=== PATIENT | female | born 1960 | race Caucasian/White ===

== ENCOUNTER 2021-02-05 09:46 | Observation (INO) | payer SELFPAY ==
[2021-02-05] VITALS (12 sets, daily range): BP systolic 91–114; BP diastolic 50–73; PULSE 74–110; RESP 16–20; TEMP 36.2–36.9; O2SAT 95–99; BMI 29.7
--- NOTE | ~2021-02-05 | CT_ITS ---
EXAMINATION: CT abdomen pelvis w con EXAM DATE: 02/05/2021 10:51 INDICATION: Lower abdominal pain, bloody stools. TECHNIQUE: Spiral CT of the abdomen and pelvis was performed following intravenous injection of 100 m L Omnipaque 350. Axial, coronal and sagittal images of the abdomen and pelvis were reviewed. The do se-length product (DLP) for this examination was 510.29 mGy-cm. The exposure was tailored according to patient size (auto mA exposure control), and iterative reconstruction (ASIR) was used as additiona l dose reduction technique. Comparison is made to prior examination from 10/25/2018. FINDINGS: The liver, spleen, adrenal glands and pancreas are unremarkable. Gallbladder is unremark able. No biliary obstruction. There is no nephrolithiasis or hydronephrosis. The uterus is not id entified and has likely been surgically resected. The bladder is unremarkable. There is no retroper itoneal or pelvic lymphadenopathy. Moderate aortoiliac arterial sclerosis. There is severe transverse and descending colonic wall edema with some surrounding fat stranding, les s edema in the sigmoid colon. There are scattered colonic diverticula, however these findings likely are colitis rather than diverticulitis. There is no pneumatosis, and superior mesenteric vasculature enhances as expected. Most likely infectious etiology. The appendix is normal. The stomach and small bowel are unremarkable. No free intraperitoneal gas. The heart is normal in size. There are no pericardial or pleural effusions. The lung bases are unremarkable. There are no osteoblastic or ost eolytic lesions identified. Moderate to severe disc disease L4-5 and L5-S1. IMPRESSION: 1. Transverse and descending colonic colitis, probably infectious etiology but check lactate. 2. Resolution of previously seen pancreatic tail low density region. 3. Colonic diverticulosis. Reviewed, dictated and finalized at location A.
--- NOTE | ~2021-02-05 | XR_ITS ---
EXAMINATION: XR chest 2V DATE: 02/06/2021 15:54 INDICATION: Shortness of breath. Coarse breath sounds. TECHNIQUE: PA and lateral views of the chest were obtained. COMPARISON: Chest radiograph dated 10/25/2018 FINDINGS: The lungs remain clear with no focal airspace opacities, pulmonary edema, pleural effusion or pneumot horax. The cardiomediastinal silhouette is normal. Right breast implant. A few tiny surgical clips pr ojecting over the left infraclavicular region. Osteopenia with chronic lower thoracic compression fra cture, likely T9. IMPRESSION: 1. No acute cardiopulmonary disease. Reviewed, dictated and finalized at location A.
--- NOTE | 2021-02-05 10:12 | PC.NURSE ---
Ambulatory steady gait to room, x1.5 days N/V/D, bilat lower abd cramping pains like labor , denies dysuria and states after I urinate it relieves the pain . +daily cigarette smoker 1 PPD, states I quit alcohol two days ago , denies hx withdrawal seizures
--- NOTE | 2021-02-05 10:16 | ED.ABDPAIN ---
HPI - Abdominal Pain General Chief Complaint: Abdominal Pain Stated Complaint: abd pain Time Seen by Provider: 02/05/21 10:01 Source: patient Mode of arrival: ambulatory Limitations: no limitations History of Present Illness HPI narrative: This is a 60 year old female who presents for evaluation of left lower abdominal pain. She states this pain has been present for 2 days. It is constant and nonradiating. She developed nausea, vomiting and diarrhea yesterday. She also reports she passed significant amount of blood in her stool yesterday. She denies diarrhea or bloody stools today. She has not taken anything for pain. She denies history of diverticulitis or diverticulosis. She has never had a colonoscopy due to lack of insurance. She does not taken anticoagulation. Onset (ago): day(s) (2) Pain Consistency: constant Location: LLQ Exacerbating factors: movement Associated symptoms: nausea, vomiting, diarrhea and hematochezia Related Data Home Medications Medication Instructions Recorded Confirmed aspirin [Adult Low Dose Aspirin] 81 mg PO HS 02/05/21 02/05/21 metoprolol succinate 25 mg PO HS 02/05/21 02/05/21 multivit with min-folic acid 1 tablet PO HS 02/05/21 02/05/21 [Adult One Daily Multivitamin] omega-3 fatty acids [Fish Oil] 1,000 mg PO HS 02/05/21 02/05/21 quetiapine 300 mg PO HS 02/05/21 02/05/21 simvastatin 20 mg PO HS 02/05/21 02/05/21 Allergies Allergy/AdvReac Type Severity Reaction Status Date / Time Sulfa (Sulfonamide Allergy Unknown Difficulty Verified 02/05/21 15:12 Antibiotics) Breathing Review of Systems Review of Systems: All systems reviewed & are unremarkable except as noted in HPI and below PMFSH Past Medical History Medical History (Updated 02/05/21 @ 15:46 by Maame Tyler PA-C) Anxiety Cancer of left breast Status post bilateral mastectomy and chemoradiation. Depression Dyslipidemia Hypertension Tobacco abuse Surgical History Surgical History (Updated 02/05/21 @ 15:42 by Maame Tyler PA-C) History of bilateral mastectomy History of hysterectomy History of tonsillectomy Family History Family History Mother Diabetes mellitus Grandparent Diabetes mellitus Social History Social History (Updated 02/05/21 @ 15:42 by Maame Tyler PA-C) Social History: Surrogate decision maker: Cyndee Cobos, daughter. Code status: Full code. Smoking packs per day: 1 Smoking cigarettes per day: 20.0 Years smoked: 40 Smoking pack-years: 40.00 Smoking status: Current every day smoker Tobacco type: cigarettes Second hand tobacco smoke exposure: Yes Alcohol intake: former Drinks per week: 15 Substance use: never Additional living arrangements comments: The patient lives in [place]. Gender identity (if verbalized by the patient): Female Sexual Orientation (if Verbalized by the Patient): Straight or Heterosexual Spiritual care concerns: No Exam Const: General: no acute distress and alert Orientation/consciousness: patient oriented x3 Chest: Chest palpation & inspection: normal inspection of the chest Resp: Effort & Inspection: normal respiratory effort and no retractions Auscultation: clear to auscultation bilaterally Cardio: Rate: regular rate Rhythm: regular rhythm Heart sounds: no murmurs GI: GI Palp: Yes Soft to palpation, Yes Tenderness to palpation present (GI) and Yes Guarding due to palpation present (GI) Auscultation: Hypoactive bowel sounds present Skin: General skin exam: normal color Neuro: General: patient oriented x3, moves all extremities and CN's II-XI intact bilaterally Course Reevaluation(s) Date: 02/05/21 Time: 11:40 Consultations Consultation #1: I discussed case with Dr. Epps CT and labs. He accepts patient to hospitalist service for colitis. IT is likely infectious so they will assess to see if she needs GI consult. Date: 02/05/21
[2021-02-05 10:19] LABS: Basophils Percent Auto 0.3 % (0.2-1.2); Eosinophils Absolute Auto 0.2 K/mm3 (0-0.3); Eosinophils Percent Auto 1.2 % (0-4.4); Hematocrit 39.4 % (37.0-47.0); Hemoglobin 13.5 g/dL (12.0-15.0); Immature Granulocyte Absolute 0.06 K/mm3 (0.00-0.031); Immature Granulocyte Percent A 0.4 % (0-0.5); Immature Platelet Fraction Pct 4.3 % (0.9-11.2); Lymphocytes Absolute Auto 3.05 K/mm3 (0.9-3.2); Lymphocytes Percent Auto 20.7 % (18.3-44.2); Mean Corpuscular HGB Conc 34.3 g/dl (32-36); Mean Corpuscular Volume 99.2 fl (80-100); Mean Platelet Volume 10.8 fl (7.4-10.4); Monocytes Absolute Auto 0.7 K/mm3 (0.1-0.6); Monocytes Percent Auto 4.6 % (2.6-8.5); Neutrophils Absolute Auto 10.7 K/mm3 (1.3-6.7); Neutrophils Percent Auto 72.8 % (45.5-73.1); Platelet Count Result 283 k/mm3 (150-375); Red Blood Count 3.97 M/mm3 (4.2-5.4); Red Cell Distribution Width 12.8 % (11.5-14.5); White Blood Count 14.7 K/mm3 (4.5-10.0)
[2021-02-05 10:22] LABS: Add Urine Microscopic? YES; Appearance Urine Cloudy (Clear); Bacteria Urine 2+ /hpf; Bilirubin Urine Negative (Negative); Blood Urine Negative (Negative); Color Urine Yellow (Yellow); Glucose Urine UA Negative (Negative); Ketones Urine Negative (Negative); Leukocyte Esterase Ur Negative LEU/UL (Negative); Mucus Urine Rare /lpf; Nitrate Urine Negative (Negative); Protein Urine Negative (Negative); RBC Urine 0-2 /hpf (0-2); Specific Grav Ur 1.006 (1.001-1.035); Squamous Epithelial Cell Urine Occasional /hpf (Few); Urobilinogen Urine Negative mg/dL (<2.0); WBC Urine 0-3 /hpf
[2021-02-05] MEDS: ONDANSETRON INJ 4 MG/2 ML VIAL IV PUSH (10:40)
[2021-02-05] MEDS: LACTATED RINGERS 1,000 ML 999 ML IV CONT (10:40)
[2021-02-05] MEDS: MORPHINE SULFATE (*CRX) 4 MG/ML INJ IV PUSH (10:40)
[2021-02-05 10:44] LABS: INR 0.9
[2021-02-05 10:48] LABS: Lactic Acid Reflex 1.1 mmol/L (0.7-2.1); Partial Thromboplastin Time 26.4 SECONDS (22.3-36.8)
[2021-02-05 10:48] LABS: Estimated CRCL calculation 92 ml/min; Estimated Glomerular Filt Rate > 60
[2021-02-05 11:05] LABS: Alanine Aminotransferase 25 U/L (4-35); Albumin Level 4.2 g/dL (3.5-5.1); Alkaline Phosphatase 81 U/L (38-126); Anion Gap 5 mmol/L (8-16); Aspartate Amino Transferase 25 U/L (14-36); Bilirubin,Total 0.3 mg/dL (0.2-1.3); Blood Urea Nitrogen 13 mg/dL (7-17); Calcium 8.9 mg/dL (8.4-10.2); Carbon Dioxide 29 mmol/L (22-30); Chloride 100 mmol/L (98-107); Estimated CRCL calculation 92 ml/min; Estimated Glomerular Filt Rate > 60; Glucose 130 mg/dL (65-105); Lipase 46 U/L (23-300); Potassium 3.8 mmol/L (3.4-5.0); Sodium 134 mmol/L (137-145)
--- NOTE | 2021-02-05 14:22 | PC.NURSE ---
This patient, Shelby Mera, was admitted to [facility] Surg Room 313-01. Patient/family oriented to hospital policies and general routines including ID bracelet, bed and alarms, visiting hours, pain management, procedures, bathroom and other care routines, personal items, smoking policy, room service/diet, and visiting hours.Report received from Tiffanie AMADOR Information on how to activate the Rapid Response Team has been discussed. Patient/Family are encouraged to report perceived risks to care and to ask questions if they do not understand what they are told or what they should do.
--- NOTE | 2021-02-05 14:30 | PM.IMHP ---
H&P: HPI History of Present Illness Date/Time: 02/05/21 14:30 Chief Complaint: Abdominal pain. Narrative: This is a 60-year-old female smoker with hypertension, dyslipidemia, and depression who presented to the emergency department earlier today for evaluation of abdominal pain for the last 2 days. She reports a gradual onset of diffuse lower abdominal cramping discomfort since Tuesday. It seems to come and go in waves of intensity ?just like labor pains? and she gives no aggravating or alleviating factors. The discomfort does not radiate but seems to have centered more so in the left abdomen over the last day or so. She had multiple episodes of diarrhea on Tuesday, at 1 point in time she passed what she thought was a pretty large amount of bright red blood per rectum. Since that time she has continued to have abdominal discomfort and has passed a lot of flatus. She has not eaten much over the last 2 days and her diarrhea has tapered off, in fact she has not had a bowel movement since sometime yesterday. Imaging today showed findings of colitis and she reports having 3 similar episodes over the last couple of months although this is the 1st time that she has been evaluated for it. She has never had a colonoscopy and has no known history of inflammatory bowel disease. She has not had any change in weight and denies recent travel, recent antibiotic use, and sick contacts. No fever, chills, or sweats. She denies vomiting. Review of Systems Review of Systems: Narrative: Twelve systems were reviewed with pertinent positives and negatives as per HPI. She denies cold and flu symptoms. No chest pain or shortness of breath. Weight has remained stable. No dysuria. Fully vaccinated against COVID-19. Drinks 2 to 3 glasses of wine a night. She has never had signs or symptoms of alcohol withdrawal. Except as documented, all other systems were reviewed and are negative. [facility] Past Medical History Medical History Anxiety Cancer of left breast Status post bilateral mastectomy and chemoradiation. Depression Dyslipidemia Hypertension Tobacco abuse Surgical History Surgical History History of bilateral mastectomy History of hysterectomy History of tonsillectomy Family History Family History Mother Diabetes mellitus Grandparent Diabetes mellitus Social History Social History (Updated 02/06/21 @ 00:27 by Maame Tyler PA-C) Social History: Surrogate decision maker: Cyndee Cobos, daughter. Code status: Full code. Smoking packs per day: 1 Smoking cigarettes per day: 20.0 Years smoked: 40 Smoking pack-years: 40.00 Smoking status: Current every day smoker Tobacco type: cigarettes Second hand tobacco smoke exposure: Yes Alcohol intake: former Drinks per week: 15 Substance use: never Additional living arrangements comments: The patient lives in [place]. 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 Gender identity (if verbalized by the patient): Female Sexual Orientation (if Verbalized by the Patient): Straight or Heterosexual Spiritual care concerns: No Meds Home Medications and Allergies Home Medications Medication Instructions Recorded Confirmed Type aspirin [Adult Low Dose Aspirin] 81 mg PO HS 02/05/21 02/05/21 History metoprolol succinate 25 mg PO HS 02/05/21 02/05/21 History multivit with min-folic acid 1 tablet PO HS 02/05/21 02/05/21 History [Adult One Daily Multivitamin] omega-3 fatty acids [Fish Oil] 1,000 mg PO HS 02/05/21 02/05/21 History quetiapine 300 mg PO HS 02/05/21 02/05/21 History simvastatin 20 mg PO HS 02/05/21 02/05/21 History Allergies Allergy/AdvReac Type Severity Reaction Status Date / Time Sulfa (Sulfonamide Allergy Unknown Difficult
[2021-02-05] MEDS: LACTATED RINGERS 1,000 ML 125 ML IV CONT ×2 (14:41→23:22)
[2021-02-05] MEDS: THERAPEUTIC MULTIVITAMINS/MINERALS TAB (*BKC) 1 TABLET PO (20:37)
[2021-02-05] MEDS: QUEtiapine FUMARATE 100 MG TABLET 300 MG PO (20:37)
[2021-02-05] MEDS: SIMVASTATIN 20 MG TABLET PO (20:37)
[2021-02-05] MEDS: OMEGA 3 POLYUNSAT FATTY ACIDS 1 GM CAP PO (20:37)
[2021-02-06] VITALS (9 sets, daily range): BP systolic 92–151; BP diastolic 53–104; PULSE 92–108; RESP 16–20; TEMP 36.1–37; O2SAT 95–99
[2021-02-06 06:20] LABS: Basophils Percent Auto 0.3 % (0.2-1.2); Eosinophils Absolute Auto 0.3 K/mm3 (0-0.3); Eosinophils Percent Auto 3.4 % (0-4.4); Hematocrit 32.6 % (37.0-47.0); Hemoglobin 10.8 g/dL (12.0-15.0); Immature Granulocyte Absolute 0.03 K/mm3 (0.00-0.031); Immature Granulocyte Percent A 0.3 % (0-0.5); Lymphocytes Absolute Auto 3.41 K/mm3 (0.9-3.2); Lymphocytes Percent Auto 39.7 % (18.3-44.2); Mean Corpuscular HGB Conc 33.1 g/dl (32-36); Mean Corpuscular Hemoglobin 34.1 pg (26-34); Mean Corpuscular Volume 102.8 fl (80-100); Mean Platelet Volume 10.1 fl (7.4-10.4); Monocytes Absolute Auto 0.5 K/mm3 (0.1-0.6); Monocytes Percent Auto 5.5 % (2.6-8.5); Neutrophils Absolute Auto 4.4 K/mm3 (1.3-6.7); Neutrophils Percent Auto 50.8 % (45.5-73.1); Platelet Count Result 220 k/mm3 (150-375); Red Blood Count 3.17 M/mm3 (4.2-5.4); White Blood Count 8.6 K/mm3 (4.5-10.0)
[2021-02-06 06:30] LABS: Alanine Aminotransferase 19 U/L (4-35); Albumin Level 3.5 g/dL (3.5-5.1); Alkaline Phosphatase 57 U/L (38-126); Anion Gap 5 mmol/L (8-16); Aspartate Amino Transferase 21 U/L (14-36); Bilirubin,Total < 0.1 mg/dL (0.2-1.3); Blood Urea Nitrogen 10 mg/dL (7-17); Calcium 8.6 mg/dL (8.4-10.2); Carbon Dioxide 28 mmol/L (22-30); Chloride 105 mmol/L (98-107); Estimated CRCL calculation 93 ml/min; Estimated Glomerular Filt Rate > 60; Glucose 138 mg/dL (65-105); Magnesium 1.6 mg/dL (1.6-2.3); Potassium 3.6 mmol/L (3.4-5.0); Sodium 138 mmol/L (137-145)
[2021-02-06] MEDS: PANTOPRAZOLE SODIUM IV 40 MG VIAL IV PUSH (08:31)
[2021-02-06] MEDS: LACTATED RINGERS 1,000 ML 80 ML IV CONT (11:47)
--- NOTE | 2021-02-06 13:19 | PM.IMPN ---
Progress Note: A&P Assessment and Plan (1) Acute colitis: Code(s): K52.9 - Noninfective gastroenteritis and colitis, unspecified Status: Acute Assessment and Plan: Presumed infectious colitis -She has been started on Zosyn per antibiotic stewardship recommendations -Stool cultures ordered although she has not been able to produce a bowel movement -she has had multiple episodes like this in the past -GI has been consulted -she may have issues obtaining a colonoscopy outpatient as she has no insurance. I have asked her to discuss her concerns with the GI doctor (2) Hypertension: Code(s): I10 - Essential (primary) hypertension Status: Chronic Assessment and Plan: Last blood pressure 118/77 -will hold metoprolol due to some hypotension but it appears she is improving so consider restarting with tomorrows home medications if she continues to have normal bps. (3) Dyslipidemia: Code(s): E78.5 - Hyperlipidemia, unspecified Status: Acute Assessment and Plan: Continue statin. LFTs within normal limits. (4) Depression with anxiety: Code(s): F41.8 - Other specified anxiety disorders Status: Acute Assessment and Plan: Continue quetiapine. (5) Tobacco abuse: Code(s): Z72.0 - Tobacco use Status: Acute Assessment and Plan: Smoking cessation is encouraged. She declines the need for nicotine patch. (6) Hyperglycemia: Code(s): R73.9 - Hyperglycemia, unspecified Status: Acute Assessment and Plan: Fasting glucose 138 -pt reports she checks her glucose randomly at home and is usually elevated and she would not be surprised if she had diabetes -a1c in the AM Time Spent With Patient Time with patient: 25 - 35 minutes Subjective Date/time seen: 02/06/21 13:19 Interval history: Pt is a 60 year old female here for colitis. Patient was seen today and states her pain had been pretty well controlled but in the last hour so she has been having more abdominal pain. She rates this as a sharp for added 10 pain in her lower abdomen. She has not had any bowel movements since admission. She is passing gas. Although she is not diabetic, she says she has a glucometer and takes her blood glucose occasionally and is pretty sure she has diabetes. She does not have insurance and is worried about obtaining a colonoscopy outpatient as she does not think she will be able to do so. She states that she has not really eaten solid food since Tuesday and feels little better compared to prior to admission but still does not feel at baseline. Of note, she had coarse breath sounds and she states that she smokes and occasionally gets short of breath when bring in the groceries and wheezes. She has no chest pain with this. Review of Systems Review of Systems: All systems reviewed & are unremarkable except as noted in HPI and below Exam Narrative: Exam Narrative: General: Well developed well nourished patient in NAD HEENT: normocephalic Neck: supple Neuro: Alert and oriented x 4 CV:RRR Resp: Coarse breath sounds throughout, no wheezing Abd: Soft, nondistended. Exquisite pain in the left upper quadrant and lower quadrants. Positive bowel sounds Extremities: No swelling, erythema, or pain to palpation to the lower extremity. Objective Data Vital Signs Vital Signs: Vital Signs - 24 hr 02/05/21 13:35 02/05/21 14:00 02/05/21 15:50 Temperature 98.4 F Pulse Rate 96 88 74 Respiratory Rate 20 16 Blood Pressure 93/50 L 92/58 L Pulse Oximetry 98 97 98 02/05/21 18:17 02/05/21 18:18 02/05/21 20:00 Temperature Pulse Rate 96 100 85 Respiratory Rate 16 16 Blood Pressure 105/67 101/67 104/67 Pulse Oximetry 98 98 02/05/21 20:05 02/05/21 20:10 02/05/21 20:15 Temperature Pulse Rate 97 100 Respiratory Rate Blood Pressure 114/65 113/67 Pulse Oximetry 96 02/05/21 21:44 02/06/21 06:00
--- NOTE | 2021-02-06 13:34 | WPDGICN ---
Assessment and Plan Assessment and plan (1) Acute colitis: Code(s): K52.9 - Noninfective gastroenteritis and colitis, unspecified Status: Acute Assessment and Plan: started on iv antibiotics and feeling better, could be ischemic, infectious, ibd, etc no more diarrhea and pain has improved she is asking to go home, probably complete 5 days of oral antibiotics with only soft diet as tolerated will need to have a colonoscopy 4-5 weeks since never had one but she says that will be impossible because lack of insurance. I encourage her to seek for financial help and call our office, hopefully we could do her colonoscopy as recommended (2) Lower abdominal pain: Code(s): R10.30 - Lower abdominal pain, unspecified Status: Acute Assessment and Plan: signifincantly improved no fever and normal wbc today (3) Bloody diarrhea: Code(s): R19.7 - Diarrhea, unspecified Status: Acute Assessment and Plan: denies any more (4) Tobacco abuse: Code(s): Z72.0 - Tobacco use Status: Acute Assessment and Plan: needs to quit smoking (5) Depression with anxiety: Code(s): F41.8 - Other specified anxiety disorders Status: Acute (6) Hypertension: Code(s): I10 - Essential (primary) hypertension Status: Chronic (7) Alcohol use: Code(s): Z72.89 - Other problems related to lifestyle Status: Acute Assessment and Plan: she drinks 3 glasses of wine daily, she is willing to quit GI Consult Note Consult date/time: 02/06/21 13:34 Reason for consult: colitis HPI: Shelby Mera is a 60 year old female with history of HTN, smoker, depression who came here with new onset of severe pain in lower abdomen last Tuesday, cramping but also describes as labor pains, next day followed by bloody diarrhea so finally she came to the hospital. CT scan a/p reviewed, showed transverse and descending colonic colitis, probably infectious etiology, resolution of previously seen pancreatic tail low density region, colonic diverticulosis. No nausea or fever. WBC 14k but today normal, also normal liver enzymes and renal function. No more diarrhea. She is feeling much better today and would like to go home, tolerated liquid diet. She says that about 1-2 months ago had similar episode but very mild. She never had a colonoscopy. Review of Systems Eyes: Eyes: Reports no additional eye complaints ENT: Reports Normal hearing present Cardiovascular: Cardiovascular: Denies chest pain Respiratory: Respiratory: Denies dyspnea Gastrointestinal: Gastrointestinal: Reports abdominal pain Genitourinary: Genitourinary: Denies hematuria Musculoskeletal: Musculoskeletal: Denies neck pain Integumentary/Breasts: Skin/Breast: Reports system reviewed and no additional complaints, except as docu Neurologic: Reports system reviewed and no additional complaints, except as documented Psychiatric: Psychiatric: Reports no additional psychiatric complaints [facility] Past Medical History Medical History (Updated 02/06/21 @ 13:39 by Chai Barreto MD) Alcohol use Anxiety Bloody diarrhea Cancer of left breast Status post bilateral mastectomy and chemoradiation. Depression Dyslipidemia Hypertension Lower abdominal pain Tobacco abuse Surgical History Surgical History History of bilateral mastectomy History of hysterectomy History of tonsillectomy Family History Family History Mother Diabetes mellitus Grandparent Diabetes mellitus Social History Social History (Updated 02/06/21 @ 00:27 by Maame Tyler PA-C) Social History: Surrogate decision maker: Cyndee Cobos, daughter. Code status: Full code. Smoking packs per day: 1 Smoking cigarettes per day: 20.0 Years smoked: 40 Smoking pack-years: 40.00 Smoking status: Current ev
[2021-02-06] MEDS: HYDROcodone/acetaminophen (*CRX) 5-325 MG TABLET 1 TAB PO (17:49)
[2021-02-06] MEDS: QUEtiapine FUMARATE 100 MG TABLET 300 MG PO (20:30)
[2021-02-06] MEDS: OMEGA 3 POLYUNSAT FATTY ACIDS 1 GM CAP PO (20:30)
[2021-02-06] MEDS: THERAPEUTIC MULTIVITAMINS/MINERALS TAB (*BKC) 1 TABLET PO (20:30)
[2021-02-06] MEDS: SIMVASTATIN 20 MG TABLET PO (20:30)
[2021-02-07 05:11] VITALS: BP 127/83; PULSE 97; RESP 20; TEMP 36.1; O2SAT 100
[2021-02-07 06:21] LABS: Basophils Percent Auto 0.5 % (0.2-1.2); Eosinophils Absolute Auto 0.3 K/mm3 (0-0.3); Eosinophils Percent Auto 3.5 % (0-4.4); Hematocrit 32.1 % (37.0-47.0); Hemoglobin 10.7 g/dL (12.0-15.0); Immature Granulocyte Absolute 0.02 K/mm3 (0.00-0.031); Immature Granulocyte Percent A 0.2 % (0-0.5); Lymphocytes Absolute Auto 3.55 K/mm3 (0.9-3.2); Lymphocytes Percent Auto 42.8 % (18.3-44.2); Mean Corpuscular HGB Conc 33.3 g/dl (32-36); Mean Corpuscular Hemoglobin 33.3 pg (26-34); Mean Platelet Volume 10.4 fl (7.4-10.4); Monocytes Absolute Auto 0.5 K/mm3 (0.1-0.6); Monocytes Percent Auto 6.4 % (2.6-8.5); Neutrophils Absolute Auto 3.9 K/mm3 (1.3-6.7); Neutrophils Percent Auto 46.6 % (45.5-73.1); Platelet Count Result 240 k/mm3 (150-375); Red Blood Count 3.21 M/mm3 (4.2-5.4); Red Cell Distribution Width 12.6 % (11.5-14.5); White Blood Count 8.3 K/mm3 (4.5-10.0)
[2021-02-07 06:34] LABS: Anion Gap 4 mmol/L (8-16); Blood Urea Nitrogen 12 mg/dL (7-17); CRP 1.3 mg/dL (<1.0); Calcium 9.1 mg/dL (8.4-10.2); Carbon Dioxide 29 mmol/L (22-30); Chloride 106 mmol/L (98-107); Estimated CRCL calculation 108 ml/min; Estimated Glomerular Filt Rate > 60; Glucose 114 mg/dL (65-105); Hemoglobin A1C 5.2 % (<5.7); Potassium 3.7 mmol/L (3.4-5.0); Sodium 139 mmol/L (137-145)
[2021-02-07] MEDS: HYDROcodone/acetaminophen (*CRX) 5-325 MG TABLET 1 TAB PO (07:30)
[2021-02-07 07:42] LABS: Folic Acid > 20.0 ng/mL (2.76->20)
[2021-02-07] MEDS: PANTOPRAZOLE SODIUM IV 40 MG VIAL IV PUSH (08:19)
--- NOTE | 2021-02-07 10:26 | PM.DS ---
DS: Admitting Diagnosis Admitting Diagnosis Admitting Diagnosis: colitis DS: Discharge Diagnosis Discharge Diagnosis (1) Acute colitis: Code(s): K52.9 - Noninfective gastroenteritis and colitis, unspecified Status: Acute Assessment and Plan: Presumed infectious colitis -patient was given Zosyn during hospitalization and discharged on Augmentin and Flagyl -Stool cultures were ordered although she was not able to produce a bowel movement so they were canceled -she has had multiple episodes like this in the past -GI has been consulted and recommended colonoscopy in 6 weeks (2) Hypertension: Code(s): I10 - Essential (primary) hypertension Status: Chronic Assessment and Plan: Last blood pressure 127/83 -continue home metoprolol (3) Dyslipidemia: Code(s): E78.5 - Hyperlipidemia, unspecified Status: Acute Assessment and Plan: Continue statin. LFTs within normal limits. (4) Depression with anxiety: Code(s): F41.8 - Other specified anxiety disorders Status: Acute Assessment and Plan: Continue quetiapine. (5) Tobacco abuse: Code(s): Z72.0 - Tobacco use Status: Acute Assessment and Plan: Smoking cessation is encouraged. She declines the need for nicotine patch. (6) Hyperglycemia: Code(s): R73.9 - Hyperglycemia, unspecified Status: Acute Assessment and Plan: A1c 5.2, No signs of diabetes DS: Summary Hospital Course Hospital Course: Patient is a 60-year-old female who presented emergency room for abdominal pain and bloody diarrhea. Vitals in the ER were temperature 97.1?, pulse 110, respiratory rate 18, blood pressure 106/73, pulse ox 98 on room air. Initial white blood cell count 14.7, hemoglobin and hematocrit normal, platelets 283. Lactic acid 1.1, BMP within normal limits. Hepatic panel normal. Abdominal CT showed transverse and descending colonic colitis which is classified as severe which likely infectious etiology with colonic diverticulosis. Patient was admitted to the hospitalist service and started on Zosyn. Her pain and diarrhea resolved with this treatment. She saw GI who recommended a colonoscopy outpatient 6 weeks. The patient does not have insurance and we discussed different ways of obtaining assistance as a colonoscopy is very important. We also talked about [employer] insurance and stopping smoking which was save her money as well. Overall, the patient improved throughout her stay. She had no diarrhea while hospitalized so a stool culture was not able to be obtained. She was discharged on Augmentin and Flagyl. She was educated about the worrisome signs and symptoms to come back to emergency room for and was discharged in stable condition. She was found to have osteopenia on chest x-ray. I discussed this with the patient and she is going to start supplementations of vitamin-D and calcium. Status at Discharge Functional status at discharge: independent ambulation Overall status at discharge: patient is progressing back to baseline Time Spent with Patient Time attestation: Total time spent providing and/or coordinating discharge services:35 min Time spent: Greater than 30 minutes Exam Narrative: Exam Narrative: General: Well developed well nourished patient in NAD HEENT: normocephalic Neck: supple Neuro: Alert and oriented x 4 CV:RRR Resp: Coarse breath sounds throughout, no wheezing Abd: Soft, nondistended. Exquisite pain in the left upper quadrant and lower quadrants. Positive bowel sounds Extremities: No swelling, erythema, or pain to palpation to the lower extremity. DS: Data Data Completed and Pending Labs on day of discharge: Labs from last 24 hours 02/07/21 02/07/21 02/07/21 05:40 05:40 05:40 WBC 8.3 RBC 3.21 L Hgb 10.7 L Hct 32.1 L MCV 100.0 MCH 33.3 MCHC 33.3 RDW 12.6 Plt Count 240 MPV 10.
== END 2021-02-07 10:50 | disposition home or self-care (01) ==
LOC: ANHED 11:42 → ANH3MEDSUR 13:15
PROVIDERS: Physician Assistant; Admitting Provider Family Medicine; Emergency Provider General Practice; Visit Provider Internal Medicine
DX: K52.9 Noninfective gastroenteritis and colitis, unspecified (principal); I10 Essential (primary) hypertension; E78.5 Hyperlipidemia, unspecified; F41.8 Other specified anxiety disorders; R10.30 Lower abdominal pain, unspecified; R73.9 Hyperglycemia, unspecified; F17.210 Nicotine dependence, cigarettes, uncomplicated
CPT/HCPCS: 36415; 71046; 74177; 80048; 80053; 81001; 82607; 82746; 83036; 83605; 83690; 83735; 85025; 85055; 85610; 85730; 86140; 86850; 86900; 86901; 96361; 96365; 96366; 96375; 99285; A9270; C9113; G0378; G0379; J0131; J2270; J2405; J2543; J7120; Q9967

== ENCOUNTER 2022-11-02 14:02 | Emergency (ER) | payer BC, SELFPAY ==
--- NOTE | ~2022-11-02 | XR_ITS ---
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 RESULT: Lines, tubes, and devices: Left axillary surgical clips. Soft tissue surgical clips along the right lateral chest/breast. Lungs and pleura: Small focus of left peripheral scar/fibrosis. Diffuse reticular nodular opacities with cuffing. Cardiomediastinal silhouette: Normal heart size. Calcified right hilar node. 2.5 cm ovoid left hilar masslike opacity. Other: No acute osseous or upper abdominal finding. Stable moderate compression deformity at T9. IMPRESSION: 1. Diffuse pulmonary opacities may represent bronchiolitis, as can be seen with atypical infection, a sthma, aspiration, and small airways disease. 2. Left hilar masslike opacity may represent a pulmonary vessel viewed en face, hilar lymph node, or hilar mass. Recommend timely outpatient CT of the chest with contrast for further evaluation. Reviewed, dictated and finalized at location K. O OFFICER IMPRESSION: 1. Diffuse pulmonary opacities may represent bronchiolitis, as can be seen with atypical infection, asthma, aspiration, and small airways disease. 2. Left hilar masslike opacity may represent a pulmonary vessel viewed en face, hilar lymph node, or hilar mass. Recommend timely outpatient CT of the chest w ith contrast for further evaluation.
[2022-11-02 14:20] VITALS: BP 123/83; PULSE 108; RESP 24; TEMP 36.6; O2SAT 90
--- NOTE | 2022-11-02 14:21 | ED.GENADULT ---
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 Patient states that she has a long history of tobacco use and states her anticipated quite date is November 10. States that she has tried everything to quit, patches, gum Chantix and nothing has worked. Patient reports that she has smoked since she was 16 years old.Patient reports that she has noted increased dyspnea since the middle of September with exertion. Patient reports that she has a lot of coughing at times and she will throw up.Patient reports that she bought a pulse oximeter and checked her sat yesterday and she did ave a reading once at 84%, has been using her albuterol inhaler. Patient does have some mild tachypnea with SAO2 90% at triage. MD complaint: shortness of breath Onset (ago): month(s) (2) Treatments prior to arrival: other (albuterol) Related Data Home Medications Medication Instructions Recorded Confirmed metoprolol succinate 25 mg 25 mg PO HS 02/05/21 11/02/22 tablet,extended release 24 hr quetiapine 300 mg tablet 300 mg PO HS 02/05/21 11/02/22 simvastatin 20 mg tablet 20 mg PO HS 02/05/21 11/02/22 Allergies Allergy/AdvReac Type Severity Reaction Status Date / Time Sulfa (Sulfonamide Allergy Unknown Difficulty Verified 11/02/22 14:52 Antibiotics) Breathing Review of Systems Review of Systems: CONSTITUTIONAL: Denies fever, chills, or sweats. EYES: Denies visual changes, redness, or discharge. ENT: Denies rhinorrhea, congestion, sore throat, or otalgia. CARDIOVASCULAR: Denies chest pain, palpitations, or edema. RESPIRATORY: reports cough and dyspnea mainly exertional GASTROINTESTINAL: Denies abdominal pain, nausea, vomiting, or diarrhea. GENITOURINARY: Denies dysuria or hematuria. SKIN: Denies rash or itching. MUSCULOSKELETAL: Denies back pain, joint pain, or myalgia. NEUROLOGIC: Denies headache, numbness, or weakness. PSYCHIATRIC: Reports history of anxiety or depression. All systems reviewed & are unremarkable except as noted in HPI and below PMFSH Past Medical History Medical History Alcohol use Anxiety Bloody diarrhea Cancer of left breast Status post bilateral mastectomy and chemoradiation. 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 The patient has 4 children. The patient smokes at least a pack a cigarettes a day. Surrogate decision maker: Cyndee Cobos, daughter. Code status: Full code. Smoking packs per day: 1 Smoking cigarettes per day: 20.0 Years smoked: 45 Smoking pack-years: 45.00 Smoking status: Current every day smoker Tobacco type: cigarettes Second hand tobacco smoke exposure: No Alcohol intake: current Drinks per week: 10 Substance use: never Substance use type: does not use Lack of Transportation: No Lack of Food: Sometimes True Current Housing: I Have Housing Concerned About Future Housing: No Difficulty Paying Gas/Electric Bills: No Difficulty Paying for Meds: No Currently Unemployed: No Education: Tr
--- NOTE | 2022-11-02 14:31 | ECG_ITS ---
Measurements Intervals [place] Rate: 100 P: 51 NM: 176 QRS: 48 QRSD: 80 T: 52 QT: 328 QTc: 424 Interpretive Statements SINUS TACHYCARDIA POSSIBLE LEFT ATRIAL ENLARGEMENT RSR' IN V1 OR V2, PROBABLY NORMAL VARIANT BORDERLINE ECG NO PREVIOUS ECG AVAILABLE FOR COMPARISON Electronically Signed On 11-02-2022 14:38:05 ELECTRICAL CALIBRATOR by Brandyn Moore D.O.
== END 2022-11-02 15:40 | disposition short-term general hospital (02) ==
PROVIDERS: Emergency Provider Registered Nurse
DX: R06.00 Dyspnea, unspecified (principal); R91.8 Other nonspecific abnormal finding of lung field; E78.5 Hyperlipidemia, unspecified; I10 Essential (primary) hypertension; Z85.3 Personal history of malignant neoplasm of breast; Z90.13 Acquired absence of bilateral breasts and nipples; F17.210 Nicotine dependence, cigarettes, uncomplicated; F32.A Depression, unspecified
CPT/HCPCS: 71046; 93005; 99213; G0463

== ENCOUNTER 2022-11-02 16:39 | Observation (INO) | payer BC, MEDICAID, SELFPAY ==
[2022-11-02] VITALS (17 sets, daily range): BP systolic 140–163; BP diastolic 83–90; PULSE 103–119; RESP 14–23; TEMP 36.7–36.8; O2SAT 89–94
--- NOTE | ~2022-11-02 | CT_ITS ---
EXAMINATION: CTA chest PE protocol DATE: 11/02/2022 17:30 INDICATION: tachycardia, SOB, syncope TECHNIQUE: Computed tomography angiography (CTA) of the chest was performed with 100 mL Omnipaque-350 intravenous contrast timed to evaluate the pulmonary arteries. Coronal maximum intensity projection 3D-reconstructions were created by the technologist. The dose-length product (DLP) was 280.24 mGy-cm. Automated exposure control and iterative reconstruction technique were employed. COMPARISON: X-ray chest, same date and 11/02/2022. CT abdomen and pelvis 02/05/2021. FINDINGS: Lung parenchyma and airways: Paraseptal emphysematous changes. Larger bullae in the left peripheral u pper lobe with nodular, irregular surrounding opacities, which may represent nodular scarring, satell ite/thickness tumor, or less likely a primary tumor. Mild diffuse reticular and reticulonodular opaci ties. Pleura: Unremarkable. Thoracic inlet, axillae and chest wall: Unremarkable. Thoracic aorta: Mild ectasia and arch calcification. Mediastinum: Infiltrative, conglomerate soft tissue or nir mass involving the left hilum, prevascul ar space, AP window, left paratracheal space, and subcarinal space. Significant narrowing of the pritesh ersing pulmonary arteries and bronchi. Mild central pulmonary artery dilation. Heart and pericardium: Normal. Coronary artery calcifications: Mild. Upper abdomen: No significant finding. Bones: Sclerosis with superior endplate deformity at T3. Stable moderate compression deformity at T9. Pulmonary arteries: Study quality: Adequate. No pulmonary emboli detected. IMPRESSION: 1. No CT evidence of acute pulmonary embolus. 2. Large left hilar lung/nir mass with extensive involvement of mediastinal nir spaces, and narro wing of the traversing bronchi and pulmonary arteries, concerning for malignancy. Nodular scarring in the left upper lobe versus satellite or synchronous tumor. Possible osseous metastatic lesion at T3. 3. Emphysematous change and mild respiratory bronchiolitis Reviewed, dictated and finalized at location K. RED BUCKLE ASSEMBLER IMPRESSION: 1. No CT evidence of acute pulmonary embolus. 2. Large left hilar lung/nir mass with extensive involvement of mediastinal n odal spaces, and narrowing of the traversing bronchi and pulmonary arteries, co ncerning for malignancy. Nodular scarring in the left upper lobe versus satelli te or synchronous tumor. Possible osseous metastatic lesion at T3. 3. Emphysematous change and mild respiratory bronchiolitis
--- NOTE | 2022-11-02 16:44 | ECG_ITS ---
Measurements Intervals [place] Rate: 106 P: NE: 0 QRS: 57 QRSD: 75 T: 68 QT: 309 QTc: 412 Interpretive Statements SINUS TACHYCARDIA INCOMPLETE RIGHT BUNDLE BRANCH BLOCK LOW QRS VOLTAGE IN PRECORDIAL LEADS BASELINE ARTIFACT- I, III, AVL, AVF ABNORMAL ECG COMPARED TO ECG 11/02/2022 14:29:07 NO SIGNIFICANT CHANGES Electronically Signed On 11-02-2022 16:53:14 WELDING MACHINE FEEDER by Brandyn Moore D.O.
[2022-11-02 17:02] LABS: Basophils Percent Auto 0.4 % (0.2-1.2); Eosinophils Absolute Auto 0.2 K/mm3 (0-0.3); Eosinophils Percent Auto 1.7 % (0-4.4); Hematocrit 39.1 % (37.0-47.0); Hemoglobin 13.1 g/dL (12.0-15.0); Immature Granulocyte Absolute 0.01 K/mm3 (0.00-0.031); Immature Granulocyte Percent A 0.1 % (0-0.5); Lymphocytes Absolute Auto 3.38 K/mm3 (0.9-3.2); Lymphocytes Percent Auto 37.8 % (18.3-44.2); Mean Corpuscular HGB Conc 33.5 g/dl (32-36); Mean Corpuscular Hemoglobin 33.6 pg (26-34); Mean Corpuscular Volume 100.3 fl (80-100); Mean Platelet Volume 9.4 fl (7.4-10.4); Monocytes Absolute Auto 0.6 K/mm3 (0.1-0.6); Monocytes Percent Auto 6.8 % (2.6-8.5); Neutrophils Absolute Auto 4.7 K/mm3 (1.3-6.7); Neutrophils Percent Auto 53.2 % (45.5-73.1); Platelet Count Result 279 k/mm3 (150-375); Red Cell Distribution Width 13.6 % (11.5-14.5); White Blood Count 8.9 K/mm3 (4.5-10.0)
[2022-11-02 17:09] LABS: Alanine Aminotransferase 27 U/L (6-35); Albumin Level 4.8 g/dL (3.5-5.1); Alkaline Phosphatase 94 U/L (38-126); Anion Gap 7 mmol/L (8-16); Aspartate Amino Transferase 29 U/L (14-36); Bilirubin,Total 0.5 mg/dL (0.2-1.3); Blood Urea Nitrogen 16 mg/dL (7-17); Calcium 9.6 mg/dL (8.4-10.2); Carbon Dioxide 29 mmol/L (22-30); Chloride 99 mmol/L (98-107); Estimated CRCL calculation 92 ml/min; Estimated Glomerular Filt Rate > 60; Glucose 102 mg/dL (65-110); Potassium 3.6 mmol/L (3.4-5.0); Sodium 135 mmol/L (137-145)
--- NOTE | 2022-11-02 17:13 | ED.SOB ---
HPI - SOB/Dyspnea General Chief Complaint: Shortness of Breath/Dyspnea Stated Complaint: SOB Time Seen by Provider: 11/02/22 16:55 History of Present Illness HPI Narrative: 62-year-old female with history of COPD, [id number] smoking history, hypertension and hyperlipidemia here for evaluation of shortness of breath. 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 States that she felt as though she could not get air in, and did fall to the ground. She did not hit her head or lose consciousness. She currently still feels short of breath, denies any chest pain. Patient was in her usual state of health this morning. She has a chronic nonproductive cough. She has not attempted her albuterol inhalers. She went to an urgent care facility and had an abnormal chest x-ray which prompted ED evaluation. Related Data Home Medications Medication Instructions Recorded Confirmed metoprolol succinate 25 mg 25 mg PO HS 02/05/21 11/02/22 tablet,extended release 24 hr quetiapine 300 mg tablet 300 mg PO HS 02/05/21 11/02/22 simvastatin 20 mg tablet 20 mg PO HS 02/05/21 11/02/22 Allergies Allergy/AdvReac Type Severity Reaction Status Date / Time Sulfa (Sulfonamide Allergy Unknown Difficulty Verified 11/02/22 14:52 Antibiotics) Breathing Review of Systems Review of Systems: Gen: Denies fevers or chills Eyes: Denies eye pain or visual change ENT: Denies congestion Respiratory: Reports shortness of breath CV: Denies chest pain or palpitations GI: Denies abdominal pain nausea, emesis or diarrhea : denies burning, urgency, frequency or hematuria Musculoskeletal: Denies back pain or muscle pain Neuro: Denies numbness, tingling, weakness or focal weakness Skin: Denies rash Except as documented, all other systems reviewed and negative [facility] Past Medical History Medical History Alcohol use Anxiety Bloody diarrhea Cancer of left breast Status post bilateral mastectomy and chemoradiation. Depression Dyslipidemia Hypertension Lower abdominal pain Tobacco abuse Surgical History Surgical History History of bilateral mastectomy History of hysterectomy History of tonsillectomy Family History Family History Mother Diabetes mellitus Grandparent Diabetes mellitus Social History Social History (Updated 02/06/21 @ 00:27 by Maame Tyler PA-C) Social History: Surrogate decision maker: Cyndee Cobos, daughter. Code status: Full code. Smoking packs per day: 1 Smoking cigarettes per day: 20.0 Years smoked: 40 Smoking pack-years: 40.00 Smoking status: Current every day smoker Tobacco type: cigarettes Second hand tobacco smoke exposure: Yes Alcohol intake: former Drinks per week: 15 Substance use: never Additional living arrangements comments: The patient lives in [place]. 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 Gender identity (if verbalized by the patient): Female Sexual Orientation (if Verbalized by the Patient): Straight or Heterosexual Spiritual care concerns: No Exam Narrative: APPEARANCE: Well appearing, no pain in distress, well-nourished. Head: Normocephalic and atraumatic. EYES: PERRLA/EOMI, conjunctivae clear NOSE: No nasal drainage EARS: External ear normal in appearance THROAT: Oropharynx is clear. Mucous membranes are moist. NECK: Supple. No adenopathy, no masses. RESPIRATORY: Airway patent, respirations nonlabored. Clear to auscultation bilaterally, no rales, rhonchi, wheezing. CARDIOVASCULAR: Tachycardic. No murmurs rubs or gallops. ABDOMINAL: Normoactive bowel sounds. Soft, nontender, nondistended. No rebound tenderness or guarding. MUSCULOSKELETAL: Extremities are warm and well-perfused. Moves all
[2022-11-02 17:38] LABS: Prothrombin Time 13.2 Seconds (11.1-14.7)
[2022-11-02 17:39] LABS: Partial Thromboplastin Time 28.1 SECONDS (22.3-36.8)
[2022-11-02 17:42] LABS: NT Pro B Type Natriuretic Pept 87 pg/mL (19.9-100); Troponin I < 0.012 ng/mL (0.000-0.034)
[2022-11-02] MEDS: LORazepam (*CRX) 0.5 MG TABLET 0.25 MG PO ×2 (19:01→20:32)
[2022-11-02] MEDS: ALBUTEROL SULFATE NEB 2.5 MG/3 ML INH 5 MG INHALATION ×2 (19:06→20:14)
[2022-11-02] MEDS: IPRATROPIUM BR 0.02% INH SOLN 0.5 MG/2.5 ML VIAL 1 MG INHALATION (19:07)
[2022-11-02 19:22] LABS: Influenza A QL RT-PCR Negative (Negative); Influenza B QL RT-PCR Negative (Negative); SARS-CoV-2 RNA PCR Negative
[2022-11-02] MEDS: NICOTINE (*PBKC) 14 MG PATCH 1 PATCH TRANSDERM (20:32)
--- NOTE | 2022-11-02 23:36 | PM.IMHP ---
H&P: HPI History of Present Illness Date/Time: 11/02/22 23:36 Chief Complaint: Shortness of breath Narrative: this is a 62-year-old female patient who has a history of COPD and tobacco abuse. 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 The patient stated that she could not get her air and she fell to the ground and was incontinent of urine. The patient stated that she still feels short of breath but denies any chest pain. The patient stated that she felt like her normal self earlier today. She has not attempted her albuterol inhaler. She went to urgent care facility and was sent he to the ER here due to an abnormal chest x-ray. Chest x-ray was read as the following1. Diffuse pulmonary opacities may represent bronchiolitis, as can be seen with atypical infection, asthma, aspiration, and small airways disease. 2. Left hilar masslike opacity may represent a pulmonary vessel viewed en face, hilar lymph node, or hilar mass. Recommend timely outpatient CT of the chest with contrast for further evaluation. CTA was read as the following1. No CT evidence of acute pulmonary embolus. 2. Large left hilar lung/nir mass with extensive involvement of mediastinal nir spaces, and narrowing of the traversing bronchi and pulmonary arteries, concerning for malignancy. Nodular scarring in the left upper lobe versus satellite or synchronous tumor. Possible osseous metastatic lesion at T3. 3. Emphysematous change and mild respiratory bronchiolitis the patient was given nebulizer treatment and Ativan in the emergency room. Oncology and pulmonology have been consulted. She was negative for influenza a and B and COVID as well. The patient is being admitted to observation status on the date of service of 11/02/2022. Review of Systems Review of Systems: See HPI All systems reviewed & are unremarkable except as noted in HPI and below Constitutional: Constitutional: Reports as per HPI and Reports no additional constitutional complaints Eyes: Eyes: Reports as per HPI and Reports no additional eye complaints ENT: Reports system reviewed and no additional complaints, except as documented and Reports Normal hearing present Cardiovascular: Cardiovascular: Reports no additional cardiovascular complaints Respiratory: Respiratory: Reports no additional respiratory complaints and Reports no additional respiratory complaints Gastrointestinal: Gastrointestinal: Reports as per HPI and Reports no additional gastrointestinal complaints Musculoskeletal: Musculoskeletal: Reports no additional musculoskeletal complaints Integumentary/Breasts: Skin/Breast: Reports system reviewed and no additional complaints, except as docu and Reports as per HPI Neurologic: Reports system reviewed and no additional complaints, except as documented, Reports as per HPI and Reports Normal hearing present Psychiatric: Psychiatric: Reports no additional psychiatric complaints and Reports as per HPI Endocrine: Endocrine: Reports no additional endocrine complaints Hematologic/Lymphatic: Hematologic/Lymphatic: Reports no additional hematologic/lymphatic complaints Allergic/Immunologic: Allergic/Immunologic: Reports no additional allergic/immunologic complaints PMFSH Past Medical History Medical History Alcohol use Anxiety Bloody diarrhea Cancer of left breast Status post bilateral mastectomy and chemoradiation. Depression Dyslipidemia Hypertension Lower abdominal pain Tobacco abuse Surgical History Surgical History History of bilateral mastectomy History of hysterectomy History of tonsillectomy Family History Family History Mother Diabetes mellitus Grandparent Diabetes mellitus Social Histor
--- NOTE | 2022-11-02 23:37 | ADMGEN ---
This patient, Shelby Mera, was admitted to [facility] Room 321-01. Patient/family oriented to hospital policies and general routines including ID bracelet, bed and alarms, visiting hours, pain management, procedures, bathroom and other care routines, personal items, smoking policy, room service/diet, and visiting hours. Information on how to activate the Rapid Response Team has been discussed. Patient/Family are encouraged to report perceived risks to care and to ask questions if they do not understand what they are told or what they should do.
[2022-11-03] VITALS (12 sets, daily range): BP systolic 103–126; BP diastolic 55–84; PULSE 98–112; RESP 16–20; TEMP 36.4–36.8; O2SAT 88–95
[2022-11-03] MEDS: METOPROLOL SUCCINATE EXT REL 25 MG TABCR PO (00:10)
[2022-11-03] MEDS: QUEtiapine FUMARATE 100 MG TABLET 300 MG PO (00:10)
[2022-11-03] MEDS: SIMVASTATIN 20 MG TABLET PO (00:11)
[2022-11-03] MEDS: LORazepam INJ (*CRX) 2 MG/ML VIAL 0.5 MG IV PUSH (00:17)
[2022-11-03 06:31] LABS: Basophils Absolute Auto 0.1 K/mm3 (0.0-0.1); Basophils Percent Auto 0.6 % (0.2-1.2); Eosinophils Absolute Auto 0.4 K/mm3 (0-0.3); Eosinophils Percent Auto 5.2 % (0-4.4); Hematocrit 34.2 % (37.0-47.0); Hemoglobin 11.2 g/dL (12.0-15.0); Immature Granulocyte Absolute 0.03 K/mm3 (0.00-0.031); Immature Granulocyte Percent A 0.4 % (0-0.5); Lymphocytes Absolute Auto 2.99 K/mm3 (0.9-3.2); Lymphocytes Percent Auto 35.9 % (18.3-44.2); Mean Corpuscular HGB Conc 32.7 g/dl (32-36); Mean Corpuscular Volume 100.9 fl (80-100); Monocytes Absolute Auto 0.6 K/mm3 (0.1-0.6); Neutrophils Absolute Auto 4.3 K/mm3 (1.3-6.7); Neutrophils Percent Auto 50.9 % (45.5-73.1); Platelet Count Result 248 k/mm3 (150-375); Red Blood Count 3.39 M/mm3 (4.2-5.4); Red Cell Distribution Width 13.7 % (11.5-14.5); White Blood Count 8.3 K/mm3 (4.5-10.0)
[2022-11-03 06:40] LABS: Alanine Aminotransferase 21 U/L (6-35); Alkaline Phosphatase 72 U/L (38-126); Anion Gap 5 mmol/L (8-16); Aspartate Amino Transferase 25 U/L (14-36); Bilirubin,Total 0.4 mg/dL (0.2-1.3); Blood Urea Nitrogen 15 mg/dL (7-17); Calcium 8.8 mg/dL (8.4-10.2); Carbon Dioxide 30 mmol/L (22-30); Chloride 100 mmol/L (98-107); Estimated CRCL calculation 107 ml/min; Estimated Glomerular Filt Rate > 60; Glucose 124 mg/dL (65-110); Magnesium 1.7 mg/dL (1.6-2.3); Potassium 3.4 mmol/L (3.4-5.0); Sodium 135 mmol/L (137-145)
--- NOTE | 2022-11-03 11:17 | PM.CNPUL ---
Assessment and Plan Assessment and plan (1) Lung mass: Code(s): R91.8 - Other nonspecific abnormal finding of lung field Status: Acute Assessment and Plan: this 62-year-old female with a history of smoking for many years, digital clubbing presented with shortness of breath. She was found to have a left lung mass which is highly suspicious for malignancy. Patient also has hypoxemia related to lung mass. Patient cannot be scoped as she has been on aspirin. Plan: I discussed the chest CT findings with the patient and the need for bronchoscopy as the left lung mass looks suspicious for malignancy. Patient can be discharged home today. she will need home oxygen evaluation she needs supplemental oxygen. Told the patient to stop taking aspirin. She will return to [facility] over the next few days to schedule her for outpatient bronchoscopy. Will sign off. Please call with any questions. (2) Alcohol use: Code(s): Z72.89 - Other problems related to lifestyle Status: Acute (3) Tobacco abuse: Code(s): Z72.0 - Tobacco use Status: Acute History of Present Illness History of Present Illness Consult date: 11/03/22 Chief complaint: New hilar mass Narrative: this 62-year-old female presented with shortness of breath. 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 Patient was evaluated in the emergency room was found to have a hypoxemia. Subsequent workup with chest CT showed large left hilar lung/nir mass with extensive involvement of mediastinal nir spaces, and narrowing of the traversing bronchi and pulmonary arteries, concerning for malignancy. Nodular scarring in the left upper lobe versus satellite or synchronous tumor. Possible osseous metastatic lesion at T3. Emphysematous change and mild respiratory bronchiolitis. the patient was admitted to the hospital and has been on just supplemental oxygen. Currently she has no new respiratory symptoms. Upon questioning she admitted having shortness of breath for at least 6 weeks. she has no weight loss chest pain fever chills or hemoptysis. She noticed digital clubbing approximately 2 years ago. patient has been a smoker of 1 pack per day for many years. Review of Systems Review of Systems: All systems reviewed & are unremarkable except as noted in HPI and below ( In HPI and below) [facility] Past Medical History Medical History Alcohol use Anxiety Bloody diarrhea Cancer of left breast Status post bilateral mastectomy and chemoradiation. 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 The patient has 4 children. The patient smokes at least a pack a cigarettes a day. Surrogate decision maker: Cyndee Cobos, daughter. Code status: Full code. Smoking packs per day: 1 Smoking cigarettes per day: 20.0 Years smoked: 45 Smoking pack-years: 45.00 Smoking status: Current every day smoker Tobacco type: cigarettes Second hand tobacco smoke exposure: No Alcohol intake: current Drinks per week: 10 Substance use: never Substance use type: does not use Lack of Transportation: No Lack of Food: Sometimes True Current Housing: I Have Housing Concerned About Future Housing: No Difficulty Paying Gas/Electric Bills: No Difficulty Paying for Meds: No Currently Unemployed: No Education: Trade/Vocational Certificate
--- NOTE | 2022-11-03 12:34 | PDONCCN ---
HPI - Date of Consult Date/Time: 11/03/22 12:34 Requesting Physician: Jr Strong MD Primary Care Provider: PHYSICIAN NOT ON STAFF - Consult Narrative Reason for consult: Likely lung cancer Narrative: Shelby Mera is a 62 year old female with history of smoking 1 pack per day for more toward 45 years along with history of left-sided breast cancer status post bilateral mastectomy done in 2003 then adjuvant radiation therapy and chemotherapy treatment. She came into the hospital status post fall at work when she got hypoxemic. She does have some shortness of breath without any hemoptysis and cough. Denies any weight loss. Patient had chest x-ray done in the ER that showed diffuse pulmonary opacities. CTA chest was performed that showed no evidence of pulmonary embolism but large left hilar mass with extensive involvement of mediastinal lymph nodes concerning for malignancy. There was also of possible metastatic lesion at T3. Patient has a history of fall in 1997 with back injury. She denies any other new complaints. Review of Systems - Review of Systems All systems reviewed & are unremarkable except as noted in HPI and bel - Neurologic Reports system reviewed and no additional complaints, except as documented, Reports hearing normal [facility] Medical History: Medical History (Last Reviewed 11/02/22 @ 23:39 by Haley Lewis NP) Alcohol use Anxiety Bloody diarrhea Cancer of left breast Status post bilateral mastectomy and chemoradiation. Depression Dyslipidemia Hypertension Lower abdominal pain Tobacco abuse Surgical History: Surgical History (Last Reviewed 11/02/22 @ 23:39 by Haley Lewis NP) History of bilateral mastectomy History of hysterectomy History of tonsillectomy Family History: Family History (Last Reviewed 11/02/22 @ 23:39 by Haley Lewis NP) Mother Diabetes mellitus Grandparent Diabetes mellitus - Social History Social History: Social History (Last Updated 11/02/22 @ 23:41 by Haley Lewis NP) Gender Identity: Gender identity (if verbalized by the patient): Female Sexual Orientation: Sexual Orientation (if Verbalized by the Patient): Straight or Heterosexual Alcohol Use: Alcohol intake: current Drinks per week: 10 Substance Use: Substance use: never Substance use type: does not use Others: Spiritual care concerns: No Smoking Status: Smoking status: Current every day smoker Tobacco type: cigarettes Second hand tobacco smoke exposure: No Smoking Pack-years: Smoking packs per day: 1 Smoking cigarettes per day: 20.0 Years smoked: 45 Smoking pack-years: 45.00 Social Determinants of Health: Has the Lack of Transportation Kept You From Medical Appointments or From Getting Medications?: No Within the Past 12 Months, Were You Worried Whether Your Food Would Run Out Before You Got Money to Buy More?: Sometimes True What is Your Housing Situation Today?: I Have Housing Are You Worried That in the Next 2 Months, You May Not Have Your Own Housing to Live In?: No Do You Have Trouble Paying Your Heating Or Electricity Bill?: No Do You Have Trouble Paying For Medicines?: No Are You Currently Unemployed and Looking for Work?: No Highest Level of Education Completed: Trade/Vocational Certific Do You Have Trouble With Childcare or the Care of a Family Member?: No Exam - Vital Signs Vital Signs - 24 hr 11/02/22 16:40 11/02/22 17:05 11/02/22 16:54 Temperature 36.8 C Pulse Rate 119 H 118 H Respiratory Rate 18 19 Blood Pressure 159/90 H Pulse Oximetry 92 93 92 Oxygen Delivery Room Air Room Air Oxygen Flow Rate Fraction of Inspired Oxygen 11/02/22 17:00 11/02/22 17:15 11/02/22 17:32 Temperature Pulse Rate 115 H 108 H 110 H Respiratory Rate 14 15 18 Blood Pressure Pulse Oximetry 94 92 90 Oxygen Delivery Oxygen Booker
--- NOTE | 2022-11-03 13:49 | PCRCNOTE ---
HOME O2 EVAL COMPLETE. PATIENT DOES NOT QUALIFY FOR HOME O2. RN NOTIFIED.
--- NOTE | 2022-11-03 14:04 | PM.DS ---
DS: Admitting Diagnosis Discharge Date 11/03/2022 1405 Admitting Diagnosis Left hilar lung mass Shortness of breath Chronic tobacco abuse Chronic hypertension DS: Discharge Diagnosis Discharge Diagnosis (1) Lung mass: Code(s): R91.8 - Other nonspecific abnormal finding of lung field Status: Acute Assessment and Plan: CTA chest showed no acute pulmonary embolism, however did show left large hilar lung mass with extensive involvement of mediastinal lymph nodes and narrowing of the transfers bronchi and pulmonary arteries concerning for malignancy. Nodular scarring in the left upper lobe versus satellite or synchronous tumor and possible osseous metastatic lesion at T3 also noted. Emphysematous change and mild respiratory bronchiolitis. Pulmonology and oncology consulted. Bronchoscopy deferred as patient has been taking baby aspirin with last dose on 11/01/22 primary prevention. Bronchoscopy to be scheduled outpatient. Patient to follow-up with oncology outpatient in 1-2 days to schedule PET scan. Continue albuterol HFA rescue inhaler as previously prescribed. (2) Tobacco abuse: Code(s): Z72.0 - Tobacco use Status: Chronic Assessment and Plan: Chronic, patient smokes approximately 1 pack per day with a 45 pack-year smoking history. She is currently planning to quit with scheduled quit date on November 10. She plans to use nicotine patches. She has previously tried Chantix and had severe dream disturbances. She also tried Wellbutrin in the past more than 20 years ago and had tachycardia. Patient was counseled to quit smoking we discussed pharmacological and nonpharmacological methods for quitting. (3) Depression with anxiety: Code(s): F41.8 - Other specified anxiety disorders Status: Chronic Assessment and Plan: Chronic, stable (4) Hypertension: Qualifiers: Hypertension type: primary hypertension Qualified Code(s): I10 - Essential (primary) hypertension Code(s): I10 - Essential (primary) hypertension Status: Chronic Assessment and Plan: Chronic, stable. continue metoprolol at home dose. (5) Dyslipidemia: Code(s): E78.5 - Hyperlipidemia, unspecified Status: Chronic Assessment and Plan: Chronic. Continue simvastatin. DS: Summary Hospital Course Reason for hospitalization: Shortness of breath Hospital Course: Shelby Mera is a 62 yo female with medical history significant for tobacco abuse, hypertension, breast cancer, depression and hyperlipidemia. She presented to the emergency department for evaluation of acute worsening of shortness of breath. Patient reports she has been progressively short of breath with exertion over the last several months. 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 She states she has been progressively becoming more short of breath with minimal activity. Initially it was caring multiple bags of groceries from her car into the house until this past week when she had difficulty even ambulating up stairs. She denied fever, chills, diaphoresis, sputum, chest pain, palpitations, abdominal pain, nausea, vomiting or hemoptysis. She has a chronic cough that is unchanged. In the emergency department she was noted to be hypoxic with SpO2 88-89% on room air that improved to 95% on 2 L nasal cannula. All other vitals were stable. CTA chest was obtained her concerns for PE given acute shortness of breath, tachycardia, and hypoxia. No PE was noted however large left hilar lung mass with mediastinal lymph node involvement was noted, as described above. Patient had unremarkable CBC and CMP. EKG showed sinus tach with incomplete right bundle-branch block that is unchanged from previous. Patient was admitted to the medical floor for further evaluation of hypoxia and lung mass. Pulmonology and Oncology were cons
== END 2022-11-03 15:00 | disposition home or self-care (01) ==
LOC: ANHED 19:55 → ANH3MEDSUR 22:08
PROVIDERS: Nurse Practitioner; Physician Assistant; Admitting Provider Internal Medicine; Emergency Provider Emergency Medicine; Visit Provider Student in an Organized Health Care Education/Training Program
DX: R91.8 Other nonspecific abnormal finding of lung field (principal); F17.210 Nicotine dependence, cigarettes, uncomplicated; I10 Essential (primary) hypertension; E78.5 Hyperlipidemia, unspecified; J44.9 Chronic obstructive pulmonary disease, unspecified; R00.0 Tachycardia, unspecified; R09.02 Hypoxemia; W19.XXXA Unspecified fall, initial encounter; Z20.822 Contact with and (suspected) exposure to COVID-19; I45.10 Unspecified right bundle-branch block; R94.31 Abnormal electrocardiogram [ECG] [EKG]; F41.9 Anxiety disorder, unspecified; F32.A Depression, unspecified; Z85.3 Personal history of malignant neoplasm of breast; Z98.890 Other specified postprocedural states; Z90.710 Acquired absence of both cervix and uterus; Z90.13 Acquired absence of bilateral breasts and nipples; Z79.51 Long term (current) use of inhaled steroids; Z79.899 Other long term (current) drug therapy
CPT/HCPCS: 36415; 71275; 80053; 83735; 83880; 84443; 84484; 85025; 85610; 85730; 87636; 93005; 94618; 94640; 96374; 99285; A9270; G0378; J2060; Q9967

== ENCOUNTER 2022-11-10 12:07 | Outpatient (CLI) | payer BC, SELFPAY ==
[2022-11-10 13:27] LABS: Prothrombin Time 12.6 Seconds (11.1-14.7)
== END 2022-11-10 12:08 | disposition home or self-care (01) ==
LOC: ANHLAB 12:09
PROVIDERS: PCP Physician Assistant; Visit Provider Internal Medicine Pulmonary Disease
DX: R91.8 Other nonspecific abnormal finding of lung field (principal)
CPT/HCPCS: 36415; 85610

== ENCOUNTER 2022-11-11 15:17 | Emergency (ER) | payer BC, MEDICAID, SELFPAY ==
[2022-11-11] VITALS (13 sets, daily range): BP systolic 119–157; BP diastolic 75–107; PULSE 110–126; RESP 17–31; TEMP 37.4; O2SAT 92–100
--- NOTE | ~2022-11-11 | XR_ITS ---
EXAMINATION: XR chest 1V portable DATE: 11/11/2022 15:50 INDICATION: Shortness of breath. Breast cancer. TECHNIQUE: frontal view of the chest was obtained. COMPARISON: Chest CT and radiograph dated 11/02/2022 FINDINGS: Unchanged mild elevation of left hemidiaphragm. Subtle asymmetric increased opacity right lower lung zone likely artifact of overlying breast implant. Persistent small region of reticulonodular opacitie s at the lateral left midlung zone concerning for pneumonia. Pulmonary vascular congestion and subtle increased interstitial pattern in the bilateral lower lung zones which could be seen with mild pulmo nary edema. No new airspace opacities, pleural effusion or pneumothorax. Left hilar enlargement whic h on prior CT appears to represent a confluent nir mass suspicious for metastatic disease. Heart si ze is normal. Visualized bones and soft tissues are unremarkable. IMPRESSION: 1. Pulmonary vascular congestion and mild increased interstitial pattern in the bilateral lower lung zones suspicious for mild pulmonary edema. 2. Persistent small region of reticulonodular opacities at the lateral left midlung zone suspicious f or pneumonia. 3. Left hilar lymphadenopathy suspicious for metastatic disease. Reviewed, dictated and finalized at location A. SPRING MAKER IMPRESSION: 1. Pulmonary vascular congestion and mild increased interstitial pattern in the bilateral lower lung zones suspicious for mild pulmonary edema. 2. Persistent small region of reticulonodular opacities at the lateral left mid lung zone suspicious for pneumonia. 3. Left hilar lymphadenopathy suspicious for metastatic disease.
--- NOTE | ~2022-11-11 | CT_ITS ---
EXAMINATION: CTA chest PE protocol DATE: 11/11/2022 17:34 INDICATION: Shortness of breath and cough. TECHNIQUE: Computed tomography angiography (CTA) of the chest was performed with 100 mL Omnipaque-350 intravenous contrast timed to evaluate the pulmonary arteries. Coronal maximum intensity projection 3D-reconstructions were created by the technologist. Automated exposure control and iterative reconst ruction technique were employed. The dose-length product was 252.99 mGy-cm. COMPARISON: Chest CT 11/02/2022 FINDINGS: There is mild emphysema. There is mild radiation fibrosis in anterolateral left upper lobe. There is mild atelectasis bilaterally. There are a few nodules in left upper lobe and superior segme nt left lower lobe measuring up to 11 mm. Calcified left lung nodules and calcified left hilar lymph nodes are consistent with old granulomatous disease. No pleural effusion. Left thyroid lobe is small . There is left hilar and mediastinal lymphadenopathy, much of which is confluent. There is mass effe ct on the left pulmonary arteries. There is no pulmonary embolus. There is a right breast implant. Th e heart size is normal. There are coronary artery calcifications. No pericardial effusion. Calcificat ions in the spleen are consistent with old granulomatous disease. There is moderate thoracic spondylo sis. There is chronic height loss of T3, T6, T9, and T11 vertebral bodies. IMPRESSION: 1. No pulmonary embolus. 2. Left lung nodules and extensive hilar and mediastinal lymphadenopathy, consistent with metastatic disease. Bronchoscopy is recommended. 3. Mild emphysema. Reviewed, dictated and finalized at location A. O COUNTER MOLDER IMPRESSION: 1. No pulmonary embolus. 2. Left lung nodules and extensive hilar and mediastinal lymphadenopathy, consi stent with metastatic disease. Bronchoscopy is recommended. 3. Mild emphysema.
--- NOTE | 2022-11-11 15:33 | ECG_ITS ---
Measurements Intervals Rudolph Rate: 125 P: 57 NJ: 160 QRS: 52 QRSD: 86 T: 51 QT: 308 QTc: 445 Interpretive Statements SINUS TACHYCARDIA POSSIBLE RIGHT VENTRICULAR CONDUCTION DELAY [RSR (QR) IN V1/V2] ABNORMAL RHYTHM ECG COMPARED TO ECG 11/02/2022 16:48:51 HEART RATE IS ACCELERATED Electronically Signed On 11-12-2022 14:34:00 [employer]ACLE APPLICATION CONSULTANT by Nav Arias M.D.
[2022-11-11 15:44] LABS: Basophils Absolute Auto 0.1 K/mm3 (0.0-0.1); Basophils Percent Auto 0.6 % (0.2-1.2); Eosinophils Absolute Auto 0.2 K/mm3 (0-0.3); Eosinophils Percent Auto 2.3 % (0-4.4); Hematocrit 43.2 % (37.0-47.0); Hemoglobin 14.3 g/dL (12.0-15.0); Immature Granulocyte Absolute 0.01 K/mm3 (0.00-0.031); Immature Granulocyte Percent A 0.1 % (0-0.5); Lymphocytes Absolute Auto 3.04 K/mm3 (0.9-3.2); Lymphocytes Percent Auto 36.1 % (18.3-44.2); Mean Corpuscular HGB Conc 33.1 g/dl (32-36); Mean Corpuscular Hemoglobin 33.1 pg (26-34); Mean Platelet Volume 9.9 fl (7.4-10.4); Monocytes Absolute Auto 0.5 K/mm3 (0.1-0.6); Monocytes Percent Auto 6.4 % (2.6-8.5); Neutrophils Absolute Auto 4.6 K/mm3 (1.3-6.7); Neutrophils Percent Auto 54.5 % (45.5-73.1); Platelet Count Result 348 k/mm3 (150-375); Red Blood Count 4.32 M/mm3 (4.2-5.4); Red Cell Distribution Width 13.2 % (11.5-14.5); White Blood Count 8.4 K/mm3 (4.5-10.0)
[2022-11-11 15:54] LABS: Partial Thromboplastin Time 27.5 SECONDS (22.3-36.8); Prothrombin Time 12.6 Seconds (11.1-14.7)
[2022-11-11 15:59] LABS: Alanine Aminotransferase 27 U/L (6-35); Albumin Level 4.9 g/dL (3.5-5.1); Alkaline Phosphatase 106 U/L (38-126); Anion Gap 10 mmol/L (8-16); Aspartate Amino Transferase 30 U/L (14-36); Bilirubin,Total 0.7 mg/dL (0.2-1.3); Blood Urea Nitrogen 11 mg/dL (7-17); Calcium 9.8 mg/dL (8.4-10.2); Carbon Dioxide 26 mmol/L (22-30); Chloride 98 mmol/L (98-107); Estimated CRCL calculation 100 ml/min; Estimated Glomerular Filt Rate > 60; Glucose 107 mg/dL (65-110); Potassium 3.5 mmol/L (3.4-5.0); Sodium 134 mmol/L (137-145)
[2022-11-11 16:10] LABS: Troponin I < 0.012 ng/mL (0.000-0.034)
[2022-11-11] MEDS: IPRATROPIUM BR 0.02% INH SOLN 0.5 MG/2.5 ML VIAL 1.5 MG INHALATION (16:18)
[2022-11-11 16:27] LABS: Alveolar/Arterial O2 Gradient 57.2 mmHg; Base Excess ABG 3.9 mEq/l (+/-2.0); Carboxyhemoglobin 3.8 % THb (0-2.0); Fractional Inspired Oxygen 21 %; HCO3 ABG 26.2 mEq/l (22.0-26.0); Methemoglobin ABG 0.2 %THb (0-1.5); Oxygen Content ABG 18.1 %vol (16.0-22.0); Oxygen Saturation ABG 91.2 % (95.0-100.0); PCO2 ABG 32.7 mmHg (35.0-45.0); PO2 ABG 53.4 mmHg (80.0-100.0); PO2 FiO2 Ratio Arterial Blood 2.54 %; Reduced Hemoglobin 9.3 %THb (0-5.0); Total Hemoglobin 14.9 g/dL (12.0-18.0)
[2022-11-11 16:28] LABS: pH ABG 7.522 (7.350-7.450)
[2022-11-11 16:29] LABS: Modified Allen's Test Pass; Oxyhemoglobin 86.7 % THb (90.0-100.0); Site Drawn LEFT RADIAL
[2022-11-11] MEDS: LORazepam INJ (*CRX) 2 MG/ML VIAL 0.5 MG IV PUSH (16:50)
[2022-11-11] MEDS: SODIUM CHLORIDE 0.9% IV 1,000 ML 999 ML IV CONT (18:03)
--- NOTE | 2022-11-11 18:04 | ED.SOB ---
HPI - SOB/Dyspnea General Chief Complaint: Shortness of Breath/Dyspnea Stated Complaint: diff breathing Time Seen by Provider: 11/11/22 15:21 History of Present Illness HPI Narrative: Patient is a 62-year-old female who presents ER with shortness of breath. Progressively worsening throughout the day. Has known lung mass that is being worked up by pulmonology. History of smoking. No fevers chills or sweats. Has occasional cough that is nonproductive. Has tried her inhaler at home without improvement. No lower extremity swelling or cramping. No history of PE. She is not anticoagulated. She has recently stopped taking aspirin so she can have a biopsy. Related Data Home Medications Medication Instructions Recorded Confirmed metoprolol succinate 25 mg 25 mg PO HS 02/05/21 11/11/22 tablet,extended release 24 hr quetiapine 300 mg tablet 300 mg PO HS 02/05/21 11/11/22 simvastatin 20 mg tablet 20 mg PO HS 02/05/21 11/11/22 Allergies Allergy/AdvReac Type Severity Reaction Status Date / Time Sulfa (Sulfonamide Allergy Severe Difficulty Verified 11/11/22 15:22 Antibiotics) Breathing Review of Systems Review of Systems: All systems reviewed & are unremarkable except as noted in HPI and below Constitutional: Constitutional: Denies chills, Denies fatigue and Denies fever(s) ENT: Denies nasal congestion and Denies sore throat Cardiovascular: Cardiovascular: Denies chest pain, Reports rapid heart rate (Chronically elevated) and Denies radiating jaw, neck or arm pain Respiratory: Respiratory: Reports cough, Reports dyspnea and Reports wheezing Gastrointestinal: Gastrointestinal: Denies abdominal pain, Denies nausea and Denies vomiting Psychiatric: Psychiatric: Reports anxiety PMFSH Past Medical History Medical History Alcohol use Anxiety Bloody diarrhea Cancer of left breast Status post bilateral mastectomy and chemoradiation. 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 The patient has 4 children. The patient smokes at least a pack a cigarettes a day. Surrogate decision maker: Cyndee Cobos, daughter. Code status: Full code. Smoking packs per day: 1 Smoking cigarettes per day: 20.0 Years smoked: 45 Smoking pack-years: 45.00 Smoking status: Current every day smoker Tobacco type: cigarettes Second hand tobacco smoke exposure: No Additional smoking assessment comments: WEARING PATCH TRYING TO QUIT Alcohol intake: current Drinks per week: 14 Alcohol use details: GLASSES WINE Substance use: never Substance use type: does not use Lack of Transportation: No Lack of Food: Sometimes True Current Housing: I Have Housing Concerned About Future Housing: No Difficulty Paying Gas/Electric Bills: No Difficulty Paying for Meds: No Currently Unemployed: No Education: Trade/Vocational Certificate Difficulty w/ Childcare or Family Care: No Living arrangements: with family Additional living arrangements comments: The patient lives in [place]. 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 Gender identity (if verbalized by the patient): Female Sexual Orientation (if Verbalized by the Patient): Straight or Heterosexual Spiritual care concerns: No Exam Narrative: GENERAL: Anxious-appearing, well-nourished, and in no acute distress. HEAD: Normocephalic, atraumat
== END 2022-11-11 18:58 | disposition home or self-care (01) ==
PROVIDERS: Emergency Provider Emergency Medicine; PCP Physician Assistant
DX: F41.9 Anxiety disorder, unspecified (principal); J40 Bronchitis, not specified as acute or chronic; R91.8 Other nonspecific abnormal finding of lung field; E78.5 Hyperlipidemia, unspecified; I10 Essential (primary) hypertension; F32.A Depression, unspecified; F17.210 Nicotine dependence, cigarettes, uncomplicated; Z90.13 Acquired absence of bilateral breasts and nipples; Z90.710 Acquired absence of both cervix and uterus; Z85.3 Personal history of malignant neoplasm of breast; Z92.3 Personal history of irradiation; Z92.21 Personal history of antineoplastic chemotherapy; J43.9 Emphysema, unspecified; R00.0 Tachycardia, unspecified; R94.31 Abnormal electrocardiogram [ECG] [EKG]; R09.89 Other specified symptoms and signs involving the circulatory and respiratory systems
CPT/HCPCS: 36415; 36600; 71045; 71275; 80053; 82375; 82805; 83050; 84484; 85025; 85610; 85730; 93005; 94640; 96361; 96374; 99284; J2060; J7030; Q9967

== ENCOUNTER 2022-11-18 02:12 | Day surgery (SDC) | payer BC, MEDICAID, SELFPAY ==
[2022-11-11 09:25] VITALS: BMI 26.7
[2022-11-18] VITALS (7 sets, daily range): BP systolic 121–139; BP diastolic 78–97; PULSE 107–114; RESP 20–24; TEMP 36.3–36.4; O2SAT 93–95
--- NOTE | ~2022-11-18 | XR_ITS ---
EXAMINATION: XR chest 2V DATE: 11/18/2022 11:32 INDICATION: Lung mass TECHNIQUE: Frontal and lateral views of the chest are obtained COMPARISON: 11/11/2022 FINDINGS: There are minimal airspace opacities of the left lung base. No pleural effusion or pneumoth orax. The heart size is normal. There is fullness of the left hilum, consistent with known hilar lymp hadenopathy. The heart size is normal. There is moderate thoracic spondylosis. Chronic height loss is noted in multiple thoracic vertebral bodies. IMPRESSION: 1. Minimal left basilar airspace opacity, consistent with atelectasis. 2. Fullness of the left hilum, consistent with known hilar lymphadenopathy. Reviewed, dictated and finalized at location L. ATORY GAME HUNTER
--- NOTE | ~2022-11-18 | XR_ITS ---
EXAMINATION: XR chest 1V portable DATE: 11/18/2022 15:13 INDICATION: Post bronchoscopy TECHNIQUE: frontal view of the chest was obtained. COMPARISON: Chest radiograph dated 11/18/2022 at 11:28 AM FINDINGS: Increasing elevation of the left hemidiaphragm with corresponding increasing streaky atelectasis in t he left lower lung zone. Unchanged region of reticulonodular opacity lateral left midlung zone concer gia for pneumonia or malignancy. No pleural effusion or pneumothorax. Heart size is normal. Left hil ar enlargement suspicious for metastatic disease. Left breast implant and surgical clips consistent w ith bilateral axillary lymph node dissections. IMPRESSION: 1. Increasing streaky opacity left lung base with increasing elevation of the left hemidiaphragm whic h favors atelectasis over pneumonia. No pneumothorax. 2. Unchanged small region of reticulonodular opacities in the lateral left midlung zone which could r epresent malignancy or pneumonia. 3. Left hilar enlargement suspicious for metastatic disease. Reviewed, dictated and finalized at location A. OUT WORKER IMPRESSION: 1. Increasing streaky opacity left lung base with increasing elevation of the l eft hemidiaphragm which favors atelectasis over pneumonia. No pneumothorax. 2. Unchanged small region of reticulonodular opacities in the lateral left midl fer zone which could represent malignancy or pneumonia. 3. Left hilar enlargement suspicious for metastatic disease.
[2022-11-18] MEDS: LACTATED RINGERS 1,000 ML 150 ML IV CONT (11:53)
--- NOTE | 2022-11-18 14:01 | WPDANESEPPF ---
Anes - Initial Pre Proc Eval Procedure: Operation Date: 11/18/22 13:00 Proposed Procedures p Flexible Bronchoscopy - William Ott MD Date/Time: 11/18/22 14:01 Surgeon: William Ott MD Pre Op Diagnosis: Left Lung Mass Patient Data Age: 62 Gender: F Height: 1.65 m Weight: 72.8 kg Last Vital Signs Temp 36.3 C L 11/18/22 11:42 Pulse 114 H 11/18/22 11:42 Resp 20 11/18/22 11:42 BP 125/78 11/18/22 11:42 Pulse Ox 94 11/18/22 11:42 O2 Del Method Room Air 11/18/22 11:42 Allergies Allergy/AdvReac Type Severity Reaction Status Date / Time Sulfa (Sulfonamide Allergy Severe Difficulty Verified 11/18/22 11:41 Antibiotics) Breathing Home Medications Medication Instructions Recorded Confirmed Type metoprolol succinate 25 mg 25 mg PO HS 02/05/21 11/11/22 History tablet,extended release 24 hr quetiapine 300 mg tablet 300 mg PO HS 02/05/21 11/11/22 History simvastatin 20 mg tablet 20 mg PO HS 02/05/21 11/11/22 History albuterol sulfate 90 mcg/actuation 2 puff inhalation Q6HRT PRN 02/07/21 11/11/22 Rx aerosol inhaler (Proventil HFA) Shortness Of Breath #1 g albuterol sulfate 90 mcg/actuation 2 puff inhalation QID PRN 11/11/22 Rx aerosol inhaler shortness of breath or wheezing #8 grams lorazepam 0.5 mg tablet (Ativan) 0.5 mg PO TID PRN anxiety #14 tabs 11/11/22 Rx prednisone 20 mg tablet 40 mg PO DAILY 6 days #12 tabs 11/11/22 Rx Patient hx anesthesia problems: none Family hx anesthesia problems: none Results Review: All pre-operative results and documents have been reviewed as part of the pre-operative evaluation. [facility] Past Medical History Medical History Alcohol use Anxiety Bloody diarrhea Cancer of left breast Status post bilateral mastectomy and chemoradiation. 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 The patient has 4 children. The patient smokes at least a pack a cigarettes a day. Surrogate decision maker: Cyndee Cobos, daughter. Code status: Full code. Smoking packs per day: 1 Smoking cigarettes per day: 20.0 Years smoked: 45 Smoking pack-years: 45.00 Smoking status: Current every day smoker Tobacco type: cigarettes Second hand tobacco smoke exposure: No Additional smoking assessment comments: WEARING PATCH TRYING TO QUIT Alcohol intake: current Drinks per week: 14 Alcohol use details: GLASSES WINE Substance use: never Substance use type: does not use Lack of Transportation: No Lack of Food: Sometimes True Current Housing: I Have Housing Concerned About Future Housing: No Difficulty Paying Gas/Electric Bills: No Difficulty Paying for Meds: No Currently Unemployed: No Education: Trade/Vocational Certificate Difficulty w/ Childcare or Family Care: No Living arrangements: with family Additional living arrangements comments: The patient lives in [place]. 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 Gender identity (if verbalized by the patient): Female Sexual Orientation (if Verbalized by the Patient): Straight or Heterosexual Spiritual care concerns: No Anes - Eval Final PreProcedure Day of Procedure 11/18/22 14:01 Patient weight: overweight Heart: regular rate and rhythm Lungs: decreased breath sounds and wheezes Airway: Mallampati scale class II Neurological: alert and
--- NOTE | 2022-11-18 14:02 | WPDHPUPDATE1 ---
History and Physical Update Update Date/Time: 11/18/22 14:02 History and Physical has been reviewed, including an updated exam of the patient. There are NO changes in the patient's condition. Risks, benefits, and alternatives have been discussed and questions answered. Patient agrees to proceed with procedure.
[2022-11-18] MEDS: SODIUM CHLORIDE 0.9% IV 500 ML BAG 30 ML IRRIGATION (14:52)
[2022-11-18] MEDS: LIDOCAINE HCL 2% LOCAL INJ 20 ML VIAL INFILTRATE (14:54)
--- NOTE | 2022-11-18 15:06 | SUR.OPER ---
30cc NS 2cc 2% Lidocaine
== END 2022-11-18 15:55 | disposition home or self-care (01) ==
PROVIDERS: PCP Physician Assistant; Visit Provider Internal Medicine Pulmonary Disease
PROC: 0BJ08ZZ Inspection of Tracheobronchial Tree, Via Natural or Artificial Opening Endoscopic (ICD-10-PCS; CPT 31622; principal; 2022-11-18 13:00)
DX: C34.12 Malignant neoplasm of upper lobe, left bronchus or lung (principal); I10 Essential (primary) hypertension; E78.5 Hyperlipidemia, unspecified; F41.9 Anxiety disorder, unspecified; F32.A Depression, unspecified; Z79.51 Long term (current) use of inhaled steroids; Z85.3 Personal history of malignant neoplasm of breast; Z92.21 Personal history of antineoplastic chemotherapy; Z92.3 Personal history of irradiation; F17.210 Nicotine dependence, cigarettes, uncomplicated
CPT/HCPCS: 31629; 71045; 71046; 87070; 87102; 87205; 87206; 88108; 88160; 88305; 88342; J2250; J2704; J7040; J7120

== ENCOUNTER 2022-12-01 12:47 | Emergency (ER) | payer BC, MEDICAID, SELFPAY ==
[2022-12-01] VITALS (7 sets, daily range): BP systolic 102–111; BP diastolic 62–79; PULSE 111–117; RESP 16–21; TEMP 37–37.1; O2SAT 93–94
--- NOTE | ~2022-12-01 | XR_ITS ---
Clinical Indication: Hypoxia PA and lateral views of the chest: Comparison: 11/18/2022 Findings: Probable mild central pulmonary edema pattern present. No pleural effusion. Cardiomediasti nal silhouette is within normal limits. Bones and soft tissues are unremarkable. Impression: Probable mild pulmonary edema pattern. Reviewed, dictated and finalized at [facility]. NSE CLERK Impression: Probable mild pulmonary edema pattern.
--- NOTE | ~2022-12-01 | CT_ITS ---
EXAMINATION: CTA chest PE protocol DATE: 12/01/2022 17:57 INDICATION: dyspnea, hx of lung cancer TECHNIQUE: Computed tomography angiography (CTA) of the chest was performed with 100 mL Omnipaque-350 intravenous contrast timed to evaluate the pulmonary arteries. Coronal maximum intensity projection 3D-reconstructions were created by the technologist. The dose-length product (DLP) was 274.21 mGy-cm. Automated exposure control and iterative reconstruction technique were employed. COMPARISON: 11/11/2022. FINDINGS: Lung parenchyma and airways: Multiple pulmonary nodules, similar to the prior study. Fibrotic, possib ly postradiation change in the left upper lobe. Postobstructive collapse in the left lower lobe. Emph ysematous change. Pleura: Unremarkable. Thoracic inlet, axillae and chest wall: Right breast implant. Thoracic aorta: Mild arch calcification. Mediastinum: Left hilar mass/confluent lymphadenopathy causing narrowing of the traversing pulmonary arteries and bronchi, similar to the prior study. Mediastinal lymphadenopathy, similar to the prior s tudy. Heart and pericardium: Trace pericardial fluid. Mitral and aortic valve calcification. Coronary artery calcifications: Mild. Upper abdomen: No significant finding. Bones: No acute osseous finding. Pulmonary arteries: Study quality: Adequate. No pulmonary emboli detected. IMPRESSION: No CT evidence of acute pulmonary embolus. Chronic and incidental findings detailed above. Reviewed, dictated and finalized at location K. E PROCESS ADMINISTRATOR IMPRESSION: No CT evidence of acute pulmonary embolus. Chronic and incidental findings deta iled above.
--- NOTE | ~2022-12-01 | CT_ITS ---
EXAMINATION: CT brain wo con DATE: 12/01/2022 17:52 INDICATION: lung cancer, fever . TECHNIQUE: Computed tomography (CT) of the head was performed without intravenous contrast. The mA wa s adjusted according to patient size. Iterative reconstruction technique was employed. The dose-lengt h product was 605.33 mGy-cm. COMPARISON: None. FINDINGS: No acute intracranial hemorrhage or extra-axial fluid collection. No hydrocephalus, mass, or herniation. No acute ischemic infarct. Unremarkable dural venous sinus attenuation. No acute osseous abnormality. The aerated spaces are clear. Mild atrophy and moderate chronic white matter change. Atherosclerotic intracranial calcification. IMPRESSION: No acute intracranial process. Reviewed, dictated and finalized at location K. RT PROGRAMMER
[2022-12-01 14:54] LABS: Basophils Absolute Auto 0.1 K/mm3 (0.0-0.1); Basophils Percent Auto 0.6 % (0.2-1.2); Eosinophils Absolute Auto 0.3 K/mm3 (0-0.3); Eosinophils Percent Auto 3.1 % (0-4.4); Hematocrit 38.4 % (37.0-47.0); Immature Granulocyte Absolute 0.02 K/mm3 (0.00-0.031); Immature Granulocyte Percent A 0.2 % (0-0.5); Lymphocytes Absolute Auto 1.97 K/mm3 (0.9-3.2); Lymphocytes Percent Auto 22.4 % (18.3-44.2); Mean Corpuscular HGB Conc 33.9 g/dl (32-36); Mean Corpuscular Hemoglobin 33.9 pg (26-34); Mean Corpuscular Volume 100.3 fl (80-100); Monocytes Absolute Auto 0.6 K/mm3 (0.1-0.6); Monocytes Percent Auto 6.8 % (2.6-8.5); Neutrophils Absolute Auto 5.9 K/mm3 (1.3-6.7); Neutrophils Percent Auto 66.9 % (45.5-73.1); Platelet Count Result 301 k/mm3 (150-375); Red Blood Count 3.83 M/mm3 (4.2-5.4); Red Cell Distribution Width 13.2 % (11.5-14.5); White Blood Count 8.8 K/mm3 (4.5-10.0)
[2022-12-01 15:06] LABS: Alanine Aminotransferase 25 U/L (6-35); Albumin Level 4.4 g/dL (3.5-5.1); Alkaline Phosphatase 80 U/L (38-126); Anion Gap 5 mmol/L (8-16); Aspartate Amino Transferase 22 U/L (14-36); Bilirubin,Total 0.4 mg/dL (0.2-1.3); Blood Urea Nitrogen 15 mg/dL (7-17); Calcium 9.4 mg/dL (8.4-10.2); Carbon Dioxide 31 mmol/L (22-30); Chloride 94 mmol/L (98-107); Estimated CRCL calculation 65 ml/min; Estimated Glomerular Filt Rate > 60; Glucose 94 mg/dL (65-110); Potassium 4.2 mmol/L (3.4-5.0); Sodium 130 mmol/L (137-145)
--- NOTE | 2022-12-01 15:25 | ED.FEVER ---
HPI - Fever General Chief Complaint: Fever Stated Complaint: FEVER Time Seen by Provider: 12/01/22 15:25 Source: patient Mode of arrival: ambulatory Limitations: no limitations History of Present Illness HPI Narrative: Patient is a 62-year-old female with a history of breast cancer status postmastectomy, hypertension, hyperlipidemia, left lung mass, lung cancer, presenting to the emergency department for evaluation of fever, cough, shortness of breath. Patient reports fever, night sweats of 104 Fahrenheit over the past 5 days. Patient reports generalized myalgias and fatigue. She denies any significant congestion, rhinorrhea, sore throat. She reports mild cough without hemoptysis. Patient states that she was seen by a tenter frame back tender and given a trilogy inhaler which has greatly been helping the patient's dyspnea. She denies any rashes. She denies abdominal pain. No dysuria or hematuria. Patient denies leg swelling or calf pain. She is not taking any antibiotics currently. Patient has follow-up scheduled with oncologist Dr. Cottrell next week. Patient not currently on chemotherapy regimen. History obtained by speaking directly with the patient as well as chart review from recent admission, outpatient pulmonology follow-up note reviewed. Pt is not currently smoking cigarettes. Related Data Home Medications Medication Instructions Recorded Confirmed metoprolol succinate 25 mg 25 mg PO HS 02/05/21 11/11/22 tablet,extended release 24 hr quetiapine 300 mg tablet 300 mg PO HS 02/05/21 11/11/22 simvastatin 20 mg tablet 20 mg PO HS 02/05/21 11/11/22 Allergies Allergy/AdvReac Type Severity Reaction Status Date / Time Sulfa (Sulfonamide Allergy Severe Difficulty Verified 11/18/22 11:41 Antibiotics) Breathing Review of Systems Review of Systems: CONSTITUTIONAL: Reports fever, chills, night sweats EYES: Denies visual changes, redness, or discharge. ENT: Denies rhinorrhea, congestion, sore throat, or otalgia. CARDIOVASCULAR: Denies chest pain, palpitations, or edema. RESPIRATORY: Reports cough, wheezing, shortness of breath GASTROINTESTINAL: Denies abdominal pain, nausea, vomiting, or diarrhea. GENITOURINARY: Denies dysuria or hematuria. SKIN: Denies rash or itching. MUSCULOSKELETAL: Denies back pain, joint pain, reports myalgias NEUROLOGIC: Denies headache, numbness, or weakness. PMFSH Past Medical History Medical History Alcohol use Anxiety Bloody diarrhea Cancer of left breast Status post bilateral mastectomy and chemoradiation. 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 The patient has 4 children. The patient smokes at least a pack a cigarettes a day. Surrogate decision maker: Cyndee Cobos, daughter. Code status: Full code. Smoking packs per day: 1 Smoking cigarettes per day: 20.0 Years smoked: 45 Smoking pack-years: 45.00 Smoking status: Current every day smoker Tobacco type: cigarettes Second hand tobacco smoke exposure: No Additional smoking assessment comments: WEARING PATCH TRYING TO QUIT Alcohol intake: current Drinks per week: 14 Alcohol use details: GLASSES WINE Substance use: never Substance use type: does not use Lack of Transportation: No Lack of Food: Sometimes True Current Housing: I Have Housing Concerned About Future Housing: No Difficulty Paying Gas/Electric Bills: No Difficulty Paying
[2022-12-01 16:17] LABS: NT Pro B Type Natriuretic Pept 64 pg/mL (19.9-100)
[2022-12-01] MEDS: ACETAMINOPHEN 500 MG TABLET 1000 MG PO (16:42)
[2022-12-01] MEDS: methylPREDNISolone SOD SUCC 125 MG VIAL IV PUSH (16:42)
[2022-12-01] MEDS: IPRATROPIUM BR 0.02% INH SOLN 0.5 MG/2.5 ML VIAL INHALATION (16:45)
[2022-12-01] MEDS: ALBUTEROL SULFATE NEB 2.5 MG/3 ML INH 5 MG INHALATION (16:45)
[2022-12-01 17:02] LABS: Troponin I < 0.012 ng/mL (0.000-0.034)
[2022-12-01 17:29] LABS: Lactic Acid Reflex 1.1 mmol/L (0.7-2.0)
[2022-12-01 18:01] LABS: Thyroid Stimulating Hormone Reflex 0.855 uIU/mL (0.465-4.68)
[2022-12-01 19:26] LABS: Appearance Urine Clear (Clear); Bilirubin Urine Negative (Negative); Blood Urine Negative (Negative); Color Urine Yellow (Yellow); Glucose Urine UA Negative (Negative); Ketones Urine Trace mg/dL (Negative); Leukocyte Esterase Ur Negative LEU/UL (Negative); Nitrate Urine Negative (Negative); Protein Urine Negative (Negative); Urobilinogen Urine 0.2 mg/dL (<2.0)
[2022-12-01 19:32] LABS: Mucus Urine Rare /lpf; Squamous Epithelial Cell Urine Many /hpf (Few); WBC Urine 0-3 /hpf
[2022-12-01 19:37] LABS: Add Urine Microscopic? YES
== END 2022-12-01 19:07 | disposition home or self-care (01) ==
PROVIDERS: Emergency Provider Emergency Medicine; PCP Physician Assistant
DX: R50.9 Fever, unspecified (principal); J98.19 Other pulmonary collapse; F17.210 Nicotine dependence, cigarettes, uncomplicated; F41.9 Anxiety disorder, unspecified; F32.9 Major depressive disorder, single episode, unspecified; I10 Essential (primary) hypertension
CPT/HCPCS: 36415; 70450; 71046; 71275; 80053; 81001; 83605; 83880; 84443; 84484; 85025; 87040; 94640; 96374; 99284; A9270; J2930; Q9967

== ENCOUNTER 2022-12-03 13:31 | Outpatient (CLI) | payer BC, MEDICAID, SELFPAY ==
--- NOTE | ~2022-12-03 | CT_ITS ---
EXAMINATION: CT brain w con DATE: 12/03/2022 14:08 INDICATION: Small cell lung cancer TECHNIQUE: Computed tomography (CT) of the head was performed with 100 cc Omnipaque 350 intravenous c ontrast. The dose-length product was 605 mGy-cm. Automated exposure control and iterative reconstruct ion technique were employed. COMPARISON: CT dated 12/01/2022 FINDINGS: Mild generalized atrophy. There are scattered moderate periventricular and subcortical whit e matter changes, most likely related to small vessel ischemic disease (microangiopathy). No ventricu lomegaly or midline shift. No abnormal contrast enhancement. Basilar cisterns are patent. No abnormal mass or mass effect. Paranasal sinuses and mastoids are pneumatized. No depressed skull fractures. IMPRESSION: 1. No acute intracranial abnormality. No evidence for intracranial metastases. 2: Chronic age-related findings. Reviewed, dictated and finalized at location B. IFIED HAND THERAPIST
== END 2022-12-03 13:32 | disposition home or self-care (01) ==
PROVIDERS: PCP Physician Assistant; Visit Provider Internal Medicine Hematology & Oncology
DX: C34.90 Malignant neoplasm of unspecified part of unspecified bronchus or lung (principal)
CPT/HCPCS: 70460; Q9967

== ENCOUNTER 2022-12-07 01:14 | Day surgery (SDC) | payer BC, MEDICAID, SELFPAY ==
[2022-12-03 09:16] VITALS: BMI 26.6
--- NOTE | 2022-12-03 09:21 | PC.NURSE ---
Report to the Outpatient Waiting Room, entrance under the green pavilion located off [facility], at time 1130 on date 12/07/22. Planned Procedure Time: 1330. Time changes happen often and if your time is changed the preop area will call you the afternoon before. - You and your visitor will be asked to self-screen and do not enter if you have any COVID symptoms. - Only one visitor is requested with a max of two and NO children visitors are allowed at this time. - The patient visitor may be requested to leave or wait in car when not with patient due to distancing restrictions. - A mask is optional within the hospital at this time. Patients may have clear liquids (water, carbonated beverages, clear teas, apple juice) until 3 hours prior to surgery with a maximum of 20 ounces. - No food from midnight until time of surgery Take the following medications with a SIP of water the morning of surgery: INHALERS, ANTIBIOTIC, ATIVAN IF NEEDED, PREDNISONE DO NOT STOP ANY OF YOUR OTHER PRESCRIPTION MEDICATIONS PRIOR TO SURGERY?EXCEPT THE FOLLOWING Medications to discontinue per physician: N/A Date to take last dose: N/A Please no make-up, nail tamazight, hairspray, perfume, deodorant, or body powder the day of surgery. No jewelry (including any body piercings) or valuables the day of surgery, leave them at home. Please take a shower or bath the night before, or the morning of, surgery with an antibacterial soap. Wear comfortable, loose fitting clothing. - Jewelry must be removed prior to entering the operating room. Rings and piercings that are not removed may be cut off. - The hospital will not accept responsibility for valuables. - Please leave all valuables, including medications, at home the day of surgery. If you are going home after surgery, a licensed water taxi driver must drive you home. - NO public transportation without another adult if you receive anesthesia. - We recommend that an adult stay with you for 24 hours following discharge. - We also recommend that you do not drive, make important decision, drink alcoholic beverages, or take any drugs that were not prescribed by your health care provider for at least 24 hours after your discharge time. Follow any additional instructions given to you from your surgeon. If you or anyone in your household have experienced Covid symptoms in the past week, please notify your surgeon or the nurse liaison at the phone number below for possible testing. Telephone instructions given to PT - DANIAL TURNER and asked if any additional questions and then verbalized understanding. Patient advised to call surgeon office or pre surgery nurse liaison [phone] if any additional questions.
--- NOTE | ~2022-12-07 | XR_ITS ---
EXAMINATION: XR fl guide central line place DATE: 12/07/2022 14:42 INDICATION: Port placement. TECHNIQUE: An intraoperative fluoroscopic view of the chest was obtained. I was not present. Fluorosc opy exposure time was 26 seconds. COMPARISON: Chest single view 12/07/2022 FINDINGS: There is a left internal jugular central venous catheter with tip at superior cavoatrial ju nction. IMPRESSION: 1. Catheter tip at superior cavoatrial junction. Reviewed, dictated and finalized at location A. OR NETWORK ADMINISTRATOR
--- NOTE | ~2022-12-07 | XR_ITS ---
EXAMINATION: XR chest port-a-cath/central Exam Date/Time: 12/07/2022 14:50 CHEMICAL APPLICATOR HISTORY: ANALI CATH LT SIDE Comparison: 12/01/2022. RESULT: Lines, tubes, and devices: Left chest port, terminating at the cavoatrial junction. Stable left ches t/axillary surgical clips. Lungs and pleura: Streaky left basilar scar/atelectasis, stable diffuse reticular pattern, otherwise clear. Cardiomediastinal silhouette: Stable. Other: No acute osseous or upper abdominal finding. IMPRESSION: New left chest port, in good position. No pneumothorax. No other significant interval change. Reviewed, dictated and finalized at location K. ICAL APPLICATOR IMPRESSION: New left chest port, in good position. No pneumothorax. No other significant in terval change.
--- NOTE | 2022-12-07 11:57 | WPDANESEPPF ---
Anes - Initial Pre Proc Eval Procedure: Operation Date: 12/07/22 13:30 Proposed Procedures p Insertion [place] Cath - Moe Mcgraw MD Date/Time: 12/07/22 11:57 Surgeon: Moe Mcgraw MD Pre Op Diagnosis: Lung Ca Patient Data Age: 62 Gender: F Height: 1.65 m Weight: 72.6 kg Allergies Allergy/AdvReac Type Severity Reaction Status Date / Time Sulfa (Sulfonamide Allergy Severe Difficulty Verified 12/06/22 15:14 Antibiotics) Breathing Home Medications Medication Instructions Recorded Confirmed Type metoprolol succinate 25 mg 25 mg PO HS 02/05/21 12/06/22 History tablet,extended release 24 hr quetiapine 300 mg tablet 300 mg PO HS 02/05/21 12/06/22 History simvastatin 20 mg tablet 20 mg PO HS 02/05/21 12/06/22 History albuterol sulfate 90 mcg/actuation 2 puff inhalation Q6HRT PRN 02/07/21 12/06/22 Rx aerosol inhaler (Proventil HFA) Shortness Of Breath #1 g albuterol sulfate 90 mcg/actuation 2 puff inhalation QID PRN 11/11/22 12/06/22 Rx aerosol inhaler shortness of breath or wheezing #8 grams albuterol sulfate 2.5 mg/3 mL 2.5 mg (3 mL) inhalation Q4-6H PRN 11/18/22 12/06/22 Rx (0.083 %) solution for nebulization shortness of breath or wheezing #180 mL lorazepam 1 mg tablet (Ativan) 1 mg PO BID PRN anxiety #30 tabs 11/18/22 12/06/22 Rx amoxicillin 875 mg-potassium 1 tablet PO Q12H 10 days #20 tabs 12/01/22 12/06/22 Rx clavulanate 125 mg tablet ibuprofen 400 mg tablet 400 mg PO TID PRN fever or pain 10 12/01/22 12/06/22 Rx days #30 tabs prednisone 20 mg tablet 60 mg PO DAILY 5 days #15 tabs 12/01/22 12/06/22 Rx guaifenesin 600 mg tablet, 600 mg PO HS 12/03/22 12/06/22 History extended release 12 hr (Mucinex) omeprazole magnesium 20 mg 20 mg PO HS 12/03/22 12/06/22 History tablet,delayed release (Prilosec OTC) fluticasone fur. 100 mcg-umeclid 1 inh inhalation DAILY 12/06/22 History 62.5 mcg-vilant 25 mcg inhalat.powder (Trelegy Ellipta) Patient hx anesthesia problems: none Family hx anesthesia problems: none Results Review: All pre-operative results and documents have been reviewed as part of the pre-operative evaluation. [facility] Past Medical History Medical History Alcohol use Anxiety Bloody diarrhea Cancer of left breast Status post bilateral mastectomy and chemoradiation. 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 The patient has 4 children. The patient smokes at least a pack a cigarettes a day. Surrogate decision maker: Cyndee Cobos, daughter. Code status: Full code. Smoking packs per day: 1 Smoking cigarettes per day: 20.0 Years smoked: 40 Smoking pack-years: 40.00 Smoking status: Current every day smoker Tobacco type: cigarettes Second hand tobacco smoke exposure: No Additional smoking assessment comments: A FEW A DAY NOW PLUS NICOTINE PATCH Alcohol intake: former Drinks per week: 14 Alcohol use details: NONE SINCE LUNG CA DIAGNOSIS Substance use: never Substance use type: does not use Lack of Transportation: No Lack of Food: Sometimes True Current Housing: I Have Housing Concerned About Future Housing: No Difficulty Paying Gas/Electric Bills: No Difficulty Paying for Meds: No Currently Unemployed: No Education: Trade/Vocational Certificate Difficulty w/ Childcare or Family Care: No Living arrangements:
--- NOTE | 2022-12-07 11:58 | PM.IMHP ---
H&P: HPI History of Present Illness Date/Time: 12/07/22 11:58 Chief Complaint: Left small cell lung CA Narrative: Pt presents after recently having been diagnosed with left small cell lung cancer. She is to undergo chemo tx and XRT. She has hx of prior left breast CA 10 years ago and had left MRM and prophylactic right total mastectomy. Left side was reconstructed with TRAM flap and right breast was reconstructed with prosthetic implant. She had a prior left sided portacatheter which was removed after her breast cancer treatment. Review of Systems Review of Systems: The remainder of the review of systems to include constitutional, HEENT, cardiovascular, respiratory, GI, , integumentary, musculoskeletal, endocrine, immunologic, hematologic, psychiatric, and neurologic are all negative except for which is mentioned above in the HPI. [facility] Past Medical History Medical History Alcohol use Anxiety Bloody diarrhea Cancer of left breast Status post bilateral mastectomy and chemoradiation. 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 The patient has 4 children. The patient smokes at least a pack a cigarettes a day. Surrogate decision maker: Cyndee Cobos, daughter. Code status: Full code. Smoking packs per day: 1 Smoking cigarettes per day: 20.0 Years smoked: 40 Smoking pack-years: 40.00 Smoking status: Current every day smoker Tobacco type: cigarettes Second hand tobacco smoke exposure: No Additional smoking assessment comments: A FEW A DAY NOW PLUS NICOTINE PATCH Alcohol intake: former Drinks per week: 14 Alcohol use details: NONE SINCE LUNG CA DIAGNOSIS Substance use: never Substance use type: does not use Lack of Transportation: No Lack of Food: Sometimes True Current Housing: I Have Housing Concerned About Future Housing: No Difficulty Paying Gas/Electric Bills: No Difficulty Paying for Meds: No Currently Unemployed: No Education: Trade/Vocational Certificate Difficulty w/ Childcare or Family Care: No Living arrangements: alone Additional living arrangements comments: The patient lives in [place]. 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 Gender identity (if verbalized by the patient): Female Sexual Orientation (if Verbalized by the Patient): Straight or Heterosexual Spiritual care concerns: No Meds Home Medications and Allergies Home Medications Medication Instructions Recorded Confirmed Type metoprolol succinate 25 mg 25 mg PO HS 02/05/21 12/06/22 History tablet,extended release 24 hr quetiapine 300 mg tablet 300 mg PO HS 02/05/21 12/06/22 History simvastatin 20 mg tablet 20 mg PO HS 02/05/21 12/06/22 History albuterol sulfate 90 mcg/actuation 2 puff inhalation Q6HRT PRN 02/07/21 12/06/22 Rx aerosol inhaler (Proventil HFA) Shortness Of Breath #1 g albuterol sulfate 90 mcg/actuation 2 puff inhalation QID PRN 11/11/22 12/06/22 Rx aerosol inhaler shortness of breath or wheezing #8 grams albuterol sulfate 2.5 mg/3 mL 2.5 mg (3 mL) inhalation Q4-6H PRN 11/18/22 12/06/22 Rx (0.083 %) solution for nebulization shortness of breath or wheezing #180 mL lorazepam 1 mg tablet (Ativan) 1 mg PO BID PRN anxiety #30 tabs 11/18/22 12/06/22 Rx amoxicillin 875 mg-potassium 1 tablet PO Q12H 10 days #20 tabs 12/01/22 12/06/22 Rx
--- NOTE | 2022-12-07 12:05 | WPDHPUPDATE1 ---
History and Physical Update Update Date/Time: 12/07/22 12:05 History and Physical has been reviewed, including an updated exam of the patient. There are NO changes in the patient's condition. Risks, benefits, and alternatives have been discussed and questions answered. Patient agrees to proceed with procedure.
[2022-12-07 12:17] VITALS: BP 124/80; PULSE 106; RESP 14; TEMP 36.7; O2SAT 94
[2022-12-07] MEDS: LACTATED RINGERS 1,000 ML 30 ML IV CONT (12:54)
[2022-12-07] MEDS: ceFAZolin 2 GM/D5W 50 ML 2 GM/50 ML BAG IVPB (13:50)
[2022-12-07] MEDS: LIDO 1%/EPINEPHRINE 1:100,000 20 ML VIAL INFILTRATE (14:11)
--- NOTE | 2022-12-07 14:25 | SUR.OPER ---
smart port ct/lot [id number] exp 2025-10-09. left chest
--- NOTE | 2022-12-07 14:35 | SUR.OPER ---
no picture sent with u/s as per surgeon
[2022-12-07 14:44] VITALS: BP 109/63; PULSE 110; RESP 15; O2SAT 96
--- NOTE | 2022-12-07 14:50 | W.PM.PROC2 ---
Procedure Note - Detailed Date of Procedure 12/07/22 Pre-op Diagnosis Left small cell lung cancer Post-op Diagnosis Same Procedure Performed Ultrasound-guided placement of left internal jugular vein single-lumen port a catheter with intraoperative fluoroscopy Surgeon Moe Mcgraw MD High Heel Builder JOSE ALFREDO Anderson Anesthesia MAC Indications Patient is a 62-year-old female who unfortunately was recently diagnosed small cell cancer of the left lung. She is to undergo chemotherapy treatments and radiation therapy. Presents now for placement of a jovan catheter to administer the chemotherapy. Findings None. Description of Procedure After informed consent was obtained the patient was brought to the operating room where she was placed in supine position and then IV sedation was administered by anesthesia. The bilateral upper anterior neck and chest was then prepped and draped in usual sterile fashion. A time-out was performed identifying the patient as well as procedure to be performed. She was given Ancef for perioperative IV antibiotics. As her disease lung was the left lung I initially attempted placement of the port catheter via the left internal jugular vein. I then anesthetized the area between the 2 heads of the left sternocleidomastoid muscle with 1% lidocaine mixed with 0.5% Marcaine. Under ultrasound guidance directly interpreted by myself intraoperatively, I identified the left internal jugular vein and then used a long 18gauge spinal needle to percutaneously cannulate the left internal jugular vein on the 1st pass under direct ultrasound guidance. Prompt return of dark venous blood was returned in the syringe and then I passed a guidewire through the needle into the left internal jugular vein and subsequently down into the superior vena cava. Intraoperative fluoroscopy was used to confirm proper placement the tip of the guidewire. I then anesthetized the area just below the medial 3rd of the left clavicle with the same local anesthetic mixture. A transverse incision was administered with a scalpel and then dissection was carried down through the subcutaneous tissues until the anterior pectoralis major fascia was encountered. Then with a combination of blunt finger and electrocautery dissection I created the cutaneous port pocket inferior to the incision. I then anesthetized the area between the incision and neck incision and then tunneled the 9.6 Slovak single-lumen catheter site between the 2 incisions. I then stay dilator and breakaway sheath over the guidewire and then removed the dilator and guidewire leaving the sheath in place. The catheter was then through the sheath into the internal jugular vein and subsequently down into the right atrium of the heart. Utilizing intraoperative fluoroscopy and then visualized tip of the catheter and pulled back on the catheter until the tip was at the distal superior vena cava. The catheter was then cut to the appropriate length at the skin level and attached to the Smart Port. The port was then secured in the subcutaneous port pocket with 3-0 Prolene sutures. We irrigated out the incision with sterile saline solution and then accessed the port with a Eason needle. It aspirated blood easily and was flushed with heparinized saline solution. I then closed the incision utilizing interrupted 3-0 Vicryl sutures in subcutaneous tissues and then the skin incision on both the neck and left anterior chest was closed utilizing a running subcuticular 4-0 Monocryl suture. Lastly accessed the port percutaneously 1 last time and again fidel back blood easily and was flushed with 5000units of heparin. The patient tolerated the procedure well no complications. All sponges, needles, and instrument counts were correct at the end procedure. EBL was _10__cc. The patient was awakened and taken to recovery in stable and satisfactory condition. Postprocedure chest x-ray is pending at the time this dictation. Implants 9.6 F
--- NOTE | 2022-12-07 14:58 | SUR.PHASEII ---
PATIENT TEARFUL WHEN ARRIVED TO OP; DENIES PAIN. ASKED NOT TO CALL FAMILY UNTIL READY TO LEAVE. PORTABLE CXR DONE.
--- NOTE | 2022-12-07 15:03 | SUR.PHASEII ---
DR. WALKER CAME TO SPEAK WITH PATIENT; STATES IF CXR READING SHOWS NO PNEUMOTHORAX, SHE MAY GO HOME.
[2022-12-07 15:10] VITALS: BP 108/71; PULSE 107; RESP 15; O2SAT 95
[2022-12-07 15:30] VITALS: BP 109/63; PULSE 107; RESP 15
== END 2022-12-07 15:40 | disposition home or self-care (01) ==
PROVIDERS: PCP Physician Assistant; Visit Provider Surgery
PROC: (CPT 36561; principal; 2022-12-07 13:30)
DX: C34.92 Malignant neoplasm of unspecified part of left bronchus or lung (principal); I10 Essential (primary) hypertension; E78.5 Hyperlipidemia, unspecified; J44.9 Chronic obstructive pulmonary disease, unspecified; F32.A Depression, unspecified; F41.9 Anxiety disorder, unspecified; Z85.3 Personal history of malignant neoplasm of breast; Z92.21 Personal history of antineoplastic chemotherapy; Z92.3 Personal history of irradiation; F17.210 Nicotine dependence, cigarettes, uncomplicated; Z79.51 Long term (current) use of inhaled steroids
CPT/HCPCS: 36561; 77001; C1788; J0690; J1644; J2704; J3010; J7030; J7120

== ENCOUNTER 2022-12-09 07:19 | Outpatient (CLI) | payer BC, MEDICAID, SELFPAY ==
--- NOTE | ~2022-12-09 | PE_ITS ---
EXAMINATION: PET skull to mid thigh DATE: 12/09/2022 09:52 INDICATION: Non-small cell lung cancer. TECHNIQUE: 10.860 mCi of 18-fluorodeoxyglucose (18-FDG) was administered i.v. Low dose computed tomog smiley (CT) images were acquired from the base of the brain to the proximal thighs for attenuation cor rection and anatomic localization. Automated exposure control was employed. Dose-length product (DLP) was 578 mGy-cm. Positron emission tomography (PET) images were acquired in the same distribution. COMPARISON: Chest CT 12/01/2022 FINDINGS: Head/neck: There are no pathologically enlarged lymph nodes. There is a 12 mm subcutaneous mass with increased activity in left posterior neck, consistent with metastatic disease. There is a 9 mm focus of increased activity in the left posterior inferior neck musculature without abnormal CT correlate, which is indeterminate for metastatic disease. Chest: There is mild emphysema. There is a 6.0 x 5.7 cm left hilar mass with increased activity. Ther e are airspace opacities in left lower lobe with mild activity, consistent with atelectasis and pneum onia. There are a few nodules with increased activity in left lung measuring up to 11 mm. There is me diastinal and bilateral hilar lymphadenopathy with increased activity. There is a left internal jugul ar port with tip in proximal right atrium. The heart size is normal. There are coronary artery calcif ications. No pericardial effusion. There is a right breast implant. There are changes of left breast reconstruction. There is a subcentimeter subcutaneous mass in right posterolateral chest with increas ed activity. There is a 10 mm subcutaneous mass with increased activity in right posterior inferior c hest. There are chronic fractures of T3, T6, and T9 vertebral bodies. Abdomen/pelvis/proximal thighs: The liver, gallbladder, pancreas, and adrenal glands are normal. Calc ifications in the spleen are consistent with old granulomatous disease. The kidneys are normal. There are small masses in the left retroperitoneum with increased activity measuring up to 7 mm. There are normal-sized left inguinal lymph nodes with increased activity, which may be reactive. There is a 6 mm subcutaneous mass with increased activity in the right flank. There is diffuse osteopenia. There i s severe lumbar spondylosis. IMPRESSION: 1. Left hilar mass, left lung nodules, chest lymphadenopathy, and scattered body wall and left retrop eritoneal masses with increased activity, consistent with metastatic disease. 2. Postobstructive atelectasis and pneumonia in left lower lobe. Reviewed, dictated and finalized at location A. 8TH GRADE TEACHER IMPRESSION: 1. Left hilar mass, left lung nodules, chest lymphadenopathy, and scattered bod y wall and left retroperitoneal masses with increased activity, consistent with metastatic disease. 2. Postobstructive atelectasis and pneumonia in left lower lobe.
[2022-12-09 08:00] LABS: Glucose Point of Care 120 mg/dl (65-105)
== END 2022-12-09 07:20 | disposition home or self-care (01) ==
LOC: ANHIMG 07:23
PROVIDERS: PCP Physician Assistant; Visit Provider Internal Medicine Hematology & Oncology
DX: C34.90 Malignant neoplasm of unspecified part of unspecified bronchus or lung (principal); J98.11 Atelectasis; J18.9 Pneumonia, unspecified organism; R91.8 Other nonspecific abnormal finding of lung field
CPT/HCPCS: 78815; A9552

== ENCOUNTER 2022-12-16 10:18 | Outpatient (CLI) | payer BC, SELFPAY ==
--- NOTE | ~2022-12-16 | MR_ITS ---
EXAMINATION: MR brain IAC wo/w con DATE: 12/16/2022 11:18 INDICATION: Small cell lung cancer. TECHNIQUE: Magnetic resonance imaging (MRI) of the brain, brainstem, and internal auditory canals was performed without and with 14 mL MultiHance intravenous contrast. COMPARISON: Head CT 12/03/2022 FINDINGS: There are scattered areas of nonspecific increased T2-weighted signal intensity in the cere bral white matter. There is no acute ischemic infarct or abnormal mass lesion. There are scattered ol d microhemorrhages in the cerebrum and cerebellum. The ventricles are normal in size. The paranasal s inuses are clear. The mastoid air cells are normal. The orbits are normal. IMPRESSION: 1. No evidence of metastatic disease. 2. Moderate nonspecific cerebral white matter disease, which likely represents chronic small vessel i schemic disease. 3. Scattered old microhemorrhages in the cerebrum and cerebellum. This finding is most commonly seen with chronic hypertensive encephalopathy or amyloid angiopathy. Reviewed, dictated and finalized at location A. RK OPERATOR IMPRESSION: 1. No evidence of metastatic disease. 2. Moderate nonspecific cerebral white matter disease, which likely represents chronic small vessel ischemic disease. 3. Scattered old microhemorrhages in the cerebrum and cerebellum. This finding is most commonly seen with chronic hypertensive encephalopathy or amyloid angio jatin.
== END 2022-12-16 10:19 | disposition home or self-care (01) ==
PROVIDERS: PCP Physician Assistant; Visit Provider Radiology Radiation Oncology
DX: C34.90 Malignant neoplasm of unspecified part of unspecified bronchus or lung (principal); R93.0 Abnormal findings on diagnostic imaging of skull and head, not elsewhere classified
CPT/HCPCS: 70553; A9577

== ENCOUNTER 2022-12-24 15:44 | Observation (INO) | payer BC, SELFPAY ==
--- NOTE | ~2022-12-24 | XR_ITS ---
XR chest 2V 12/24/2022 16:35 Indication: Shortness of breath. Lung cancer. Procedure: AP and lateral views the chest Comparison: Comparison to multiple prior studies sequentially, with oldest reviewed study dated 06/2023. Findings: Portacatheter tip in the SVC. Heart size normal. There are bilateral interstitial infiltrat es of the mid and lower lungs which may represent mild edema or pneumonia. No pleural effusion or pne umothorax. No acute osseous abnormality. Impression: 1: Mild bilateral interstitial infiltrates of the mid and lower lungs which may represent edema or pn eumonia. Reviewed, dictated and finalized at location A. Impression: 1: Mild bilateral interstitial infiltrates of the mid and lower lungs which may represent edema or pneumonia.
--- NOTE | ~2022-12-24 | CT_ITS ---
EXAMINATION: CTA chest PE protocol DATE: 12/24/2022 18:01 CDT INDICATION: Shortness of breath TECHNIQUE: Computed tomographic angiography (CTA) of the chest was performed with 100 mL Omnipaque-35 0 intravenous contrast. The dose-length product was 271.25 mGy-cm. Maximum intensity projection 3D-re constructions of the aorta and other arteries were constructed by the technologist on a separate work station. COMPARISON: CT dated 12/01/2022. FINDINGS: There is extensive mediastinal lymph node enlargement with encasement of the left pulmonary artery. There is normal contrast opacification of the pulmonary arteries without evidence for pulmon eddie embolism. Small pericardial effusion. No significant pleural effusion. There is a right breast im plant. There is a soft tissue nodule in the left upper back measuring 1.4 cm compared with 1.[address] Metastatic disease not excluded. There is emphysema. There are stable left upper lobe pulmo nary nodules, largest measuring 1.2 x 9 mm, unchanged from prior examination. There is improved left lower lobe consolidation. There is dependent atelectasis in the right lung. There are calcified granu leticia of the spleen. There is a chronic compression fracture of the midthoracic spine. No focal lytic or blastic lesions. There is a chronic superior endplate compression fracture of T3. IMPRESSION: 1. No evidence for pulmonary embolism. 2: Improvement of left lower lobe airspace consolidation which may represent resolving pneumonia and /or atelectasis. 3: Stable left upper lobe pulmonary nodules and extensive mediastinal/left hilar lymph node enlargem ent, consistent with metastatic disease. 4: Enlarging soft tissue nodule left upper back. Cannot exclude metastatic disease. Reviewed, dictated and finalized at location A. IMPRESSION: 1. No evidence for pulmonary embolism. 2: Improvement of left lower lobe airspace consolidation which may represent r esolving pneumonia and/or atelectasis. 3: Stable left upper lobe pulmonary nodules and extensive mediastinal/left hil ar lymph node enlargement, consistent with metastatic disease. 4: Enlarging soft tissue nodule left upper back. Cannot exclude metastatic dise ase.
[2022-12-24 15:45] VITALS: BP 109/83; PULSE 110; RESP 20; TEMP 36.5; O2SAT 96
--- NOTE | 2022-12-24 15:51 | ECG_ITS ---
Measurements Intervals [place] Rate: 112 P: 59 WI: 162 QRS: 57 QRSD: 87 T: 76 QT: 317 QTc: 433 Interpretive Statements SINUS TACHYCARDIA RSR' IN V1 OR V2, CONSIDER RIGHT VENTRICULAR HYPERTROPHY OR RIGHT VCD BASELINE ARTIFACT- I, II, III, AVR, V4-V5 BORDERLINE ECG COMPARED TO ECG 11/11/2022 15:21:34 NO SIGNIFICANT CHANGES Electronically Signed On 12-24-2022 16:53:09 CDT by Brandyn Moore D.O.
[2022-12-24 16:13] LABS: Basophils Percent Auto 0.2 % (0.2-1.2); Eosinophils Absolute Auto 0.1 K/mm3 (0-0.3); Eosinophils Percent Auto 0.4 % (0-4.4); Hematocrit 40.3 % (37.0-47.0); Hemoglobin 14.2 g/dL (12.0-15.0); Immature Granulocyte Absolute 0.06 K/mm3 (0.00-0.031); Immature Granulocyte Percent A 0.5 % (0-0.5); Lymphocytes Absolute Auto 2.13 K/mm3 (0.9-3.2); Lymphocytes Percent Auto 18.4 % (18.3-44.2); Mean Corpuscular HGB Conc 35.2 g/dl (32-36); Mean Corpuscular Hemoglobin 32.6 pg (26-34); Mean Corpuscular Volume 92.4 fl (80-100); Mean Platelet Volume 9.2 fl (7.4-10.4); Monocytes Percent Auto 0.2 % (2.6-8.5); Neutrophils Absolute Auto 9.3 K/mm3 (1.3-6.7); Neutrophils Percent Auto 80.3 % (45.5-73.1); Platelet Count Result 300 k/mm3 (150-375); Red Blood Count 4.36 M/mm3 (4.2-5.4); Red Cell Distribution Width 12.6 % (11.5-14.5); White Blood Count 11.6 K/mm3 (4.5-10.0)
[2022-12-24 16:14] VITALS: O2SAT 99
[2022-12-24 16:22] LABS: Alanine Aminotransferase 26 U/L (6-35); Albumin Level 4.5 g/dL (3.5-5.1); Alkaline Phosphatase 71 U/L (38-126); Anion Gap 8 mmol/L (8-16); Aspartate Amino Transferase 34 U/L (14-36); Bilirubin,Total 0.9 mg/dL (0.2-1.3); Blood Urea Nitrogen 30 mg/dL (7-17); Calcium 9.6 mg/dL (8.4-10.2); Carbon Dioxide 27 mmol/L (22-30); Chloride 88 mmol/L (98-107); Estimated CRCL calculation 68 ml/min; Estimated Glomerular Filt Rate > 60; Glucose 117 mg/dL (65-110); Potassium 4.1 mmol/L (3.4-5.0); Sodium 123 mmol/L (137-145)
[2022-12-24 16:33] LABS: NT Pro B Type Natriuretic Pept 53 pg/mL (19.9-100); Troponin I < 0.012 ng/mL (0.000-0.034)
[2022-12-24] MEDS: SODIUM CHLORIDE 0.9% IV 1,000 ML 999 ML IV CONT (17:34)
[2022-12-24] MEDS: LORazepam INJ (*CRX) 2 MG/ML VIAL 0.5 MG IV PUSH (17:37)
[2022-12-24 17:38] VITALS: BP 97/79; PULSE 103; RESP 22; O2SAT 97
--- NOTE | 2022-12-24 18:36 | ED.SOB ---
HPI - SOB/Dyspnea General Chief Complaint: Shortness of Breath/Dyspnea Stated Complaint: SOB History of Present Illness HPI Narrative: Patient is a 62-year-old female who presents ER with shortness of breath. Worsening over last 3 days. Has history of COPD and lung cancer. Just finished her first 3 rounds of chemotherapy when symptoms started. She also was diagnosed with pneumonia on 12/01/2022 for which she completed some Augmentin. Denies fevers or chills. She has tried breathing treatments without improvement at home. No loss of consciousness. No pain with deep breath. She does have cough that is nonproductive at this time. Related Data Home Medications Medication Instructions Recorded Confirmed metoprolol succinate 25 mg 25 mg PO HS 02/05/21 12/22/22 tablet,extended release 24 hr quetiapine 300 mg tablet 300 mg PO HS 02/05/21 12/22/22 simvastatin 20 mg tablet 20 mg PO HS 02/05/21 12/22/22 guaifenesin 600 mg tablet, 600 mg PO HS 12/03/22 12/22/22 extended release 12 hr (Mucinex) omeprazole magnesium 20 mg 20 mg PO HS 12/03/22 12/22/22 tablet,delayed release (Prilosec OTC) fluticasone fur. 100 mcg-umeclid 1 inh inhalation DAILY 12/06/22 12/22/22 62.5 mcg-vilant 25 mcg inhalat.powder (Trelegy Ellipta) Allergies Allergy/AdvReac Type Severity Reaction Status Date / Time Sulfa (Sulfonamide Allergy Severe Difficulty Verified 12/22/22 13:04 Antibiotics) Breathing Review of Systems Review of Systems: All systems reviewed & are unremarkable except as noted in HPI and below Constitutional: Constitutional: Denies chills, Reports fatigue and Denies fever(s) ENT: Denies nasal congestion and Denies sore throat Cardiovascular: Cardiovascular: Denies chest pain, Denies rapid heart rate and Denies radiating jaw, neck or arm pain Respiratory: Respiratory: Reports cough, Reports dyspnea and Reports wheezing Gastrointestinal: Gastrointestinal: Denies abdominal pain, Denies nausea and Denies vomiting [facility] Past Medical History Medical History (Updated 12/24/22 @ 20:01 by Beltran Smith MD) Alcohol use Anxiety Bloody diarrhea Cancer of left breast Status post bilateral mastectomy and chemoradiation. 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 The patient has 4 children. The patient smokes at least a pack a cigarettes a day. Surrogate decision maker: Cyndee Cobos, daughter. Code status: Full code. Smoking packs per day: 1 Smoking cigarettes per day: 20.0 Years smoked: 40 Smoking pack-years: 40.00 Smoking status: Former smoker Tobacco type: cigarettes Second hand tobacco smoke exposure: No Smoking end date: 12/08/22 Additional smoking assessment comments: A FEW A DAY NOW PLUS NICOTINE PATCH Alcohol intake: former Drinks per week: 14 Alcohol use details: NONE SINCE LUNG CA DIAGNOSIS Substance use: never Substance use type: does not use Lack of Transportation: No Lack of Food: Sometimes True Current Housing: I Have Housing Concerned About Future Housing: No Difficulty Paying Gas/Electric Bills: No Difficulty Paying for Meds: No Currently Unemployed: No Education: Trade/Vocational Certificate Difficulty w/ Childcare or Family Care: No Living arrangements: alone Additional living arrangements comments: The patient lives in [place]. 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
--- NOTE | 2022-12-24 18:45 | PM.IMHP ---
H&P: HPI History of Present Illness Date/Time: 12/24/22 18:45 Chief Complaint: Shortness of breath. Narrative: This is a 62-year-old female with small cell lung cancer currently undergoing chemotherapy with hypertension and dyslipidemia who presented to the emergency department for evaluation of shortness of breath. Patient provides the following history. She had her 1st chemotherapy treatments this week on Tuesday, Tuesday, and Tuesday. With each treatment she felt ?full of fluid? and each day she has been feeling more short of breath. She did not sleep well last night due to shortness of breath and this morning she used her albuterol inhaler and a nebulizer without much benefit. Her appetite has been poor since starting chemotherapy and she has had frequent nausea. She vomited last night but denies concerns for aspiration. She has not necessarily felt herself wheezing and she denies orthopnea, paroxysmal nocturnal dyspnea, and lower extremity edema. She has not had any chest pain or pleuritic pain. No fever, chills, or sweats. She was afebrile on arrival to the ED with stable vital signs. Pertinent labs include a WBC count of 11.6, sodium 123 (baseline between 130 and 135), chloride 88, BUN 30, creatinine 0.70. CT of the chest showed no evidence of pulmonary embolism and improvement in left lower lobe airspace consolidation as well as stable pulmonary nodules and lymphadenopathy. CT did note an enlarging soft tissue nodule in the left upper back. She is being admitted in this setting for hydration and IV antibiotics for findings of pneumonia. Review of Systems Review of Systems: Twelve systems were reviewed and are negative except for as per HPI. [facility] Past Medical History Medical History (Updated 12/25/22 @ 00:27 by Maame Tyler PA-C) Alcohol use Anxiety Cancer of left breast Status post bilateral mastectomy and chemoradiation. Chronic obstructive pulmonary disease Depression Dyslipidemia Hypertension Tobacco abuse Surgical History Surgical History History of bilateral mastectomy History of hysterectomy History of tonsillectomy Family History Family History Mother Diabetes mellitus Grandparent Diabetes mellitus Social History Social History (Updated 12/26/22 @ 16:11 by Maame Tyler PA-C) Social History: Surrogate decision maker: Cyndee Cobos, daughter. Code status: Full code. Smoking packs per day: 1 Smoking cigarettes per day: 20.0 Years smoked: 45 Smoking pack-years: 45.00 Smoking status: Former smoker Tobacco type: cigarettes Second hand tobacco smoke exposure: No Smoking end date: 11/02/22 Additional smoking assessment comments: Down to a few cigarettes a day since lung cancer diagnosis. Alcohol intake: former Drinks per week: 14 Alcohol use details: No alcohol since lung cancer diagnosis. Substance use: never Substance use type: does not use Lack of Transportation: No Lack of Food: Never True Current Housing: I Have Housing Concerned About Future Housing: No Difficulty Paying Gas/Electric Bills: No Difficulty Paying for Meds: No Currently Unemployed: No Education: Trade/Vocational Certificate Difficulty w/ Childcare or Family Care: No Living arrangements: alone Additional living arrangements comments: The patient lives in [place]. 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 Spiritual care concerns: No Meds Home Medications and Allergies Home Medications Medication Instructions Recorded Confirmed Type metoprolol succinate 25 mg 25 mg PO HS 02/05/21 12/24/22 History tablet,extended release 24 hr quetiapine 300 mg tablet 300 mg PO HS 02/05/21 12/24/22 History simvastatin 20 mg tablet 20 mg PO HS 02/05/21 12/24/22 History albuterol sulfate 90 mcg/actuation 2 puff inhalation Q6HRT IA
[2022-12-24] MEDS: ACETAMINOPHEN 325 MG TABLET 650 MG PO (19:06)
[2022-12-24 20:12] VITALS: PULSE 97; RESP 16; O2SAT 97
[2022-12-24 21:00] VITALS: PULSE 105; RESP 20; O2SAT 99
[2022-12-24 21:26] VITALS: BP 107/77; PULSE 105; RESP 20; TEMP 36.6; O2SAT 99
[2022-12-24 21:27] VITALS: BMI 25.4
[2022-12-24] MEDS: HYDROcodone/acetaminophen (*CRX) 5-325 MG TABLET 1 TAB PO (22:10)
[2022-12-25] MEDS: LORazepam (*CRX) 1 MG TABLET PO ×2 (01:08→14:57)
[2022-12-25] MEDS: METOPROLOL SUCCINATE EXT REL 25 MG TABCR PO (01:09)
[2022-12-25] MEDS: QUEtiapine FUMARATE 100 MG TABLET 300 MG PO (01:09)
[2022-12-25] MEDS: guaiFENesin 12 HR 600 MG TABCR PO (01:09)
[2022-12-25] MEDS: SIMVASTATIN 20 MG TABLET PO (01:10)
[2022-12-25 01:51] LABS: Anion Gap 5 mmol/L (8-16); Blood Urea Nitrogen 25 mg/dL (7-17); Calcium 8.3 mg/dL (8.4-10.2); Carbon Dioxide 27 mmol/L (22-30); Chloride 95 mmol/L (98-107); Estimated CRCL calculation 78 ml/min; Estimated Glomerular Filt Rate > 60; Glucose 110 mg/dL (65-110); Potassium 3.9 mmol/L (3.4-5.0); Sodium 127 mmol/L (137-145)
[2022-12-25] MEDS: IPRATROPIUM BR 0.02% INH SOLN 0.5 MG/2.5 ML VIAL INHALATION ×2 (01:52→09:46)
[2022-12-25] MEDS: ALBUTEROL SULFATE NEB 2.5 MG/3 ML INH INHALATION ×2 (01:52→09:46)
[2022-12-25 01:56] VITALS: PULSE 95; RESP 20
[2022-12-25 01:57] VITALS: PULSE 95; RESP 18; O2SAT 96
[2022-12-25 06:00] VITALS: BP 92/74; PULSE 93; RESP 20; TEMP 36.9; O2SAT 91
[2022-12-25 06:05] LABS: Hematocrit 33.8 % (37.0-47.0); Hemoglobin 11.7 g/dL (12.0-15.0); Mean Corpuscular HGB Conc 34.6 g/dl (32-36); Mean Corpuscular Hemoglobin 32.7 pg (26-34); Mean Corpuscular Volume 94.4 fl (80-100); Mean Platelet Volume 9.6 fl (7.4-10.4); Platelet Count Result 219 k/mm3 (150-375); Red Blood Count 3.58 M/mm3 (4.2-5.4); Red Cell Distribution Width 12.9 % (11.5-14.5); White Blood Count 7.1 K/mm3 (4.5-10.0)
[2022-12-25 06:21] LABS: Anion Gap 6 mmol/L (8-16); Blood Urea Nitrogen 25 mg/dL (7-17); Calcium 8.2 mg/dL (8.4-10.2); Carbon Dioxide 26 mmol/L (22-30); Chloride 96 mmol/L (98-107); Estimated CRCL calculation 78 ml/min; Estimated Glomerular Filt Rate > 60; Glucose 107 mg/dL (65-110); Magnesium 1.8 mg/dL (1.6-2.3); Sodium 128 mmol/L (137-145)
[2022-12-25] MEDS: PANTOPRAZOLE 40 MG TABLET PO (08:09)
[2022-12-25 09:46] VITALS: PULSE 93; RESP 18
[2022-12-25] MEDS: FLUTICASONE/UMECLIDIN/VILANTER 100-62.5-25 MCG ELLIPTA 1 PUFF INHALATION (09:46)
--- NOTE | 2022-12-25 12:51 | PM.DS ---
DS: Admitting Diagnosis Discharge Date 12/25/22 Admitting Diagnosis dehydration, pneumonia DS: Discharge Diagnosis Discharge Diagnosis (1) Pneumonia involving left lung: Code(s): J18.9 - Pneumonia, unspecified organism Status: Acute (2) Hyponatremia: Code(s): E87.1 - Hypo-osmolality and hyponatremia Status: Acute (3) Dehydration: Code(s): E86.0 - Dehydration Status: Acute (4) Chronic obstructive pulmonary disease: Code(s): J44.9 - Chronic obstructive pulmonary disease, unspecified Status: Acute (5) Nodule of soft tissue: Code(s): M79.89 - Other specified soft tissue disorders Status: Acute (6) Small cell lung cancer: Code(s): C34.90 - Malignant neoplasm of unspecified part of unspecified bronchus or lung Status: Acute DS: Summary Hospital Course Reason for hospitalization: 12/25/22 Hospital Course: This a 62-year-old female with small cell lung cancer that recently underwent chemotherapy 3 days in a row this week. Patient presented to the ED on 12/24/2022 with chief complaint of shortness of breath. Patient did not feel well after chemotherapy and Did have frequent nausea and vomiting but she did not have any concerns for aspiration. Patient complains frequent albuterol inhaler and nebulizer use without much benefit as well as decreased appetite. patient denies wheezing, orthopnea, nocturnal dyspnea, lower extremity edema fever, chest pain, chills, body aches. Patient's initial labs revealed mildly elevated white count 11.6, hyponatremia with sodium 123, elevated BUN at 30 with normal creatinine 0.7. CT chest revealed no evidence of pulmonary embolism and improvement left lower lobe airspace consolidation, stable pulmonary nodules and lymphadenopathy. There was an enlarging soft tissue nodule in the left upper back and cannot exclude metastatic disease. Patient is his setting of dehydration. patient received continuous IV fluids. Patient with possible pneumonia although CT scan did show improving consolidation. Patient was started on ceftriaxone and azithromycin for pneumonia. Will continue this treatment for a total of 5 days Due to patient's and findings on imaging. 12/25/2022 patient is feeling much better and her symptoms have resolved. Stressed the importance hydration. Discussed with patient that most of her symptoms of shortness of breath, nausea, and vomiting are most likely due to chemotherapy and/or cancer. Advise patient follow up with oncology, Dr. Cottrell, and pulmonology, Dr. Mccullough. Patient is not requiring any increased oxygen demands, labs are improved, vital signs stable. Patient is cleared to be discharged. Time Spent with Patient Time attestation: Total time spent providing and/or coordinating discharge services: Exam Narrative: GENERAL: Comfortable, no acute distress HENMT: moist mucous membranes EYES: EOM intact b/l NECK: no lymphadenopathy RESPIRATORY: clear to auscultation CARDIO: RRR GI: soft, nontender, bowel sounds present SKIN: no rashes EXTREMITIES: no edema, redness or tenderness DS: Data Data Completed and Pending Labs on day of discharge: Labs from last 24 hours 12/25/22 12/25/22 12/25/22 05:22 05:22 01:33 WBC 7.1 RBC 3.58 L Hgb 11.7 L Hct 33.8 L MCV 94.4 MCH 32.7 MCHC 34.6 RDW 12.9 Plt Count 219 MPV 9.6 Immature Gran % (Auto) Neut % (Auto) Lymph % (Auto) [place] % (Auto) Eos % (Auto) Baso % (Auto) Lymph # (Auto) [place] # (Auto) Eos # (Auto) Baso # (Auto) Abs Immat Gran (auto) Absolute Neuts (auto) Absolute Nucleated RBC Nucleated RBC % Sodium 128 L Potassium 4.0 Chloride 96 L Carbon Dioxide 26 Anion Gap 6 L BUN 25 H Creatinine 0.60 L Estim Creat Clear Calc 78 Estimated GFR > 60 Glucose 107 Serum Osmolality Calcium 8.2 L Magnesium 1.8 Total Bilirubin AST ALT
[2022-12-25 14:00] VITALS: BP 116/66; PULSE 93; RESP 16; TEMP 37.1; O2SAT 99
[2022-12-28 19:11] LABS: Mycoplasma IgM Antibody Titer 183 U/mL (<770)
== END 2022-12-25 16:15 | disposition home or self-care (01) ==
LOC: ANHED 18:38 → ANH2MED 20:14
PROVIDERS: Physician Assistant; Admitting Provider Family Medicine; Emergency Provider Emergency Medicine; PCP Physician Assistant; Visit Provider Internal Medicine
DX: J18.9 Pneumonia, unspecified organism (principal); E87.1 Hypo-osmolality and hyponatremia; E86.0 Dehydration; J44.9 Chronic obstructive pulmonary disease, unspecified; M79.89 Other specified soft tissue disorders; C34.90 Malignant neoplasm of unspecified part of unspecified bronchus or lung; F41.9 Anxiety disorder, unspecified; F32.A Depression, unspecified; E78.5 Hyperlipidemia, unspecified; I10 Essential (primary) hypertension; R91.8 Other nonspecific abnormal finding of lung field; R06.09 Other forms of dyspnea; F10.90 Alcohol use, unspecified, uncomplicated; Z90.13 Acquired absence of bilateral breasts and nipples; Z87.891 Personal history of nicotine dependence; Z85.3 Personal history of malignant neoplasm of breast; Z92.21 Personal history of antineoplastic chemotherapy; Z87.01 Personal history of pneumonia (recurrent); Z79.51 Long term (current) use of inhaled steroids; Z79.899 Other long term (current) drug therapy
CPT/HCPCS: 36415; 71046; 71275; 80048; 80053; 83735; 83880; 83930; 84443; 84484; 85025; 85027; 86738; 87040; 93005; 94640; 96361; 96365; 96374; 96375; 99285; A9270; G0378; J0456; J0696; J2060; J7030; Q9967

== ENCOUNTER 2022-12-31 12:17 | Outpatient (CLI) | payer BC, SELFPAY ==
--- NOTE | 2023-01-04 20:57 | WPDPFTINT ---
PFT Procedure Performed PFT Procedure Performed Spirometry with Pre/Post Bronchodilator Plethysmography (Lung Vol) Diffusing Cap (DLCO) PFT Interpretation DOS: 12/31/2022 REQUESTING: Maria Del Carmen Mccullough MD REASON FOR TESTING: dyspnea PULMONARY FUNCTION TESTS Results are reliable and reproducible. Spirometry: pre bronchodilator FEV1 is 1.90 L, lower limit of normal, 75% predicted. Pre bronchodilator FVC is 2.68 L, 83%, normal. FEV1 / FVC ratio 71%, normal. FEF 25-75 is 47%. After bronchodilator FEV1 increases 6%, FVC decreases 2%. These are not statistically significant changes. FEF 25-75 increases 48%, 1.59 L, 70% predicted, now in the normal range. Lung volumes: Total lung capacity 4.78 L, 92%, normal. Residual volume 1.84 L, 89%, normal. RV/TLC 38%, normal. Diffusion: DLCO 9.4, 43% predicted, severely decreased. DLCO/VA is 2.42, 55%, moderately decreased. Flow volume loop: Not reproducible IMPRESSION: This study shows a small airways pattern with good response to bronchodilator, normal lung volumes and a moderately severe diffusion impairment that does not fully correct for alveolar volume. Lack of response to bronchodilator should not preclude use of clinically indicated. Maria Del Carmen Mccullough MD
--- NOTE | 2023-01-04 21:01 | WPDSIXMINUTE ---
Six Minute Walk Procedure Procedure Performed Pulmonary Stress Test (6 min walk) Six Minute Walk Six Minute Walk: DATE OF SERVICE: 12/31/2022 SIX MINUTE WALK This study was conducted per ATS guidelines. This test was conducted while the patient was breathing room air. The initial saturation is 98% and the initial pulse is 110 beats per minute. Patient did not desaturate. Saturation was maintained between 95 % and 99%. Pulse increased to a maximum 129 beats per minute. The patient did not stop during the test. Distance walked was 457 m / 1500 feet. This is within the normal range. IMPRESSION: This study does not show desaturation and indicates the patient does not require supplemental oxygen with exertion. Distance walked is adequate for age. The patient had a resting tachycardia 110 beats per minute at the start of the study and this remained elevated, 120 beats per minute after recovery. Clinical correlation is recommended.
== END 2022-12-31 12:18 | disposition home or self-care (01) ==
LOC: ANHPFT 12:18
PROVIDERS: PCP Physician Assistant; Visit Provider Internal Medicine Critical Care Medicine
DX: C34.90 Malignant neoplasm of unspecified part of unspecified bronchus or lung (principal); J44.9 Chronic obstructive pulmonary disease, unspecified; R06.02 Shortness of breath; R94.2 Abnormal results of pulmonary function studies
CPT/HCPCS: 94060; 94618; 94726; 94729

== ENCOUNTER 2023-01-29 17:30 | Emergency (ER) | payer BC, MEDICAID, SELFPAY ==
--- NOTE | ~2023-01-29 | CT_ITS ---
EXAMINATION: CTA chest PE protocol DATE: 01/29/2023 19:33 INDICATION: hx lung CA, tachycardia, SOB, R heart strain eCG TECHNIQUE: Computed tomography angiography (CTA) of the chest was performed with 100 mL Omnipaque-350 intravenous contrast timed to evaluate the pulmonary arteries. Coronal maximum intensity projection 3D-reconstructions were created by the technologist. The dose-length product (DLP) was 256.56 mGy-cm. Automated exposure control and iterative reconstruction technique were employed. COMPARISON: X-ray chest, same date; [facility] 12/24/2022. FINDINGS: Lung parenchyma and airways: Paraseptal emphysematous changes in the upper lungs. Minimal diffuse ret iculonodular opacities. Dependent atelectasis. Cluster of the left upper lobe nodules, similar to sli ghtly smaller in size. Pleura: Unremarkable. Thoracic inlet, axillae and chest wall: Right breast augmentation/reconstruction. Left chest port. 8m m subcutaneous soft tissue nodule in the midline upper back. Thoracic aorta: Mild arch calcification. Mediastinum: Left hilar and mediastinal lymphadenopathy, encasing the left main pulmonary artery and left-sided bronchi, smaller than the prior study.. Heart and pericardium: Normal. Coronary artery calcifications: Mild. Upper abdomen: No significant finding. Bones: No acute osseous finding. Stable mild height loss and sclerosis at T3. Stable moderate height loss at T9. Pulmonary arteries: Study quality: Adequate. No pulmonary emboli detected. IMPRESSION: No CT evidence of acute pulmonary embolus. Decreasing size of the mediastinal and left hilar lymphade nopathy, clustered left upper lobe nodules and midline back subcutaneous nodule, likely representing interval treatment response. Reviewed, dictated and finalized at location K. IMPRESSION: No CT evidence of acute pulmonary embolus. Decreasing size of the mediastinal a nd left hilar lymphadenopathy, clustered left upper lobe nodules and midline ba ck subcutaneous nodule, likely representing interval treatment response.
--- NOTE | ~2023-01-29 | XR_ITS ---
EXAMINATION: XR chest 2V Exam Date/Time: 01/29/2023 15:34 CDT HISTORY: HX CANCER, WEAKNESS, SOB FOR 3 DAYS NOT GETTING BETTER Comparison: 12/24/2022. RESULT: Lines, tubes, and devices: Left chest port terminating at the cavoatrial junction. Bilateral axillar y clips. Lungs and pleura: Diffuse moderate reticulonodular opacities. Cardiomediastinal silhouette: Stable. Other: No acute osseous or upper abdominal finding. IMPRESSION: Pulmonary opacities may represent bronchiolitis, as can be seen with atypical infection, asthma, aspi ration, and small airways disease. Reviewed, dictated and finalized at location K. IMPRESSION: Pulmonary opacities may represent bronchiolitis, as can be seen with atypical i nfection, asthma, aspiration, and small airways disease.
[2023-01-29 15:10] VITALS: BP 134/86; PULSE 118; RESP 18; TEMP 36.6; O2SAT 100
--- NOTE | 2023-01-29 15:12 | ECG_ITS ---
Measurements Intervals [place] Rate: 110 P: 55 HI: 183 QRS: 52 QRSD: 86 T: 61 QT: 314 QTc: 426 Interpretive Statements SINUS TACHYCARDIA LOW QRS VOLTAGE IN PRECORDIAL LEADS [QRS DEFLECTION < 1.0 mV IN CHEST LEADS] POSSIBLE RIGHT VENTRICULAR CONDUCTION DELAY [RSR (QR) IN V1/V2] ABNORMAL RHYTHM ECG COMPARED TO ECG 12/24/2022 15:52:36 NO SIGNIFICANT CHANGES Electronically Signed On 01-30-2023 7:44:34 CDT by Nav Arias M.D.
--- NOTE | 2023-01-29 17:28 | ED.GENADULT ---
HPI - General Adult General Chief complaint: Weakness Stated complaint: WEAKNESS ON CHEMO FOR LUNG CA Time Seen by Provider: 01/29/23 17:16 History of Present Illness HPI narrative: 62-year-old female with a history of lung cancer, on chemotherapy, COPD, former smoker, here due to generalized weakness. Patient says that she has been feeling weak 3 days ago, contacted her practitioner who encouraged her to push fluids. Patient has been doing this but states that she still feels weak and lightheaded with position changes. She denies any pain, fevers, cough, shortness of breath, nausea, vomiting or abdominal pain. She had no pain with urination. She also reports lots of anxiety, she recently was diagnosed with terminal lung cancer and is on palliative chemo. Related Data Home Medications Medication Instructions Recorded Confirmed metoprolol succinate 25 mg 25 mg PO HS 02/05/21 01/13/23 tablet,extended release 24 hr quetiapine 300 mg tablet 300 mg PO HS 02/05/21 01/13/23 guaifenesin 600 mg tablet, 600 mg PO HS 12/03/22 01/13/23 extended release 12 hr (Mucinex) omeprazole magnesium 20 mg 20 mg PO HS 12/03/22 01/13/23 tablet,delayed release (Prilosec OTC) fluticasone fur. 100 mcg-umeclid 1 inh inhalation DAILY 12/06/22 01/13/23 62.5 mcg-vilant 25 mcg inhalat.powder (Trelegy Ellipta) prochlorperazine maleate 10 mg 10 mg PO Q6H 01/12/23 01/13/23 tablet Allergies Allergy/AdvReac Type Severity Reaction Status Date / Time Sulfa (Sulfonamide Allergy Severe Difficulty Verified 01/29/23 17:24 Antibiotics) Breathing Review of Systems Review of Systems: Gen.: Reports weakness Eyes: Denies eye pain or visual change ENT: Denies congestion Respiratory: Denies shortness of breath or cough CV: Denies chest pain or palpitations GI: Denies abdominal pain nausea, emesis or diarrhea denies burning, urgency, frequency or hematuria Musculoskeletal: Denies back pain or muscle pain Neuro: Denies numbness, tingling, weakness or focal weakness Skin: Denies rash Except as documented, all other systems reviewed and negative PMF Past Medical History Medical History Alcohol use Anxiety Cancer of left breast Status post bilateral mastectomy and chemoradiation. Chronic obstructive pulmonary disease Depression Dyslipidemia Hypertension Tobacco abuse Surgical History Surgical History History of bilateral mastectomy History of hysterectomy History of tonsillectomy Family History Family History Mother Diabetes mellitus Grandparent Diabetes mellitus Social History Social History (Updated 12/26/22 @ 16:11 by Maame Tyler PA-C) Social History: Surrogate decision maker: Cyndee Cobos, daughter. Code status: Full code. Smoking packs per day: 1 Smoking cigarettes per day: 20.0 Years smoked: 45 Smoking pack-years: 45.00 Smoking status: Former smoker Tobacco type: cigarettes Second hand tobacco smoke exposure: No Smoking end date: 11/02/22 Additional smoking assessment comments: Down to a few cigarettes a day since lung cancer diagnosis. Alcohol intake: former Drinks per week: 14 Alcohol use details: No alcohol since lung cancer diagnosis. Substance use: never Substance use type: does not use Lack of Transportation: No Lack of Food: Never True Current Housing: I Have Housing Concerned About Future Housing: No Difficulty Paying Gas/Electric Bills: No Difficulty Paying for Meds: No Currently Unemployed: No Education: Trade/Vocational Certificate Difficulty w/ Childcare or Family Care: No Living arrangements: alone Additional living arrangements comments: The patient lives in [place]. 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 Spiritual care c
[2023-01-29] MEDS: LORazepam (*CRX) 0.5 MG TABLET PO (17:36)
[2023-01-29 17:54] LABS: Appearance Urine Clear (Clear); Bilirubin Urine Negative (Negative); Blood Urine Negative (Negative); Color Urine Yellow (Yellow); Glucose Urine UA Negative (Negative); Ketones Urine Negative (Negative); Leukocyte Esterase Ur Negative LEU/UL (Negative); Nitrate Urine Negative (Negative); Protein Urine Negative (Negative); Specific Grav Ur 1.004 (1.001-1.035); Urobilinogen Urine 0.2 mg/dL (<2.0)
[2023-01-29] MEDS: SODIUM CHLORIDE 0.9% IV 1,000 ML 999 ML IV CONT (18:04)
[2023-01-29 18:11] LABS: Eosinophils Percent Auto 0.2 % (0-4.4); Hematocrit 25.5 % (37.0-47.0); Immature Granulocyte Absolute 0.02 K/mm3 (0.00-0.031); Immature Granulocyte Percent A 0.5 % (0-0.5); Immature Platelet Fraction Pct 3.8 % (0.9-11.2); Lymphocytes Absolute Auto 2.76 K/mm3 (0.9-3.2); Lymphocytes Percent Auto 67.2 % (18.3-44.2); Mean Corpuscular HGB Conc 35.3 g/dl (32-36); Mean Corpuscular Hemoglobin 32.5 pg (26-34); Mean Corpuscular Volume 92.1 fl (80-100); Monocytes Absolute Auto 0.4 K/mm3 (0.1-0.6); Neutrophils Absolute Auto 0.9 K/mm3 (1.3-6.7); Neutrophils Percent Auto 22.1 % (45.5-73.1); Platelet Count Result 64 k/mm3 (150-375); Red Blood Count 2.77 M/mm3 (4.2-5.4); Red Cell Distribution Width 13.5 % (11.5-14.5); White Blood Count 4.1 K/mm3 (4.5-10.0)
[2023-01-29 18:23] LABS: Alanine Aminotransferase 23 U/L (6-35); Albumin Level 4.5 g/dL (3.5-5.1); Alkaline Phosphatase 81 U/L (38-126); Anion Gap 9 mmol/L (8-16); Aspartate Amino Transferase 25 U/L (14-36); Bilirubin,Total 0.5 mg/dL (0.2-1.3); Blood Urea Nitrogen 5 mg/dL (7-17); Carbon Dioxide 24 mmol/L (22-30); Chloride 95 mmol/L (98-107); Estimated CRCL calculation 108 ml/min; Estimated Glomerular Filt Rate > 60; Glucose 96 mg/dL (65-110); Lactic Acid Reflex 1.7 mmol/L (0.7-2.0); Sodium 128 mmol/L (137-145)
[2023-01-29 18:28] LABS: Influenza A QL RT-PCR Negative (Negative); Influenza B QL RT-PCR Negative (Negative); SARS-CoV-2 RNA PCR Negative (Negative)
[2023-01-29 18:34] LABS: Anisocytosis 1+ (NORMAL); Ovalocytes 1+ (NORMAL); Platelet Estimate Decreased (Adequate); Schistocytes None Seen (NORMAL)
[2023-01-29] MEDS: LORazepam INJ (*CRX) 2 MG/ML VIAL 1 MG IV PUSH (18:37)
[2023-01-29 18:41] LABS: Add Urine Microscopic? NO
[2023-01-29 19:35] VITALS: BP 152/93; PULSE 108; RESP 18; O2SAT 100
[2023-01-29 19:46] VITALS: BP 147/83; PULSE 106; RESP 16; O2SAT 99
[2023-01-29 20:01] VITALS: BP 156/94; PULSE 113; RESP 12; O2SAT 98
[2023-01-29 20:16] VITALS: BP 147/82; RESP 18; O2SAT 99
[2023-01-29] MEDS: POTASSIUM CHLORIDE 20 MEQ TABLET PO (20:39)
[2023-01-29 21:00] VITALS: BP 129/87; PULSE 112; RESP 16; O2SAT 99
== END 2023-01-29 21:05 | disposition home or self-care (01) ==
PROVIDERS: Emergency Medicine; Emergency Provider Physician Assistant; PCP Physician Assistant
DX: F43.0 Acute stress reaction (principal); E86.0 Dehydration; E87.6 Hypokalemia; Z20.822 Contact with and (suspected) exposure to COVID-19; J44.9 Chronic obstructive pulmonary disease, unspecified; C34.90 Malignant neoplasm of unspecified part of unspecified bronchus or lung; I10 Essential (primary) hypertension; E78.5 Hyperlipidemia, unspecified; F41.9 Anxiety disorder, unspecified; F32.A Depression, unspecified; Z85.3 Personal history of malignant neoplasm of breast; Z87.891 Personal history of nicotine dependence; Z90.13 Acquired absence of bilateral breasts and nipples; Z90.710 Acquired absence of both cervix and uterus; Z79.899 Other long term (current) drug therapy; R00.0 Tachycardia, unspecified; R94.31 Abnormal electrocardiogram [ECG] [EKG]; R91.8 Other nonspecific abnormal finding of lung field
CPT/HCPCS: 36415; 71046; 71275; 80053; 81003; 83605; 85025; 85055; 87040; 87636; 93005; 96361; 96374; 99284; A9270; J2060; J7030; Q9967

== ENCOUNTER 2023-02-03 07:42 | Outpatient (RCR) | payer BC, MEDICAID, SELFPAY ==
[2023-02-03] VITALS (7 sets, daily range): BP systolic 102–127; BP diastolic 72–92; PULSE 101–112; RESP 12–16; TEMP 36.2–36.6; O2SAT 97–99
[2023-02-03] MEDS: diphenhydrAMINE HCl CAP 25 MG CAPSULE PO (08:01)
[2023-02-03] MEDS: SODIUM CHLORIDE 0.9% IV 250 ML 30 ML IV CONT (08:01)
[2023-02-03] MEDS: ACETAMINOPHEN 325 MG TABLET 650 MG PO (08:01)
[2023-02-03] MEDS: HEPARIN SODIUM LOCK FLUSH 500 UNITS/5 ML VIAL (12:42)
--- NOTE | 2023-02-03 12:58 | PC.NURSE ---
1 unit of PRBC transfused. no complications. pt educated on delayed reaction signs and symptoms. discharge instructions talked over with patient. patient walked out by RN.
== END 2023-05-04 23:59 | disposition home or self-care (01) ==
LOC: ANHCPCTRAN 07:42
PROVIDERS: PCP Physician Assistant; Visit Provider Internal Medicine Hematology & Oncology
DX: D64.81 Anemia due to antineoplastic chemotherapy (principal); C34.90 Malignant neoplasm of unspecified part of unspecified bronchus or lung
CPT/HCPCS: 36415; 36430; 86850; 86900; 86901; 86923; A9270; J1642; J7050; P9016

== ENCOUNTER 2023-02-23 13:22 | Inpatient (IN) | payer MEDICAID, SELFPAY ==
[2023-02-23] VITALS (39 sets, daily range): BP systolic 81–131; BP diastolic 56–87; PULSE 100–140; RESP 13–33; TEMP 36.1–37.2; O2SAT 92–100; BMI 25.6
--- NOTE | ~2023-02-23 | CT_ITS ---
EXAMINATION: CTA chest PE protocol DATE: 02/28/2023 14:19 INDICATION: Shortness of breath TECHNIQUE: Computed tomography angiography (CTA) of the chest was performed with 100 mL Omnipaque-350 intravenous contrast timed to evaluate the pulmonary arteries. Coronal maximum intensity projection 3D-reconstructions were created by the technologist. The dose-length product (DLP) was 252.86 mGy-cm. Automated exposure control and iterative reconstruction technique were employed. COMPARISON: 01/29/2023, x-ray chest 02/27/2023. FINDINGS: Lung parenchyma and airways: Paraseptal emphysematous changes. Centrilobular nodular and acinar opaci ties in the right upper and lower lobes. Bibasilar atelectasis/scar. Slightly decreased size of the c luster of nodules in the left upper lobe. Pleura: Unremarkable. Thoracic inlet, axillae and chest wall: Right breast implant. Left chest port terminating at the cavo atrial junction. Known subcutaneous nodule in the upper midline back subcutaneous tissues was not inc luded in the [id number]. Thoracic aorta: Mild arch calcification. Mediastinum: Stable mediastinal and hilar lymphadenopathy. Slightly decreased lymphadenopathy in the left hilum and slightly increased in the right hilum. Dilated central pulmonary arteries as can be se en with pulmonary arterial hypertension. Heart and pericardium: Normal. Coronary artery calcifications: Mild. Upper abdomen: No significant finding. Bones: No acute osseous finding. Stable height loss and sclerosis at T3. Stable moderate height loss at T9. Pulmonary arteries: Study quality: Adequate. No pulmonary emboli detected. IMPRESSION: 1. No CT evidence of acute pulmonary embolus. 2. Right upper and lower lobe opacities concerning for respiratory bronchiolitis, airways disease, or atypical infection, possibly with a component of aspiration. Slightly increasing right hilar lymphad enopathy. 3. Continued interval decrease in size of the cluster of left upper lobe nodules and left hilar lymph adenopathy. Reviewed, dictated and finalized at location K. IMPRESSION: 1. No CT evidence of acute pulmonary embolus. 2. Right upper and lower lobe opacities concerning for respiratory bronchioliti s, airways disease, or atypical infection, possibly with a component of aspirat ion. Slightly increasing right hilar lymphadenopathy. 3. Continued interval decrease in size of the cluster of left upper lobe nodule s and left hilar lymphadenopathy.
--- NOTE | ~2023-02-23 | XR_ITS ---
Portable chest x-ray Comparison: 02/23/2023 Clinical History: Shortness of breath Findings: Left-sided Mediport is in place. There is hazy and interstitial disease in the right lung, possible minimal interstitial prominence the left lung base. Cardiomediastinal silhouette is stable . Bones and soft tissues are unremarkable. Impression: Left-sided Mediport in place. Worsening hazy and interstitial disease predominantly in the right lung. Correlate for asymmetric pul monary edema or infection. Reviewed, dictated and finalized at location . Impression: Left-sided Mediport in place. Worsening hazy and interstitial disease predominantly in the right lung. Correl ate for asymmetric pulmonary edema or infection.
--- NOTE | ~2023-02-23 | XR_ITS ---
EXAMINATION: XR chest 1V portable Exam Date/Time: 02/27/2023 16:12 CDT HISTORY: shortness of breath IS INCREASING AND CAME ON SUDDENLY Comparison: 02/24/2023. RESULT: Lines, tubes, and devices: Left chest port terminating at the cavoatrial junction. Left axillary ismael gical clips. Lungs and pleura: Worsening segmental areas of groundglass and nodular opacities in the right upper and lower lungs. Clustered nodular opacities in the left upper lung. Worsening diffuse reticular opac ities. Cardiomediastinal silhouette: Stable. Other: No acute osseous or upper abdominal finding. IMPRESSION: Worsening pulmonary edema, with possible alveolar edema versus infection in the right upper and lower lung. Reviewed, dictated and finalized at location K.
--- NOTE | ~2023-02-23 | XR_ITS ---
EXAMINATION: XR chest 2V DATE: 02/23/2023 14:14 INDICATION: Shortness of breath. TECHNIQUE: Frontal and lateral views of the chest were obtained. COMPARISON: Chest 2 views 01/29/2023, chest CT 01/29/2023 FINDINGS: There is a nodule in left upper lobe. No pleural effusion or pneumothorax. The heart size i s normal. There is a left internal jugular port with tip at superior cavoatrial junction. There are s urgical clips in left axilla. IMPRESSION: 1. Stable nodule in left lung upper lobe, consistent with primary bronchogenic carcinoma. Reviewed, dictated and finalized at location A.
--- NOTE | 2023-02-23 13:34 | ECG_ITS ---
Measurements Intervals [place] Rate: 127 P: 55 MN: 176 QRS: 68 QRSD: 78 T: 69 QT: 304 QTc: 443 Interpretive Statements SINUS TACHYCARDIA INCOMPLETE RIGHT BUNDLE BRANCH BLOCK LOW QRS VOLTAGE IN PRECORDIAL LEADS BASELINE ARTIFACT- I, III, AVR, AVL ABNORMAL ECG COMPARED TO ECG 01/29/2023 16:20:09 NO SIGNIFICANT CHANGES Electronically Signed On 02-25-2023 11:47:58 CDT by Brandyn Moore D.O.
[2023-02-23 14:00] LABS: Hematocrit 27.5 % (37.0-47.0); Hemoglobin 9.7 g/dL (12.0-15.0); Red Blood Count 2.94 M/mm3 (4.2-5.4)
[2023-02-23 14:01] LABS: Basophils Percent Auto 2.4 % (0.2-1.2); Immature Granulocyte Absolute 0.01 K/mm3 (0.00-0.031); Immature Granulocyte Percent A 1.2 % (0-0.5); Lymphocytes Absolute Auto 0.66 K/mm3 (0.9-3.2); Lymphocytes Percent Auto 77.6 % (18.3-44.2); Mean Corpuscular HGB Conc 35.3 g/dl (32-36); Mean Corpuscular Volume 93.5 fl (80-100); Mean Platelet Volume 9.5 fl (7.4-10.4); Monocytes Percent Auto 2.4 % (2.6-8.5); Neutrophils Absolute Auto 0.1 K/mm3 (1.3-6.7); Neutrophils Percent Auto 16.4 % (45.5-73.1); Platelet Count Result 122 k/mm3 (150-375); Red Cell Distribution Width 17.3 % (11.5-14.5)
--- NOTE | 2023-02-23 14:03 | ED.RECABL ---
HPI - Recheck/Abnormal Lab/Rx General Chief Complaint: Recheck/Abnormal Lab/Rx Stated Complaint: low BP Time Seen by Provider: 02/23/23 13:38 History of Present Illness HPI narrative: Patient is a 62-year-old female with a history of lung cancer on palliative chemo, COPD presenting with generalized weakness. Patient states that she completed 3 days of chemotherapy last week. Since that time she has been increasingly nauseated. States that she has had very little appetite. States that she was able to keep down fluids until yesterday when she had an episode of emesis. States that she has been checking her vitals at home and her heart rate has been going up to the 130s and her blood pressures have been as low as 80 systolic. States that last night she took her nightly Seroquel and mirtazapine and she felt so sedated that she had to army crawl to her bathroom. She denies any pain. No chest pain, abdominal pain, back pain. No dysuria or hematuria. Reports chronic shortness of breath. No numbness or focal weakness. No vision or speech changes. No diarrhea. No leg swelling. Her oncologist is Dr. Cottrell. Related Data Home Medications Medication Instructions Recorded Confirmed quetiapine 300 mg tablet 300 mg PO HS 02/05/21 02/24/23 guaifenesin 600 mg tablet, 600 mg PO HS 12/03/22 02/24/23 extended release 12 hr (Mucinex) fluticasone fur. 100 mcg-umeclid 1 inh inhalation DAILY 12/06/22 02/24/23 62.5 mcg-vilant 25 mcg inhalat.powder (Trelegy Ellipta) metoprolol succinate 25 mg 12.5 mg PO DAILY 02/08/23 02/24/23 tablet,extended release 24 hr mirtazapine 15 mg tablet 15 mg PO QHS 02/08/23 02/24/23 multivitamin 1 tablet PO DAILY 02/15/23 02/23/23 ondansetron 4 mg disintegrating 8 mg PO Q6H PRN nausea and vomiting 02/23/23 02/23/23 tablet Allergies Allergy/AdvReac Type Severity Reaction Status Date / Time Sulfa (Sulfonamide Allergy Severe Difficulty Verified 02/23/23 13:35 Antibiotics) Breathing Review of Systems Review of Systems: All systems reviewed & are unremarkable except as noted in HPI and below PMFSH Past Medical History Medical History Alcohol use Anxiety Cancer of left breast Status post bilateral mastectomy and chemoradiation. Chronic obstructive pulmonary disease Depression Dyslipidemia Hypertension Tobacco abuse Surgical History Surgical History History of bilateral mastectomy History of hysterectomy History of tonsillectomy Family History Family History Mother Diabetes mellitus Grandparent Diabetes mellitus Social History Social History Social History: Surrogate decision maker: Cyndee Cobos, daughter. Code status: Full code. Smoking packs per day: 1 Smoking cigarettes per day: 20.0 Years smoked: 45 Smoking pack-years: 45.00 Smoking status: Former smoker Tobacco type: cigarettes Second hand tobacco smoke exposure: No Additional smoking assessment comments: Down to a few cigarettes a day since lung cancer diagnosis. Alcohol intake: former Drinks per week: 14 Alcohol use details: No alcohol since lung cancer diagnosis. Substance use: never Substance use type: does not use Lack of Transportation: No Lack of Food: Never True Current Housing: I Have Housing Concerned About Future Housing: No Difficulty Paying Gas/Electric Bills: No Difficulty Paying for Meds: No Currently Unemployed: No Education: Trade/Vocational Certificate Difficulty w/ Childcare or Family Care: No Living arrangements: alone Additional living arrangements comments: The patient lives in [place]. 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 Spiritual care concerns: No Exam Narrative: GENERAL: Chronic
[2023-02-23 14:12] LABS: Alanine Aminotransferase 22 U/L (6-35); Albumin Level 4.1 g/dL (3.5-5.1); Alkaline Phosphatase 67 U/L (38-126); Anion Gap 9 mmol/L (8-16); Aspartate Amino Transferase 24 U/L (14-36); Bilirubin,Total 0.5 mg/dL (0.2-1.3); Blood Urea Nitrogen 15 mg/dL (7-17); Calcium 8.5 mg/dL (8.4-10.2); Carbon Dioxide 28 mmol/L (22-30); Chloride 88 mmol/L (98-107); Estimated CRCL calculation 65 ml/min; Estimated Glomerular Filt Rate > 60; Glucose 107 mg/dL (65-110); Potassium 3.1 mmol/L (3.4-5.0); Sodium 125 mmol/L (137-145)
[2023-02-23] MEDS: ONDANSETRON INJ 4 MG/2 ML VIAL IV PUSH ×2 (14:17→18:37)
[2023-02-23] MEDS: SODIUM CHLORIDE 0.9% IV 1,000 ML 999 ML IV CONT ×2 (14:17)
[2023-02-23 14:25] LABS: White Blood Count 0.9 K/mm3 (4.5-10.0)
[2023-02-23 14:28] LABS: Platelet Estimate Adequate (Adequate)
[2023-02-23 14:29] LABS: Anisocytosis 1+ (NORMAL); Atypical Lymphocytes Present; Ovalocytes 1+ (NORMAL); Schistocytes None Seen (NORMAL)
[2023-02-23 14:55] LABS: Lipase 88 U/L (23-300)
[2023-02-23] MEDS: LOPERAMIDE HCL 2 MG CAPSULE 4 MG PO (15:12)
[2023-02-23 16:10] LABS: Appearance Urine Clear (Clear); Bilirubin Urine Negative (Negative); Blood Urine Negative (Negative); Color Urine Yellow (Yellow); Glucose Urine UA Negative (Negative); Ketones Urine Negative (Negative); Leukocyte Esterase Ur Negative LEU/UL (Negative); Nitrate Urine Negative (Negative); Protein Urine Negative (Negative); Specific Grav Ur 1.008 (1.001-1.035); Urobilinogen Urine 0.2 mg/dL (<2.0)
[2023-02-23 16:18] LABS: Add Urine Microscopic? NO
[2023-02-23] MEDS: LACTATED RINGERS 1,000 ML 150 ML IV CONT (16:38)
[2023-02-23] MEDS: ACETAMINOPHEN 500 MG TABLET 1000 MG PO ×2 (16:43→22:26)
[2023-02-23] MEDS: POTASSIUM CHLORIDE INJ 40 MEQ in SODIUM CHLORIDE 0.9% IV 500 ML 130 MEQ IVPB (16:43)
[2023-02-23] MEDS: LOPERAMIDE HCL 2 MG CAPSULE PO ×3 (16:44→21:08)
--- NOTE | 2023-02-23 16:47 | PM.IMHP ---
H&P: HPI History of Present Illness Date/Time: 02/23/23 16:47 Chief Complaint: weakness, nausea, vomiting Narrative: Patient is a 62-year-old female with a history of lung cancer on palliative chemo, COPD presenting with generalized weakness.? Patient states that she completed 3 days of chemotherapy last week.? Since that time she has been increasingly nauseated.? States that she has had very little appetite.? States that she was able to keep down fluids until yesterday when she had an episode of emesis.? States that she has been checking her vitals at home and her heart rate has been going up to the 130s and her blood pressures have been as low as 80 systolic.? No chest pain, abdominal pain, back pain.? No dysuria or hematuria.? Reports chronic shortness of breath.? No numbness or focal weakness.? No vision or speech changes.? No diarrhea.? No leg swelling.? in ED she was found to be neutropenic and hypokalemic and hypotensive. Review of Systems Review of Systems: negative other than [facility]PI [facility] Past Medical History Medical History Alcohol use Anxiety Cancer of left breast Status post bilateral mastectomy and chemoradiation. Chronic obstructive pulmonary disease Depression Dyslipidemia Hypertension Tobacco abuse Surgical History Surgical History History of bilateral mastectomy History of hysterectomy History of tonsillectomy Family History Family History Mother Diabetes mellitus Grandparent Diabetes mellitus Social History Social History Social History: Surrogate decision maker: Cyndee Cobos, daughter. Code status: Full code. Smoking packs per day: 1 Smoking cigarettes per day: 20.0 Years smoked: 45 Smoking pack-years: 45.00 Smoking status: Former smoker Tobacco type: cigarettes Second hand tobacco smoke exposure: No Smoking end date: 11/02/22 Additional smoking assessment comments: Down to a few cigarettes a day since lung cancer diagnosis. Alcohol intake: former Drinks per week: 14 Alcohol use details: No alcohol since lung cancer diagnosis. Substance use: never Substance use type: does not use Lack of Transportation: No Lack of Food: Never True Current Housing: I Have Housing Concerned About Future Housing: No Difficulty Paying Gas/Electric Bills: No Difficulty Paying for Meds: No Currently Unemployed: No Education: Trade/Vocational Certificate Difficulty w/ Childcare or Family Care: No Living arrangements: alone Additional living arrangements comments: The patient lives in [place]. 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 Spiritual care concerns: No Meds Home Medications and Allergies Home Medications Medication Instructions Recorded Confirmed Type quetiapine 300 mg tablet 300 mg PO HS 02/05/21 02/16/23 History albuterol sulfate 90 mcg/actuation 2 puff inhalation Q6HRT PRN 02/07/21 02/16/23 Rx aerosol inhaler (Proventil HFA) Shortness Of Breath #1 g albuterol sulfate 2.5 mg/3 mL 2.5 mg (3 mL) inhalation Q4-6H PRN 11/18/22 02/16/23 Rx (0.083 %) solution for nebulization shortness of breath or wheezing #180 mL lorazepam 1 mg tablet (Ativan) 1 mg PO BID PRN anxiety #30 tabs 11/18/22 02/16/23 Rx ibuprofen 400 mg tablet 400 mg PO TID PRN fever or pain 10 12/01/22 02/16/23 Rx days #30 tabs guaifenesin 600 mg tablet, 600 mg PO HS 12/03/22 02/16/23 History extended release 12 hr (Mucinex) fluticasone fur. 100 mcg-umeclid 1 inh inhalation DAILY 12/06/22 02/16/23 History 62.5 mcg-vilant 25 mcg inhalat.powder (Trelegy Ellipta) ondansetron 4 mg disintegrating 4 mg PO Q8H PRN nausea and 12/25/22 02/16/23 Rx tablet vomiting #30 tabs prochlorperazine maleate 10 mg 10 mg
[2023-02-23] MEDS: POTASSIUM CHLORIDE 20 MEQ TABLET 40 MEQ PO (17:08)
--- NOTE | 2023-02-23 17:20 | PC.NURSE ---
bp 77/46 hr 120. pt cleansed of another small bm. lactated ringers running wide open. pending transport to floor
--- NOTE | 2023-02-23 18:11 | ADMGEN ---
This patient, Shelby Mera, was admitted to Medical Room 241-. Patient/family oriented to hospital policies and general routines including ID bracelet, bed and alarms, visiting hours, pain management, procedures, bathroom and other care routines, personal items, smoking policy, room service/diet, and visiting hours. Information on how to activate the Rapid Response Team has been discussed. Patient/Family are encouraged to report perceived risks to care and to ask questions if they do not understand what they are told or what they should do.
[2023-02-23] MEDS: SODIUM CHLORIDE 0.9% IV 250 ML BAG 500 ML IVPB (21:00)
[2023-02-23] MEDS: SODIUM CHLORIDE 0.9% IV 1,000 ML 75 ML IV CONT (21:09)
[2023-02-24] VITALS (23 sets, daily range): BP systolic 90–109; BP diastolic 46–70; PULSE 79–124; RESP 16–22; TEMP 37.1–38; O2SAT 94–100; BMI 25.6
[2023-02-24] MEDS: LOPERAMIDE HCL 2 MG CAPSULE PO ×2 (00:06→03:39)
[2023-02-24] MEDS: SODIUM CHLORIDE 0.9% IV 1,000 ML 999 ML IV CONT (00:45)
[2023-02-24] MEDS: ONDANSETRON INJ 4 MG/2 ML VIAL IV PUSH (00:46)
[2023-02-24] MEDS: ACETAMINOPHEN 500 MG TABLET 1000 MG PO ×2 (03:39→20:30)
[2023-02-24 04:25] LABS: Immature Platelet Fraction Pct 1.5 % (0.9-11.2); Lymphocytes Absolute Auto 0.94 K/mm3 (0.9-3.2); Lymphocytes Percent Auto 92.2 % (18.3-44.2); Mean Corpuscular HGB Conc 33.3 g/dl (32-36); Mean Corpuscular Hemoglobin 32.2 pg (26-34); Mean Corpuscular Volume 96.7 fl (80-100); Mean Platelet Volume 9.4 fl (7.4-10.4); Neutrophils Percent Auto 3.8 % (45.5-73.1); Platelet Count Result 90 k/mm3 (150-375); Red Blood Count 2.14 M/mm3 (4.2-5.4); Red Cell Distribution Width 17.6 % (11.5-14.5)
[2023-02-24 04:33] LABS: Hematocrit 20.7 % (37.0-47.0); Hemoglobin 6.9 g/dL (12.0-15.0)
[2023-02-24 04:43] LABS: Lactic Acid Reflex 0.6 mmol/L (0.7-2.0)
[2023-02-24 04:45] LABS: Anion Gap 5 mmol/L (8-16); Blood Urea Nitrogen 8 mg/dL (7-17); Carbon Dioxide 21 mmol/L (22-30); Chloride 105 mmol/L (98-107); Estimated CRCL calculation 89 ml/min; Estimated Glomerular Filt Rate > 60; Glucose 90 mg/dL (65-110); Potassium 3.5 mmol/L (3.4-5.0); Sodium 131 mmol/L (137-145)
[2023-02-24 04:48] LABS: Anisocytosis 1+ (NORMAL); Hypochromasia 1+ (NORMAL); Poikilocytosis 1+ (NORMAL); Schistocytes None Seen (NORMAL)
[2023-02-24] MEDS: MAGNESIUM SULF 4 GM/WATER100ML 4 GM/100 ML BAG IVPB (07:56)
[2023-02-24] MEDS: LEVALBUTEROL NEB 1.25 MG/3 ML INHALATION ×2 (09:02→14:02)
[2023-02-24] MEDS: FUROSEMIDE INJ 40 MG/4 ML VIAL 10 MG IV PUSH (09:15)
[2023-02-24] MEDS: SODIUM CHLORIDE 0.9% IV 250 ML 30 ML IV CONT (09:29)
[2023-02-24] MEDS: FILGRASTIM-SNDZ 480 MCG/0.8 ML SYRINGE SUB-Q (13:47)
--- NOTE | 2023-02-24 14:46 | WPDPN ---
Progress Note: A&P Assessment and Plan (1) Neutropenia: Code(s): D70.9 - Neutropenia, unspecified Status: Acute Assessment and Plan: patient has neutropenia and leukopenia. Likely secondary to chemotherapy. Her oncologist Dr. Cottrell has been consulted. She is not febrile. Does not need IV antibiotics 02/24/2023 interval history: 62-year-old female with history of lung cancer seen by oncologist and and had a chemotherapy for 3 days presented emergency depart with complaint weakness nausea and vomiting and found to have leukopenia, upon arrival her white counts were 1000 communicated with her oncologist and started the patient on neopogen 480 mcg q.day and will monitor patient white, patient be seen her oncologist and further recommendation to follow. Patient is dehydrated due to nausea or vomiting and diarrhea patient is being hydrated and be monitor in patient electrolytes and kidney function, will continue to monitor and further recommendation to follow. (2) Hyponatremia: Code(s): E87.1 - Hypo-osmolality and hyponatremia Status: Acute Assessment and Plan: patient received 2 L of NS. We will start on ringer lactate and monitor BMP (3) Dehydration: Code(s): E86.0 - Dehydration Status: Acute Assessment and Plan: continue IV fluids. Monitor BMP (4) Small cell lung cancer: Code(s): C34.90 - Malignant neoplasm of unspecified part of unspecified bronchus or lung Status: Acute Assessment and Plan: patient on palliative chemotherapy. last session was on last (5) Hypokalemia: Code(s): E87.6 - Hypokalemia Status: Acute Assessment and Plan: patient received 40 mEq IV in the ED. will give oral replacement Plan full code DVT prophylaxis Lovenox Subjective Date/time seen: 02/24/23 14:46 Interval history: Chief Complaint: ?weakness, nausea, vomiting HPI-Narrative: Patient is a 62-year-old female with a history of lung cancer on palliative chemo, COPD presenting with generalized weakness.? Patient states that she completed 3 days of chemotherapy last week.? Since that time she has been increasingly nauseated.? States that she has had very little appetite.? States that she was able to keep down fluids until yesterday when she had an episode of emesis.? States that she has been checking her vitals at home and her heart rate has been going up to the 130s and her blood pressures have been as low as 80 systolic.? No chest pain, abdominal pain, back pain.? No dysuria or hematuria.? Reports chronic shortness of breath.? No numbness or focal weakness.? No vision or speech changes.? No diarrhea.? No leg swelling.?? in ED she was found to be neutropenic? and hypokalemic and hypotensive. 02/24/2023 interval history: 62-year-old female with history of lung cancer seen by oncologist and and had a chemotherapy for 3 days presented emergency depart with complaint weakness nausea and vomiting and found to have leukopenia, upon arrival her white counts were 1000 communicated with her oncologist and started the patient on neopogen 480 mcg q.day and will monitor patient white, patient be seen her oncologist and further recommendation to follow. Patient is dehydrated due to nausea or vomiting and diarrhea patient is being hydrated and be monitor in patient electrolytes and kidney function, will continue to monitor and further recommendation to follow. Review of Systems Review of Systems: negative other than HPI Exam Narrative: Patient is comfortable, NAD HEENT: eyes are clear and none icteric LUNGS: Normal respiratory effort ABD: Not distended Lower extremities: no edema SKIN: nonjaundiced Neuro: grossly intact. Objective Data Vital Signs Vital Signs: Vital Signs - 24 hr 02/23/23 15:11 02/23/23 15:15 02/23/23 15:16 Temperature Pulse Rate 123 H 123 H 122 H Respiratory Rate 20 17 20 Blood Pressure 114/79 P
[2023-02-24 16:59] LABS: Hematocrit 25.6 % (37.0-47.0); Hemoglobin 8.8 g/dL (12.0-15.0)
--- NOTE | 2023-02-24 18:58 | PDONCCN ---
[facility] - Date of Consult Date/Time: 02/24/23 18:58 Requesting Physician: William Guevara MD Primary Care Provider: Pema Terry, PA - Consult Narrative Reason for consult: Extensive stage small cell lung cancer Narrative: Shelby Mera is a 62 year old female with diagnosis of extensive stage small cell lung cancer status post biopsy done on November 18, 2022 came back positive. Patient started palliative chemotherapy with cisplatin and [employer] on December 20, 2022. She received cycle 3 of chemotherapy last week. Patient came into the hospital with generalized weakness nausea vomiting. Labs showed WBC count of 0.9 with hemoglobin of 9.7. Sodium was 125. Chest x-ray showed worsening his anus and interstitial disease predominantly in the right lung. She did not receive Neulasta as insurance did not approve Neulasta. She was started on IV hydration but remains quite tired and fatigued. She denies any fevers and chills. Denies any burning in urine and diarrhea. Review of Systems - Review of Systems All systems reviewed & are unremarkable except as noted in [facility] and [facility] Medical History: Medical History (Last Reviewed 02/23/23 @ 16:48 by William Guevara MD) Alcohol use Anxiety Cancer of left breast Status post bilateral mastectomy and chemoradiation. Chronic obstructive pulmonary disease Depression Dyslipidemia Hypertension Tobacco abuse Surgical History: Surgical History (Last Reviewed 02/23/23 @ 14:08 by Shana Pritchard MD) History of bilateral mastectomy History of hysterectomy History of tonsillectomy Family History: Family History (Last Reviewed 02/23/23 @ 18:12 by Beth Person RN) Mother Diabetes mellitus Grandparent Diabetes mellitus - Social History Social History: Social History (Last Reviewed 02/23/23 @ 14:08 by Shana Pritchard MD) Alcohol Use: Alcohol intake: former Drinks per week: 14 Alcohol use details: No alcohol since lung cancer diagnosis. Substance Use: Substance use: never Substance use type: does not use Others: Spiritual care concerns: No Living Arrangements: Living arrangements: alone Smoking Status: Smoking status: Former smoker Tobacco type: cigarettes Second hand tobacco smoke exposure: No Smoking Pack-years: Smoking packs per day: 1 Smoking cigarettes per day: 20.0 Years smoked: 45 Smoking pack-years: 45.00 Comments: Additional smoking assessment comments: Down to a few cigarettes a day since lung cancer diagnosis. Social Determinants of Health: Has the Lack of Transportation Kept You From Medical Appointments or From Getting Medications?: No Within the Past 12 Months, Were You Worried Whether Your Food Would Run Out Before You Got Money to Buy More?: Never True What is Your Housing Situation Today?: I Have Housing Are You Worried That in the Next 2 Months, You May Not Have Your Own Housing to Live In?: No Do You Have Trouble Paying Your Heating Or Electricity Bill?: No Do You Have Trouble Paying For Medicines?: No Are You Currently Unemployed and Looking for Work?: No Highest Level of Education Completed: Trade/Vocational Certific Do You Have Trouble With Childcare or the Care of a Family Member?: No Exam - Vital Signs Vital Signs - 24 hr 02/23/23 20:14 02/23/23 20:32 02/23/23 20:42 Temperature 37.2 C Pulse Rate 100 Respiratory Rate 16 Blood Pressure 81/56 L 88/60 L 95/62 L Pulse Oximetry 97 Oxygen Delivery Fraction of Inspired Oxygen 02/23/23 20:43 02/23/23 20:44 02/24/23 00:10 Temperature 37.7 C H Pulse Rate 118 H 125 H 114 H Respiratory Rate 16 Blood Pressure 101/61 94/59 L 93/51 L Pulse Oximetry 95 Oxygen Delivery Fraction of Inspired Oxygen 02/23/23 20:00 02/24/23 03:27 02/24/23 03:43 Temperature 38.0 C H Pulse Rate 120 H 116 H Respiratory Rate 18 20 Blood Pres
[2023-02-24] MEDS: QUEtiapine FUMARATE 100 MG TABLET 300 MG PO (20:29)
[2023-02-24] MEDS: AMOXICILLIN/CLAVULANATE K 875-125 MG TAB 1 TABLET PO (20:29)
[2023-02-24] MEDS: MIRTAZAPINE 15 MG TABLET PO (20:29)
[2023-02-24] MEDS: guaiFENesin 12 HR 600 MG TABCR PO (20:30)
--- NOTE | 2023-02-24 20:47 | PC.NURSE ---
Noted to be tearful at recent happenings. Patient states she is physically exhausted from treatment. And communicates that she was no longer looking to continue with chemo. Request to not have breathing treatment this evening.
[2023-02-25] VITALS (15 sets, daily range): BP systolic 80–98; BP diastolic 53–61; PULSE 87–119; RESP 14–20; TEMP 36.7–38.1; O2SAT 92–96
--- NOTE | 2023-02-25 06:36 | PC.NURSE ---
PATIENT ADMITTED WITH LEFT CHEST PORT-A-CATH UTILIZED FOR CHEMO ADMINISTRATION. PER PATIENT REQUEST PORT NOT ACCESSED. DOCUMENTATION RELATED TO IV SITE REMOVED ADVISED BY VASCULAR ACCESS NURSEHORACIO.
[2023-02-25] MEDS: ALBUTEROL SULFATE (*SP) AEROSOL 1 PUFF 2 PUFF INHALATION (07:14)
[2023-02-25] MEDS: FLUTICASONE/UMECLIDIN/VILANTER 100-62.5-25 MCG ELLIPTA 1 PUFF INHALATION (07:17)
[2023-02-25 09:33] LABS: Hematocrit 25.9 % (37.0-47.0); Hemoglobin 8.8 g/dL (12.0-15.0); Immature Platelet Fraction Pct 2.9 % (0.9-11.2); Mean Corpuscular Hemoglobin 31.4 pg (26-34); Mean Corpuscular Volume 92.5 fl (80-100); Mean Platelet Volume 9.6 fl (7.4-10.4); Platelet Count Result 73 k/mm3 (150-375); Red Cell Distribution Width 17.5 % (11.5-14.5)
[2023-02-25 09:43] LABS: Alanine Aminotransferase 22 U/L (6-35); Albumin Level 3.5 g/dL (3.5-5.1); Alkaline Phosphatase 49 U/L (38-126); Anion Gap 8 mmol/L (8-16); Aspartate Amino Transferase 27 U/L (14-36); Bilirubin,Total 0.4 mg/dL (0.2-1.3); Blood Urea Nitrogen 9 mg/dL (7-17); Calcium 8.1 mg/dL (8.4-10.2); Carbon Dioxide 27 mmol/L (22-30); Chloride 94 mmol/L (98-107); Estimated CRCL calculation 89 ml/min; Estimated Glomerular Filt Rate > 60; Glucose 125 mg/dL (65-110); Magnesium 1.6 mg/dL (1.6-2.3); Potassium 3.2 mmol/L (3.4-5.0); Sodium 129 mmol/L (137-145)
[2023-02-25 09:49] LABS: White Blood Count 1.3 K/mm3 (4.5-10.0)
[2023-02-25] MEDS: MULTIVITAMINS THERAPEUTIC TAB (*BKC) 1 TABLET PO (09:57)
[2023-02-25] MEDS: FILGRASTIM-SNDZ 480 MCG/0.8 ML SYRINGE SUB-Q (09:57)
[2023-02-25] MEDS: AMOXICILLIN/CLAVULANATE K 875-125 MG TAB 1 TABLET PO ×2 (09:57→20:42)
--- NOTE | 2023-02-25 11:00 | WPDPN ---
Progress Note: A&P Assessment and Plan (1) Neutropenia: Code(s): D70.9 - Neutropenia, unspecified Status: Acute Assessment and Plan: patient has neutropenia and leukopenia. Likely secondary to chemotherapy. Her oncologist Dr. Cottrell has been consulted. She is not febrile. Does not need IV antibiotics 02/25/2023 interval history: 62-year-old female with history of lung cancer seen by oncologist and and had a chemotherapy for 3 days presented emergency depart with complaint weakness nausea and vomiting and found to have leukopenia, upon arrival her white counts were 1000 communicated with her oncologist and started the patient on neopogen 480 mcg q.day and will monitor patient white trending up in today 1300 compared to 1000 upon arrival, patient was seen by her oncologist started the patient on augmentin will monitor and further recommendation to follow. Patient is dehydrated due to nausea or vomiting and diarrhea patient is being hydrated and will monitor patient electrolytes and kidney function, will continue to monitor and further recommendation to follow. (2) Hyponatremia: Code(s): E87.1 - Hypo-osmolality and hyponatremia Status: Acute Assessment and Plan: patient received 2 L of NS. We will start on ringer lactate and monitor BMP (3) Dehydration: Code(s): E86.0 - Dehydration Status: Acute Assessment and Plan: continue IV fluids. Monitor BMP (4) Small cell lung cancer: Code(s): C34.90 - Malignant neoplasm of unspecified part of unspecified bronchus or lung Status: Acute Assessment and Plan: patient on palliative chemotherapy. last session was on last (5) Hypokalemia: Code(s): E87.6 - Hypokalemia Status: Acute Assessment and Plan: patient received 40 mEq IV in the ED. will give oral replacement Plan full code DVT prophylaxis Lovenox Subjective Date/time seen: 02/25/23 11:00 Interval history: Chief Complaint: ?weakness, nausea, vomiting HPI-Narrative: Patient is a 62-year-old female with a history of lung cancer on palliative chemo, COPD presenting with generalized weakness.? Patient states that she completed 3 days of chemotherapy last week.? Since that time she has been increasingly nauseated.? States that she has had very little appetite.? States that she was able to keep down fluids until yesterday when she had an episode of emesis.? States that she has been checking her vitals at home and her heart rate has been going up to the 130s and her blood pressures have been as low as 80 systolic.? No chest pain, abdominal pain, back pain.? No dysuria or hematuria.? Reports chronic shortness of breath.? No numbness or focal weakness.? No vision or speech changes.? No diarrhea.? No leg swelling.?? in ED she was found to be neutropenic? and hypokalemic and hypotensive. 02/25/2023 interval history: 62-year-old female with history of lung cancer seen by oncologist and and had a chemotherapy for 3 days presented emergency depart with complaint weakness nausea and vomiting and found to have leukopenia, upon arrival her white counts were 1000 communicated with her oncologist and started the patient on neopogen 480 mcg q.day and will monitor patient white trending up in today 1300 compared to 1000 upon arrival, patient was seen by her oncologist started the patient on augmentin will monitor and further recommendation to follow. Patient is dehydrated due to nausea or vomiting and diarrhea patient is being hydrated and will monitor patient electrolytes and kidney function, will continue to monitor and further recommendation to follow. Review of Systems Review of Systems: negative other than HPI Exam Narrative: Patient is comfortable, NAD HEENT: eyes are clear and none icteric LUNGS: Normal respiratory effort ABD: Not distended Lower extremities: no edema SKIN: nonjaundiced Neuro: grossly intact.
[2023-02-25] MEDS: NICOTINE (*PBKC) 14 MG PATCH 1 PATCH TRANSDERM (12:24)
[2023-02-25] MEDS: LEVALBUTEROL NEB 1.25 MG/3 ML INHALATION (13:15)
[2023-02-25] MEDS: LOPERAMIDE HCL 2 MG CAPSULE PO ×4 (15:34→20:42)
[2023-02-25] MEDS: MAG HYDROX/AL HYDROX/SIMETH 30 ML UDC PO (16:44)
[2023-02-25] MEDS: ONDANSETRON INJ 4 MG/2 ML VIAL IV PUSH (16:44)
[2023-02-25] MEDS: PANTOPRAZOLE SODIUM IV 40 MG VIAL IV PUSH (16:44)
[2023-02-25] MEDS: ACETAMINOPHEN 500 MG TABLET 1000 MG PO (20:41)
[2023-02-25] MEDS: QUEtiapine FUMARATE 100 MG TABLET 300 MG PO (20:42)
[2023-02-25] MEDS: guaiFENesin 12 HR 600 MG TABCR PO (20:42)
[2023-02-25] MEDS: MIRTAZAPINE 15 MG TABLET PO (20:43)
[2023-02-26] VITALS (14 sets, daily range): BP systolic 86–109; BP diastolic 50–61; PULSE 87–116; RESP 16–18; TEMP 36.8–37.3; O2SAT 92–96
--- NOTE | 2023-02-26 02:28 | PCRCNOTE ---
Patient refused both her 1999 and 199 updraft treatments.
[2023-02-26] MEDS: ONDANSETRON HCL ODT 4 MG TABLET 8 MG PO (06:40)
[2023-02-26 07:03] LABS: Alanine Aminotransferase 32 U/L (6-35); Albumin Level 3.8 g/dL (3.5-5.1); Alkaline Phosphatase 54 U/L (38-126); Anion Gap 10 mmol/L (8-16); Aspartate Amino Transferase 31 U/L (14-36); Bilirubin,Total 0.6 mg/dL (0.2-1.3); Blood Urea Nitrogen 9 mg/dL (7-17); Calcium 8.7 mg/dL (8.4-10.2); Carbon Dioxide 28 mmol/L (22-30); Chloride 95 mmol/L (98-107); Estimated CRCL calculation 75 ml/min; Estimated Glomerular Filt Rate > 60; Glucose 104 mg/dL (65-110); Magnesium 1.7 mg/dL (1.6-2.3); Sodium 133 mmol/L (137-145)
[2023-02-26 07:16] LABS: Basophils Percent Auto 0.7 % (0.2-1.2); Eosinophils Percent Auto 0.7 % (0-4.4); Hematocrit 27.6 % (37.0-47.0); Hemoglobin 9.3 g/dL (12.0-15.0); Immature Granulocyte Absolute 0.02 K/mm3 (0.00-0.031); Immature Granulocyte Percent A 1.3 % (0-0.5); Lymphocytes Absolute Auto 1.36 K/mm3 (0.9-3.2); Lymphocytes Percent Auto 90.1 % (18.3-44.2); Mean Corpuscular HGB Conc 33.7 g/dl (32-36); Mean Corpuscular Hemoglobin 31.6 pg (26-34); Mean Corpuscular Volume 93.9 fl (80-100); Mean Platelet Volume 10.5 fl (7.4-10.4); Monocytes Absolute Auto 0.1 K/mm3 (0.1-0.6); Neutrophils Percent Auto 1.2 % (45.5-73.1); Platelet Count Result 60 k/mm3 (150-375); Red Blood Count 2.94 M/mm3 (4.2-5.4); Red Cell Distribution Width 17.5 % (11.5-14.5)
[2023-02-26 07:17] LABS: Immature Platelet Fraction Pct 3.9 % (0.9-11.2)
[2023-02-26 07:41] LABS: White Blood Count 1.5 K/mm3 (4.5-10.0)
[2023-02-26 07:43] LABS: Anisocytosis 1+ (NORMAL); Burr Cells 1+ (NORMAL); Ovalocytes 1+ (NORMAL); Platelet Estimate Decreased (Adequate); Schistocytes None Seen (NORMAL)
[2023-02-26] MEDS: MULTIVITAMINS THERAPEUTIC TAB (*BKC) 1 TABLET PO (09:50)
[2023-02-26] MEDS: AMOXICILLIN/CLAVULANATE K 875-125 MG TAB 1 TABLET PO ×2 (09:50→20:01)
[2023-02-26] MEDS: FILGRASTIM-SNDZ 480 MCG/0.8 ML SYRINGE SUB-Q (09:50)
[2023-02-26] MEDS: NICOTINE (*PBKC) 14 MG PATCH 1 PATCH TRANSDERM (09:50)
[2023-02-26] MEDS: METOPROLOL SUCCINATE EXT REL 12.5 MG TABCR PO (10:02)
--- NOTE | 2023-02-26 11:14 | WPDPN ---
Progress Note: A&P Assessment and Plan (1) Neutropenia: Code(s): D70.9 - Neutropenia, unspecified Status: Acute Assessment and Plan: patient has neutropenia and leukopenia. Likely secondary to chemotherapy. Her oncologist Dr. Cottrell has been consulted. She is not febrile. Does not need IV antibiotics 02/26/2023 interval history: 62-year-old female with history of lung cancer seen by oncologist and and had a chemotherapy for 3 days presented emergency depart with complaint weakness nausea and vomiting and found to have leukopenia, upon arrival her white counts were 1000 communicated with her oncologist and started the patient on neopogen 480 mcg q.day and will monitor patient white trending up in today 1500 compared to 1000 upon arrival, patient was seen by her oncologist started the patient on augmentin will monitor and further recommendation to follow. Patient is dehydrated due to nausea or vomiting and diarrhea patient is being hydrated and will monitor patient electrolytes and kidney function, will continue to monitor and further recommendation to follow. (2) Hyponatremia: Code(s): E87.1 - Hypo-osmolality and hyponatremia Status: Acute Assessment and Plan: patient received 2 L of NS. We will start on ringer lactate and monitor BMP (3) Dehydration: Code(s): E86.0 - Dehydration Status: Acute Assessment and Plan: continue IV fluids. Monitor BMP (4) Small cell lung cancer: Code(s): C34.90 - Malignant neoplasm of unspecified part of unspecified bronchus or lung Status: Acute Assessment and Plan: patient on palliative chemotherapy. last session was on last (5) Hypokalemia: Code(s): E87.6 - Hypokalemia Status: Acute Assessment and Plan: patient received 40 mEq IV in the ED. will give oral replacement Plan full code DVT prophylaxis Lovenox Subjective Date/time seen: 02/26/23 11:14 Interval history: Chief Complaint: ?weakness, nausea, vomiting HPI-Narrative: Patient is a 62-year-old female with a history of lung cancer on palliative chemo, COPD presenting with generalized weakness.? Patient states that she completed 3 days of chemotherapy last week.? Since that time she has been increasingly nauseated.? States that she has had very little appetite.? States that she was able to keep down fluids until yesterday when she had an episode of emesis.? States that she has been checking her vitals at home and her heart rate has been going up to the 130s and her blood pressures have been as low as 80 systolic.? No chest pain, abdominal pain, back pain.? No dysuria or hematuria.? Reports chronic shortness of breath.? No numbness or focal weakness.? No vision or speech changes.? No diarrhea.? No leg swelling.?? in ED she was found to be neutropenic? and hypokalemic and hypotensive. 02/26/2023 interval history: 62-year-old female with history of lung cancer seen by oncologist and and had a chemotherapy for 3 days presented emergency depart with complaint weakness nausea and vomiting and found to have leukopenia, upon arrival her white counts were 1000 communicated with her oncologist and started the patient on neopogen 480 mcg q.day and will monitor patient white trending up in today 1500 compared to 1000 upon arrival, patient was seen by her oncologist started the patient on augmentin will monitor and further recommendation to follow. Patient is dehydrated due to nausea or vomiting and diarrhea patient is being hydrated and will monitor patient electrolytes and kidney function, will continue to monitor and further recommendation to follow. Review of Systems Review of Systems: negative other than HPI Exam Narrative: Patient is comfortable, NAD HEENT: eyes are clear and none icteric LUNGS: Normal respiratory effort ABD: Not distended Lower extremities: no edema SKIN: nonjaundiced Neuro: grossly intact.
[2023-02-26] MEDS: POTASSIUM CHLORIDE 20 MEQ TABLET 40 MEQ PO ×2 (11:23→17:53)
[2023-02-26] MEDS: LOPERAMIDE HCL 2 MG CAPSULE PO ×3 (18:02→21:38)
[2023-02-26] MEDS: LEVALBUTEROL NEB 1.25 MG/3 ML INHALATION (19:40)
[2023-02-26] MEDS: QUEtiapine FUMARATE 100 MG TABLET 300 MG PO (20:01)
[2023-02-26] MEDS: guaiFENesin 12 HR 600 MG TABCR PO (20:01)
[2023-02-26] MEDS: MIRTAZAPINE 15 MG TABLET PO (20:01)
[2023-02-27] VITALS (16 sets, daily range): BP systolic 90–106; BP diastolic 46–62; PULSE 20–126; RESP 16–106; TEMP 36.9–38.1; O2SAT 93–99
[2023-02-27 04:58] LABS: Eosinophils Percent Auto 0.7 % (0-4.4); Hematocrit 23.1 % (37.0-47.0); Hemoglobin 7.7 g/dL (12.0-15.0); Immature Granulocyte Absolute 0.02 K/mm3 (0.00-0.031); Immature Granulocyte Percent A 1.4 % (0-0.5); Immature Platelet Fraction Pct 4.3 % (0.9-11.2); Lymphocytes Absolute Auto 1.19 K/mm3 (0.9-3.2); Lymphocytes Percent Auto 82.6 % (18.3-44.2); Mean Corpuscular HGB Conc 33.3 g/dl (32-36); Mean Corpuscular Hemoglobin 30.8 pg (26-34); Mean Corpuscular Volume 92.4 fl (80-100); Monocytes Absolute Auto 0.1 K/mm3 (0.1-0.6); Monocytes Percent Auto 8.3 % (2.6-8.5); Neutrophils Absolute Auto 0.1 K/mm3 (1.3-6.7); Platelet Count Result 47 k/mm3 (150-375); Red Cell Distribution Width 17.2 % (11.5-14.5)
[2023-02-27 05:09] LABS: Alanine Aminotransferase 40 U/L (6-35); Albumin Level 3.4 g/dL (3.5-5.1); Alkaline Phosphatase 55 U/L (38-126); Anion Gap 8 mmol/L (8-16); Aspartate Amino Transferase 30 U/L (14-36); Bilirubin,Total 0.6 mg/dL (0.2-1.3); Blood Urea Nitrogen 9 mg/dL (7-17); Calcium 8.2 mg/dL (8.4-10.2); Carbon Dioxide 23 mmol/L (22-30); Chloride 97 mmol/L (98-107); Estimated CRCL calculation 89 ml/min; Estimated Glomerular Filt Rate > 60; Glucose 106 mg/dL (65-110); Magnesium 1.3 mg/dL (1.6-2.3); Potassium 3.9 mmol/L (3.4-5.0); Sodium 128 mmol/L (137-145)
[2023-02-27 05:33] LABS: White Blood Count 1.4 K/mm3 (4.5-10.0)
[2023-02-27 05:35] LABS: Anisocytosis 1+ (NORMAL); Platelet Estimate Decreased (Adequate); Poikilocytosis 1+ (NORMAL)
[2023-02-27 05:38] LABS: Schistocytes None Seen (NORMAL)
[2023-02-27] MEDS: FLUTICASONE/UMECLIDIN/VILANTER 100-62.5-25 MCG ELLIPTA 1 PUFF INHALATION (07:23)
[2023-02-27] MEDS: ACETAMINOPHEN 500 MG TABLET 1000 MG PO ×3 (08:15→20:55)
[2023-02-27] MEDS: SODIUM CHLORIDE 0.9% IV 1,000 ML 75 ML IV CONT (09:22)
[2023-02-27] MEDS: PIPERACILLN/TAZ 3.375GM/NS50ML 3.375 GM/50 ML BAG IVPB ×3 (09:23→17:39)
[2023-02-27] MEDS: METOPROLOL SUCCINATE EXT REL 12.5 MG TABCR PO (09:24)
[2023-02-27] MEDS: FILGRASTIM-SNDZ 480 MCG/0.8 ML SYRINGE SUB-Q (09:24)
[2023-02-27] MEDS: PANTOPRAZOLE 40 MG TABLET PO (09:24)
[2023-02-27] MEDS: MULTIVITAMINS THERAPEUTIC TAB (*BKC) 1 TABLET PO (09:24)
[2023-02-27] MEDS: ONDANSETRON INJ 4 MG/2 ML VIAL IV PUSH ×2 (09:25→20:54)
[2023-02-27] MEDS: NICOTINE (*PBKC) 14 MG PATCH 1 PATCH TRANSDERM (09:25)
--- NOTE | 2023-02-27 09:32 | PM.IMPN ---
Progress Note: A&P Assessment and Plan (1) Neutropenia: Code(s): D70.9 - Neutropenia, unspecified Status: Acute Assessment and Plan: patient has neutropenia and leukopenia. Likely secondary to chemotherapy. Her oncologist Dr. Cottrell has been consulted. She is not febrile. Does not need IV antibiotics 02/26/2023 interval history: 62-year-old female with history of lung cancer seen by oncologist and and had a chemotherapy for 3 days presented emergency depart with complaint weakness nausea and vomiting and found to have leukopenia, upon arrival her white counts were 1000 communicated with her oncologist and started the patient on neopogen 480 mcg q.day and will monitor patient white trending up in today 1500 compared to 1000 upon arrival, patient was seen by her oncologist started the patient on augmentin will monitor and further recommendation to follow. Patient is dehydrated due to nausea or vomiting and diarrhea patient is being hydrated and will monitor patient electrolytes and kidney function, will continue to monitor and further recommendation to follow. 02/27/2023: 62-year-old female with lung cancer recently started on chemotherapy cycle 3. Presented with extreme weakness nausea vomiting to have leukopenia with neutropenia fever. Started on Neupogen. ANC still low. Will start IV fluid looks dehydrated tachycardic with fever. On Augmentin. Will switch to Zosyn. Tylenol p.r.n. for fever. Blood cultures been negative. Metoprolol to continue. (2) Hyponatremia: Code(s): E87.1 - Hypo-osmolality and hyponatremia Status: Acute Assessment and Plan: patient received 2 L of NS. Continue normal saline at set 5 cc an hour maintain hydration (3) Dehydration: Code(s): E86.0 - Dehydration Status: Acute Assessment and Plan: continue IV fluids. Monitor BMP (4) Small cell lung cancer: Code(s): C34.90 - Malignant neoplasm of unspecified part of unspecified bronchus or lung Status: Acute Assessment and Plan: patient on palliative chemotherapy. last session was on last (5) Hypokalemia: Code(s): E87.6 - Hypokalemia Status: Acute Assessment and Plan: patient received 40 mEq IV in the ED. will give oral replacement Plan full code DVT prophylaxis Lovenox which is on hold due to thrombocytopenia Subjective Date/time seen: 02/27/23 09:32 Interval history: Chief Complaint: ?weakness, nausea, vomiting HPI-Narrative: Patient is a 62-year-old female with a history of lung cancer on palliative chemo, COPD presenting with generalized weakness.? Patient states that she completed 3 days of chemotherapy last week.? Since that time she has been increasingly nauseated.? States that she has had very little appetite.? States that she was able to keep down fluids until yesterday when she had an episode of emesis.? States that she has been checking her vitals at home and her heart rate has been going up to the 130s and her blood pressures have been as low as 80 systolic.? No chest pain, abdominal pain, back pain.? No dysuria or hematuria.? Reports chronic shortness of breath.? No numbness or focal weakness.? No vision or speech changes.? No diarrhea.? No leg swelling.?? in ED she was found to be neutropenic? and hypokalemic and hypotensive. 02/26/2023 interval history: 62-year-old female with history of lung cancer seen by oncologist and and had a chemotherapy for 3 days presented emergency depart with complaint weakness nausea and vomiting and found to have leukopenia, upon arrival her white counts were 1000 communicated with her oncologist and started the patient on neopogen 480 mcg q.day and will monitor patient white trending up in today 1500 compared to 1000 upon arrival, patient was seen by her oncologist started the patient on augmentin will monitor and further recommendation to follow. Patient is dehydrated due to nausea or vomiting and
[2023-02-27] MEDS: MAGNESIUM SULF 2 GM/WATER 50ML 2 GM/50 ML BAG IVPB (10:07)
[2023-02-27] MEDS: LOPERAMIDE HCL 2 MG CAPSULE PO ×2 (13:05→15:03)
[2023-02-27] MEDS: CENTRAL LINE FLUSH 10 ML IV PUSH (13:05)
--- NOTE | 2023-02-27 15:51 | ECG_ITS ---
Measurements Intervals [place] Rate: 106 P: 53 GA: 167 QRS: 51 QRSD: 74 T: 52 QT: 329 QTc: 438 Interpretive Statements SINUS TACHYCARDIA RSR' IN V1 OR V2, PROBABLY NORMAL VARIANT LOW QRS VOLTAGE IN PRECORDIAL LEADS BASELINE ARTIFACT- V1, V6 BORDERLINE ECG COMPARED TO ECG 02/23/2023 13:34:08 NO SIGNIFICANT CHANGES Electronically Signed On 02-27-2023 22:00:44 CDT by Brandyn Moore D.O.
[2023-02-27] MEDS: ALBUTEROL SULFATE (*SP) AEROSOL 1 PUFF 2 PUFF INHALATION (15:52)
[2023-02-27] MEDS: MIRTAZAPINE 15 MG TABLET PO (20:55)
[2023-02-27] MEDS: QUEtiapine FUMARATE 100 MG TABLET 300 MG PO (20:55)
[2023-02-27] MEDS: guaiFENesin 12 HR 600 MG TABCR PO (20:55)
[2023-02-28] VITALS (24 sets, daily range): BP systolic 76–111; BP diastolic 42–65; PULSE 76–120; RESP 14–18; TEMP 36.3–38.1; O2SAT 91–95
[2023-02-28] MEDS: PIPERACILLN/TAZ 3.375GM/NS50ML 3.375 GM/50 ML BAG IVPB ×4 (01:01→17:52)
[2023-02-28 05:41] LABS: Immature Platelet Fraction Pct 4.7 % (0.9-11.2); Mean Corpuscular HGB Conc 33.8 g/dl (32-36); Mean Corpuscular Hemoglobin 32.1 pg (26-34); Mean Corpuscular Volume 94.9 fl (80-100); Mean Platelet Volume 9.9 fl (7.4-10.4); Platelet Count Result 47 k/mm3 (150-375); Red Blood Count 2.15 M/mm3 (4.2-5.4); Red Cell Distribution Width 17.4 % (11.5-14.5)
[2023-02-28 05:48] LABS: Hemoglobin 6.9 g/dL (12.0-15.0)
[2023-02-28 05:49] LABS: Hematocrit 20.4 % (37.0-47.0)
[2023-02-28 05:54] LABS: Alanine Aminotransferase 36 U/L (6-35); Albumin Level 3.2 g/dL (3.5-5.1); Alkaline Phosphatase 52 U/L (38-126); Anion Gap 6 mmol/L (8-16); Aspartate Amino Transferase 26 U/L (14-36); Bilirubin,Total 0.5 mg/dL (0.2-1.3); Blood Urea Nitrogen 10 mg/dL (7-17); Calcium 8.1 mg/dL (8.4-10.2); Carbon Dioxide 27 mmol/L (22-30); Chloride 99 mmol/L (98-107); Estimated CRCL calculation 89 ml/min; Estimated Glomerular Filt Rate > 60; Glucose 120 mg/dL (65-110); Magnesium 1.6 mg/dL (1.6-2.3); Potassium 3.5 mmol/L (3.4-5.0); Sodium 132 mmol/L (137-145)
[2023-02-28 07:27] LABS: Total Cells Counted 100
[2023-02-28 07:28] LABS: Band Neutrophils Percent 1 % (0-6); Lymphocytes Percent Manual 65 % (18-44); Neutrophils Absolute Manual 0.44 K/mm3 (1.7-7.2); Neutrophils Percent Manual 21 % (46-73)
[2023-02-28 07:29] LABS: Monocytes Absolute Manual 0.26 K/mm3 (0.1-0.90); Monocytes Percent Manual 13 % (3-9); Platelet Estimate Decreased (Adequate)
[2023-02-28 07:30] LABS: Anisocytosis 1+ (NORMAL); Schistocytes None Seen (NORMAL)
[2023-02-28] MEDS: FLUTICASONE/UMECLIDIN/VILANTER 100-62.5-25 MCG ELLIPTA 1 PUFF INHALATION (07:33)
[2023-02-28] MEDS: LEVALBUTEROL NEB 1.25 MG/3 ML INHALATION ×2 (07:33→13:35)
[2023-02-28] MEDS: MULTIVITAMINS THERAPEUTIC TAB (*BKC) 1 TABLET PO (09:48)
[2023-02-28] MEDS: METOPROLOL SUCCINATE EXT REL 12.5 MG TABCR PO (09:48)
[2023-02-28] MEDS: NICOTINE (*PBKC) 14 MG PATCH 1 PATCH TRANSDERM (09:48)
[2023-02-28] MEDS: PANTOPRAZOLE 40 MG TABLET PO (09:48)
[2023-02-28] MEDS: SODIUM CHLORIDE 0.9% IV 250 ML 30 ML IV CONT ×2 (09:52→20:17)
[2023-02-28] MEDS: FILGRASTIM-SNDZ 480 MCG/0.8 ML SYRINGE SUB-Q (10:11)
--- NOTE | 2023-02-28 10:20 | PM.IMPN ---
Progress Note: A&P Assessment and Plan (1) Neutropenia: Code(s): D70.9 - Neutropenia, unspecified Status: Acute Assessment and Plan: patient has neutropenia and leukopenia. Likely secondary to chemotherapy. Her oncologist Dr. Cottrell has been consulted. She is not febrile. Does not need IV antibiotics 02/26/2023 interval history: 62-year-old female with history of lung cancer seen by oncologist and and had a chemotherapy for 3 days presented emergency depart with complaint weakness nausea and vomiting and found to have leukopenia, upon arrival her white counts were 1000 communicated with her oncologist and started the patient on neopogen 480 mcg q.day and will monitor patient white trending up in today 1500 compared to 1000 upon arrival, patient was seen by her oncologist started the patient on augmentin will monitor and further recommendation to follow. Patient is dehydrated due to nausea or vomiting and diarrhea patient is being hydrated and will monitor patient electrolytes and kidney function, will continue to monitor and further recommendation to follow. 02/27/2023: 62-year-old female with lung cancer recently started on chemotherapy cycle 3. Presented with extreme weakness nausea vomiting to have leukopenia with neutropenia fever. Started on Neupogen. ANC still low. Will start IV fluid looks dehydrated tachycardic with fever. On Augmentin. Will switch to Zosyn. Tylenol p.r.n. for fever. Blood cultures been negative. Metoprolol to continue. 02/29/2020 3:[age]-year-old female with lung cancer recently started on chemotherapy post cycle 3. Present with extreme weakness nausea vomiting noted to have leukopenia with neutropenic fever. Started on Neupogen. ANC slowly improving. Hemoglobin and platelets down. Will transfuse 1 unit of PRBC today. IV fluids started 02/27/2023 however got short of breath and chest x-ray with worsening congestion. IV fluids stopped. Not requiring oxygen. Asymmetric pulmonary edema on right further evaluate with CT chest PE protocol. Started on Zosyn. Tylenol p.r.n. for fever. Blood culture has been negative. Metoprolol as tolerated for sinus tachycardia. (2) Hyponatremia: Code(s): E87.1 - Hypo-osmolality and hyponatremia Status: Acute Assessment and Plan: patient received 2 L of NS. Continue normal saline at set 5 cc an hour maintain hydration (3) Dehydration: Code(s): E86.0 - Dehydration Status: Acute Assessment and Plan: continue IV fluids. Monitor BMP (4) Small cell lung cancer: Code(s): C34.90 - Malignant neoplasm of unspecified part of unspecified bronchus or lung Status: Acute Assessment and Plan: patient on palliative chemotherapy. last session was on last (5) Hypokalemia: Code(s): E87.6 - Hypokalemia Status: Acute Assessment and Plan: patient received 40 mEq IV in the ED. will give oral replacement Plan full code DVT prophylaxis Lovenox which is on hold due to thrombocytopenia Subjective Date/time seen: 02/28/23 10:20 Interval history: Chief Complaint: ?weakness, nausea, vomiting HPI-Narrative: Patient is a 62-year-old female with a history of lung cancer on palliative chemo, COPD presenting with generalized weakness.? Patient states that she completed 3 days of chemotherapy last week.? Since that time she has been increasingly nauseated.? States that she has had very little appetite.? States that she was able to keep down fluids until yesterday when she had an episode of emesis.? States that she has been checking her vitals at home and her heart rate has been going up to the 130s and her blood pressures have been as low as 80 systolic.? No chest pain, abdominal pain, back pain.? No dysuria or hematuria.? Reports chronic shortness of breath.? No numbness or focal weakness.? No vision or speech changes.? No diarrhea.? No leg swelling.?? in ED she was found to be neutr
[2023-02-28] MEDS: ACETAMINOPHEN 500 MG TABLET 1000 MG PO ×2 (11:31→20:15)
--- NOTE | 2023-02-28 12:58 | P.CDI_ITS ---
CDI Query Clarification Request BMI 25.6 Nutritional Diagnostic Statement Severe Malnutrition related to inadequate protein-energy intake with increased protein-energy needs in setting of chronic disease (Cancer) as evidence by minimal oral intake for >1-2 months and significant weight loss of 21% (40lbs) in 3.5 months. Please refer to the Comprehensive Nutrition Assessment for further information. Please clarify severity of Protein calorie Malnutrition: * Mild * Moderate * Severe * Other/ Unspecified <Regine Panchal RN - Last Filed: 02/28/23 13:04> Provider Comments severe malnutrition <Chema Roman MD - Last Filed: 02/28/23 17:20>
[2023-02-28 13:05] LABS: Total Bilirubin Imm Post TxRxn 0.7 mg/dL (0.2-1.3)
[2023-02-28] MEDS: HEPARIN SODIUM LOCK FLUSH 500 UNITS/5 ML SYRINGE IV PUSH (13:08)
[2023-02-28 14:17] LABS: TXRXN Occult Blood Urine Immed Negative (Negative)
[2023-02-28 14:18] LABS: TXRXN RBC Urine Immediate 0-2 /hpf (0-2)
[2023-02-28 17:19] LABS: Total Bilirubin 5hr Post TX RX 0.5 mg/dL (0.2-1.3)
[2023-02-28] MEDS: AZITHROMYCIN 500 MG/NS 250 ML 500 MG/250 ML BAG 250 MG IVPB (18:54)
[2023-02-28] MEDS: guaiFENesin 12 HR 600 MG TABCR PO (20:16)
[2023-02-28] MEDS: MIRTAZAPINE 15 MG TABLET PO (20:16)
[2023-02-28] MEDS: QUEtiapine FUMARATE 100 MG TABLET 300 MG PO (20:16)
[2023-03-01] VITALS (13 sets, daily range): BP systolic 100–104; BP diastolic 60–68; PULSE 98–120; RESP 17–20; TEMP 36.4–36.9; O2SAT 93–97
[2023-03-01] MEDS: PIPERACILLN/TAZ 3.375GM/NS50ML 3.375 GM/50 ML BAG IVPB ×5 (00:01→23:06)
[2023-03-01 05:41] LABS: Basophils Percent Auto 0.7 % (0.2-1.2); Eosinophils Percent Auto 0.4 % (0-4.4); Hemoglobin 9.1 g/dL (12.0-15.0); Immature Granulocyte Absolute 0.23 K/mm3 (0.00-0.031); Immature Platelet Fraction Pct 5.2 % (0.9-11.2); Lymphocytes Absolute Auto 2.17 K/mm3 (0.9-3.2); Lymphocytes Percent Auto 47.3 % (18.3-44.2); Mean Corpuscular HGB Conc 33.7 g/dl (32-36); Mean Corpuscular Hemoglobin 30.6 pg (26-34); Mean Corpuscular Volume 90.9 fl (80-100); Mean Platelet Volume 10.9 fl (7.4-10.4); Monocytes Absolute Auto 0.6 K/mm3 (0.1-0.6); Monocytes Percent Auto 12.6 % (2.6-8.5); Neutrophils Absolute Auto 1.6 K/mm3 (1.3-6.7); Platelet Count Result 56 k/mm3 (150-375); Red Blood Count 2.97 M/mm3 (4.2-5.4); Red Cell Distribution Width 17.6 % (11.5-14.5); White Blood Count 4.6 K/mm3 (4.5-10.0)
[2023-03-01 05:56] LABS: Alanine Aminotransferase 53 U/L (6-35); Albumin Level 3.3 g/dL (3.5-5.1); Alkaline Phosphatase 62 U/L (38-126); Anion Gap 7 mmol/L (8-16); Aspartate Amino Transferase 35 U/L (14-36); Bilirubin,Total 0.7 mg/dL (0.2-1.3); Blood Urea Nitrogen 9 mg/dL (7-17); Calcium 8.7 mg/dL (8.4-10.2); Carbon Dioxide 26 mmol/L (22-30); Chloride 103 mmol/L (98-107); Estimated CRCL calculation 89 ml/min; Estimated Glomerular Filt Rate > 60; Glucose 91 mg/dL (65-110); Magnesium 1.4 mg/dL (1.6-2.3); Potassium 3.5 mmol/L (3.4-5.0); Sodium 136 mmol/L (137-145)
[2023-03-01 06:33] LABS: Platelet Estimate Decreased (Adequate)
[2023-03-01 06:36] LABS: Burr Cells 1+ (NORMAL); Schistocytes None Seen (NORMAL)
[2023-03-01] MEDS: MAGNESIUM SULF 2 GM/WATER 50ML 2 GM/50 ML BAG IVPB (08:12)
[2023-03-01] MEDS: MULTIVITAMINS THERAPEUTIC TAB (*BKC) 1 TABLET PO (08:12)
[2023-03-01] MEDS: PANTOPRAZOLE 40 MG TABLET PO (08:13)
[2023-03-01] MEDS: FLUTICASONE/UMECLIDIN/VILANTER 100-62.5-25 MCG ELLIPTA 1 PUFF INHALATION (08:13)
[2023-03-01] MEDS: NICOTINE (*PBKC) 14 MG PATCH 1 PATCH TRANSDERM (08:13)
[2023-03-01] MEDS: METOPROLOL SUCCINATE EXT REL 12.5 MG TABCR PO (08:13)
[2023-03-01] MEDS: ACETAMINOPHEN 500 MG TABLET 1000 MG PO (08:15)
--- NOTE | 2023-03-01 08:15 | PCRCNOTE ---
pt refusing UPD stating she 'does not want them because I do not take them at home. I only want my Trelegy, it has been a game changer for me.'
[2023-03-01] MEDS: LORazepam (*CRX) 1 MG TABLET PO (10:33)
[2023-03-01] MEDS: ALBUTEROL SULFATE (*SP) AEROSOL 1 PUFF 2 PUFF INHALATION (11:03)
--- NOTE | 2023-03-01 11:04 | PCRCNOTE ---
RT called due to pt being short of breath. When entering the room, pt stated she was not necessarily short of breath, but she felt as though she just could not take a deep breath. RT administered inhaler and listened to pt (posterior bilateral). RT heard coarse crackles on the right side. Pt asked RT to relay what RT heard which RT stated 'coarse crackles on your right side.' Pt stated that lasix helped her the last time this happened. RT relayed this to the RN. RN to call MD and ask for a one time dose of lasix.
--- NOTE | 2023-03-01 11:10 | PCNFU ---
Nutrition Follow-Up Complete: Severe Malnutrition related to inadequate protein-energy intake with increased protein-energy needs in setting of chronic disease or condition (cancer) as evidenced by minimal oral intake for >1-2 months and significant weight loss of 21%(40 ibs) in 3.5 months. Goal: Adequate Intake of at least 75% of meals/supplements Patient is progressing towards goal. We will continue current goal. Pt current nutrition is Regular. Last recorded weight is 69.8 kg. Bowel Motility:+BM reported 02/25 Labs Reviewed:Mg 1.4,Cr 0.5,Na 136, Hct 27.0,Hgb 9.1 Meds Noted:Zosyn, Protonix, Heparin, Remeron Skin: WNL Additional Notes: Nutrition follow up. Patient is tolerating a regular diet. 20-60% of most meals. Diarrhea has improved. Banatrol Plus BID with Ensure Pudding (240 kcals and 12 gms protein). PO intake continues to be encouraged. Monitoring: RD will monitor every 5 days.
[2023-03-01] MEDS: FUROSEMIDE INJ 40 MG/4 ML VIAL 20 MG IV PUSH (11:16)
--- NOTE | 2023-03-01 13:31 | PM.IMPN ---
Progress Note: A&P Assessment and Plan (1) Neutropenia: Code(s): D70.9 - Neutropenia, unspecified Status: Acute Assessment and Plan: patient has neutropenia and leukopenia. Likely secondary to chemotherapy. Her oncologist Dr. Cottrell has been consulted. She is not febrile. Does not need IV antibiotics 02/26/2023 interval history: 62-year-old female with history of lung cancer seen by oncologist and and had a chemotherapy for 3 days presented emergency depart with complaint weakness nausea and vomiting and found to have leukopenia, upon arrival her white counts were 1000 communicated with her oncologist and started the patient on neopogen 480 mcg q.day and will monitor patient white trending up in today 1500 compared to 1000 upon arrival, patient was seen by her oncologist started the patient on augmentin will monitor and further recommendation to follow. Patient is dehydrated due to nausea or vomiting and diarrhea patient is being hydrated and will monitor patient electrolytes and kidney function, will continue to monitor and further recommendation to follow. 02/27/2023: 62-year-old female with lung cancer recently started on chemotherapy cycle 3. Presented with extreme weakness nausea vomiting to have leukopenia with neutropenia fever. Started on Neupogen. ANC still low. Will start IV fluid looks dehydrated tachycardic with fever. On Augmentin. Will switch to Zosyn. Tylenol p.r.n. for fever. Blood cultures been negative. Metoprolol to continue. 02/29/2020 3:[age]-year-old female with lung cancer recently started on chemotherapy post cycle 3. Present with extreme weakness nausea vomiting noted to have leukopenia with neutropenic fever. Started on Neupogen. ANC slowly improving. Hemoglobin and platelets down. Will transfuse 1 unit of PRBC today. IV fluids started 02/27/2023 however got short of breath and chest x-ray with worsening congestion. IV fluids stopped. Not requiring oxygen. Asymmetric pulmonary edema on right further evaluate with CT chest PE protocol. Started on Zosyn. Tylenol p.r.n. for fever. Blood culture has been negative. Metoprolol as tolerated for sinus tachycardia. 03/01/2020 3:[age]-year-old female with lung cancer recently started on chemotherapy post cycle 3. Present with extreme weakness nausea vomiting noted to have leukopenia with neutropenic fever. Started on Neupogen. ANC has recovered now. Hemoglobin and platelets are down but improved. Transfuse 1 unit of PRBC yesterday. Post transfusion H&H adequate. A bit short of breath earlier today. Improved with a dose of IV Lasix x1. CT chest PE protocol with no PE but findings of multifocal pneumonia on right lung. Atypical in appearance. On Zosyn since admission. Added azithromycin for atypical coverage. Tylenol p.r.n. for fever. No fever for the past 24 hours. If remains afebrile for next 24 hours may be able to discharge home on oral antibiotics. Blood culture has been negative. Metoprolol as tolerated for sinus tachycardia home doses continued during the hospital stay. Will stop her Neupogen today as her leukopenia has resolved. Platelet count has for finally turned around and show some improvement today (2) Hyponatremia: Code(s): E87.1 - Hypo-osmolality and hyponatremia Status: Acute Assessment and Plan: patient received 2 L of NS. Continue normal saline at set 5 cc an hour maintain hydration (3) Dehydration: Code(s): E86.0 - Dehydration Status: Acute Assessment and Plan: continue IV fluids. Monitor BMP (4) Small cell lung cancer: Code(s): C34.90 - Malignant neoplasm of unspecified part of unspecified bronchus or lung Status: Acute Assessment and Plan: patient on palliative chemotherapy. last session was on last (5) Hypokalemia: Code(s): E87.6 - Hypokalemia Status: Acute Assessment and Plan: patient received 40 mEq IV in the ED
[2023-03-01] MEDS: AZITHROMYCIN 250 MG TABLET 500 MG PO (19:05)
[2023-03-01] MEDS: ONDANSETRON INJ 4 MG/2 ML VIAL IV PUSH (20:03)
[2023-03-01] MEDS: MIRTAZAPINE 15 MG TABLET PO (20:04)
[2023-03-01] MEDS: guaiFENesin 12 HR 600 MG TABCR PO (20:04)
[2023-03-01] MEDS: QUEtiapine FUMARATE 100 MG TABLET 300 MG PO (20:04)
[2023-03-02] VITALS: PULSE 113
[2023-03-02] MEDS: LEVALBUTEROL NEB 1.25 MG/3 ML INHALATION (01:26)
[2023-03-02 01:31] VITALS: PULSE 100; RESP 20; O2SAT 96
[2023-03-02 04:00] VITALS: PULSE 102
[2023-03-02] MEDS: PIPERACILLN/TAZ 3.375GM/NS50ML 3.375 GM/50 ML BAG IVPB (05:16)
[2023-03-02 06:00] VITALS: BP 155/77; PULSE 63; RESP 20; TEMP 36.3; O2SAT 99
[2023-03-02 06:09] LABS: Basophils Absolute Auto 0.1 K/mm3 (0.0-0.1); Basophils Percent Auto 1.1 % (0.2-1.2); Eosinophils Percent Auto 0.2 % (0-4.4); Hematocrit 27.6 % (37.0-47.0); Hemoglobin 9.3 g/dL (12.0-15.0); Immature Granulocyte Absolute 0.11 K/mm3 (0.00-0.031); Immature Granulocyte Percent A 1.8 % (0-0.5); Immature Platelet Fraction Pct 5.2 % (0.9-11.2); Lymphocytes Percent Auto 42.5 % (18.3-44.2); Mean Corpuscular HGB Conc 33.7 g/dl (32-36); Mean Corpuscular Hemoglobin 31.2 pg (26-34); Mean Corpuscular Volume 92.6 fl (80-100); Mean Platelet Volume 10.1 fl (7.4-10.4); Monocytes Absolute Auto 0.8 K/mm3 (0.1-0.6); Monocytes Percent Auto 12.3 % (2.6-8.5); Neutrophils Absolute Auto 2.6 K/mm3 (1.3-6.7); Neutrophils Percent Auto 42.1 % (45.5-73.1); Platelet Count Result 78 k/mm3 (150-375); Red Blood Count 2.98 M/mm3 (4.2-5.4); Red Cell Distribution Width 18.1 % (11.5-14.5); White Blood Count 6.1 K/mm3 (4.5-10.0)
[2023-03-02 06:18] LABS: Alanine Aminotransferase 43 U/L (6-35); Albumin Level 3.4 g/dL (3.5-5.1); Alkaline Phosphatase 68 U/L (38-126); Anion Gap 7 mmol/L (8-16); Aspartate Amino Transferase 28 U/L (14-36); Bilirubin,Total 0.5 mg/dL (0.2-1.3); Blood Urea Nitrogen 15 mg/dL (7-17); Calcium 8.9 mg/dL (8.4-10.2); Carbon Dioxide 29 mmol/L (22-30); Chloride 102 mmol/L (98-107); Estimated CRCL calculation 75 ml/min; Estimated Glomerular Filt Rate > 60; Glucose 96 mg/dL (65-110); Magnesium 1.5 mg/dL (1.6-2.3); Potassium 3.7 mmol/L (3.4-5.0); Sodium 138 mmol/L (137-145)
[2023-03-02 06:54] LABS: Anisocytosis 1+ (NORMAL); Ovalocytes 1+ (NORMAL); Platelet Estimate Decreased (Adequate)
[2023-03-02 06:55] LABS: Schistocytes None Seen (NORMAL)
[2023-03-02 08:00] VITALS: PULSE 98
[2023-03-02 08:12] VITALS: PULSE 98
[2023-03-02] MEDS: NICOTINE (*PBKC) 14 MG PATCH 1 PATCH TRANSDERM (08:12)
[2023-03-02] MEDS: METOPROLOL SUCCINATE EXT REL 12.5 MG TABCR PO (08:12)
[2023-03-02] MEDS: MULTIVITAMINS THERAPEUTIC TAB (*BKC) 1 TABLET PO (08:13)
[2023-03-02] MEDS: PANTOPRAZOLE 40 MG TABLET PO (08:13)
[2023-03-02] MEDS: FLUTICASONE/UMECLIDIN/VILANTER 100-62.5-25 MCG ELLIPTA 1 PUFF INHALATION (09:02)
--- NOTE | 2023-03-02 10:52 | PM.DS ---
DS: Admitting Diagnosis Discharge Date 03/02/2023 Admitting Diagnosis neutropenia DS: Discharge Diagnosis Discharge Diagnosis (1) Lung cancer: Code(s): C34.90 - Malignant neoplasm of unspecified part of unspecified bronchus or lung Status: Acute (2) Neutropenia: Code(s): D70.9 - Neutropenia, unspecified Status: Acute (3) Pneumonia involving left lung: Code(s): J18.9 - Pneumonia, unspecified organism Status: Acute DS: Summary Hospital Course Hospital Course: 62-year-old female with a past medical history of lung cancer status post chemotherapy, cycle 3. She presented to nausea vomiting and was found to have leukopenia And neutropenia. Heme-Onc was consulted. Patient was started on Neupogen. ANC has now normalized. her hemoglobin was low so she was transfused 1 unit of PRBC. hemoglobin has improved. CT chest showed no PE but showed multifocal pneumonia. Patient was started on IV Zosyn. Azithromycin was added for atypical coverage. Patient is afebrile now. Blood cultures have been negative so far. Patient is clinically stable and is being discharged home with oral antibiotics. Time Spent with Patient Time attestation: Total time spent providing and/or coordinating discharge services: DS: Data Data Completed and Pending Labs on day of discharge: Labs from last 24 hours 03/02/23 05:55 WBC 6.1 RBC 2.98 L Hgb 9.3 L Hct 27.6 L MCV 92.6 MCH 31.2 MCHC 33.7 RDW 18.1 H Plt Count 78 L MPV 10.1 Immature Gran % (Auto) 1.8 H Neut % (Auto) 42.1 L Lymph % (Auto) 42.5 [place] % (Auto) 12.3 H Eos % (Auto) 0.2 Baso % (Auto) 1.1 Lymph # (Auto) 2.60 [place] # (Auto) 0.8 H Eos # (Auto) 0.0 Baso # (Auto) 0.1 Abs Immat Gran (auto) 0.11 H Absolute Neuts (auto) 2.6 Absolute Nucleated RBC 0.0 Nucleated RBC % 0.0 Platelet Estimate Decreased % Immature Plt Fraction 5.2 Anisocytosis 1+ Ovalocytes 1+ Schistocytes None seen Sodium 138 Potassium 3.7 Chloride 102 Carbon Dioxide 29 Anion Gap 7 L BUN 15 D Creatinine 0.60 L Estim Creat Clear Calc 75 Estimated GFR > 60 Glucose 96 Calcium 8.9 Magnesium 1.5 L Total Bilirubin 0.5 AST 28 ALT 43 H Alkaline Phosphatase 68 Total Protein 6.0 L Albumin 3.4 L Discharge Plan Discharge Consulting providers: Steve Cottrell Discharging Clinician: William Guevara Anticipated Discharge Date/Time: 03/02/23 10:49 Patient Disposition: Home, Self-Care Activity: no preference Diet: heart healthy Patient Instructions: Antibiotic Form Stand Alone Forms: General Discharge Information Follow-up/Referrals: Steve Cottrell MD [Physician] - [facility],AS[facility] Stern [Primary Care Provider] - Discharge Medications: New amoxicillin-pot clavulanate 875-125 mg tablet 1 tablet PO Q12H Qty: 14 0RF azithromycin 500 mg tablet 500 mg PO DAILY Qty: 4 0RF Continued multivitamin Tablet 1 tablet PO DAILY Trelegy Ellipta 100-62.5-25 mcg blister with device 1 inh inhalation DAILY metoprolol succinate 25 mg tablet extended release 24 hr 12.5 mg PO DAILY mirtazapine 15 mg tablet 15 mg PO QHS guaifenesin [Mucinex] 600 mg Tablet Extended Release 12hr 600 mg PO HS ibuprofen 400 mg tablet 400 mg PO TID PRN (Reason: fever or pain) 10 Days Qty: 30 0RF ondansetron 4 mg tablet,disintegrating 8 mg PO Q6H PRN (Reason: nausea and vomiting) quetiapine 300 mg tablet 300 mg PO HS albuterol sulfate [Proventil HFA] 90 mcg/actuation Hfa Aerosol Inhaler 2 puff inhalation Q6HRT PRN (Reason: Shortness Of Breath) Qty: 1 0RF Patient Comments: PT USES EVERYDAY lorazepam [Ativan] 1 mg tablet 1 mg PO BID PRN (Reason: anxiety) Qty: 30 1RF albuterol sulfate 2.5 mg /3 mL (0.083 %) solution for nebulization 2.5 mg inhalation Q4-6H PRN (Reason: shortness of breath or wheezing) Qty: 180 3RF Date of admission: 02/24/23 10:16
== END 2023-03-02 11:55 | disposition home or self-care (01) | DRG 660 ==
LOC: ANHED 13:46 → ANH2MED 16:42
PROVIDERS: Family Medicine; Internal Medicine; Admitting Provider Hospitalist; Emergency Provider Emergency Medicine; PCP Physician Assistant; Visit Provider Hospitalist
DX: D70.1 Agranulocytosis secondary to cancer chemotherapy (principal); E43 Unspecified severe protein-calorie malnutrition; J18.9 Pneumonia, unspecified organism; I95.9 Hypotension, unspecified; E87.1 Hypo-osmolality and hyponatremia; J44.0 Chronic obstructive pulmonary disease with (acute) lower respiratory infection; E86.0 Dehydration; T45.1X5A Adverse effect of antineoplastic and immunosuppressive drugs, initial encounter; E78.5 Hyperlipidemia, unspecified; F32.A Depression, unspecified; E87.6 Hypokalemia; I10 Essential (primary) hypertension; F41.9 Anxiety disorder, unspecified; Z90.710 Acquired absence of both cervix and uterus; Z85.118 Personal history of other malignant neoplasm of bronchus and lung; Z87.891 Personal history of nicotine dependence; Z68.25 Body mass index [BMI] 25.0-25.9, adult
CPT/HCPCS: 36415; 36430; 71045; 71046; 71275; 80048; 80053; 81001; 81003; 82247; 83605; 83690; 83735; 85014; 85018; 85025; 85027; 85055; 86850; 86900; 86901; 86923; 87040; 93005; 94640; 96361; 96374; 96375; 99285; A9270; C9113; G0378; G0379; J0456; J1642; J1940; J2405; J2543; J3475; J3480; J7030; J7040; J7050; J7120; P9016; Q5101; Q9967

== ENCOUNTER 2023-03-06 20:21 | Observation (INO) | payer MEDICAID, SELFPAY ==
[2023-03-06] VITALS (22 sets, daily range): BP systolic 102–123; BP diastolic 78–95; PULSE 115–133; RESP 12–23; TEMP 36.6; O2SAT 94–100
--- NOTE | ~2023-03-06 | CT_ITS ---
EXAMINATION: CTA chest PE protocol DATE: 03/06/2023 22:38 INDICATION: Tachycardia. Hypoxia. TECHNIQUE: Computed tomography angiography (CTA) of the chest was performed with 100 mL Omnipaque-350 intravenous contrast timed to evaluate the pulmonary arteries. Coronal maximum intensity projection 3D-reconstructions were created by the technologist. Automated exposure control and iterative reconst ruction technique were employed. The dose-length product was 250.44 mGy-cm. COMPARISON: Chest CTA 02/2723, 11/02/2022, 11/11/2022 FINDINGS: There is mild emphysema. There is bronchiectasis in the inferior lungs. There is a 6 mm nod ule in left lower lobe with improvement from 10 mm on 11/02/2022. There are peripheral airspace opacit ies in the lower lobes. There are centrilobular nodules and tree-in-bud opacities in right upper lobe , right middle lobe, and right lower lobe. There is a cluster of nodules in left upper lobe with impr ovement from 11/11/22. No pleural effusion. The heart size is normal. There are coronary artery calcifi cations. No pericardial effusion. There is mediastinal and bilateral hilar lymphadenopathy. The pulmo nary arteries are poorly opacified. Calcifications in the liver and spleen are consistent with old gr anulomatous disease. There is a right breast implant. There are surgical changes of left breast. There is a left internal jugular port with tip in right atrium. There is extraluminal contras t near the port reservoir. There is moderate thoracic spondylosis. There are chronic burst fractures of T3 and T9. There is a chronic compression fracture of T6. IMPRESSION: 1. Nodules in left lung upper lobe and superior segment left lower lobe and mediastinal and hilar lym phadenopathy, consistent with metastatic disease. 2. Multifocal lung disease, right worse than left, consistent with pneumonia. 3. Nondiagnostic for evaluation for pulmonary embolus. 4. Mild emphysema. 5. Extraluminal contrast near the port reservoir. Reviewed, dictated and finalized at location A. IMPRESSION: 1. Nodules in left lung upper lobe and superior segment left lower lobe and med iastinal and hilar lymphadenopathy, consistent with metastatic disease. 2. Multifocal lung disease, right worse than left, consistent with pneumonia. 3. Nondiagnostic for evaluation for pulmonary embolus. 4. Mild emphysema. 5. Extraluminal contrast near the port reservoir.
--- NOTE | ~2023-03-06 | CT_ITS ---
EXAMINATION: CTA chest PE protocol DATE: 03/07/2023 01:16 INDICATION: Hypoxia. Tachycardia. TECHNIQUE: Computed tomography angiography (CTA) of the chest was performed with 100 mL Omnipaque-350 intravenous contrast timed to evaluate the pulmonary arteries. Coronal maximum intensity projection 3D-reconstructions were created by the technologist. Automated exposure control and iterative reconst ruction technique were employed. The dose-length product was 257.45 mGy-cm. COMPARISON: Chest CTA 03/06/2023, 11/02/22, 11/11/22 FINDINGS: There is mild emphysema. There is bronchiectasis in the inferior lungs. There is a 6 mm nod ule in left lower lobe with improvement from 10 mm on 11/02/2022. There are peripheral airspace opacit ies in the lower lobes. There are centrilobular nodules and tree-in-bud opacities in right upper lobe , right middle lobe, and right lower lobe. There is a cluster of nodules in left upper lobe with impr ovement from 11/11/22. No pleural effusion. The heart size is normal. There are coronary artery calcifi cations. No pericardial effusion. There is mediastinal and bilateral hilar lymphadenopathy. No pulmon eddie embolus. Calcifications in the liver and spleen are consistent with old granulomatous disease. Th ere is a right breast implant. There are surgical changes of left breast. There is a left internal ju gular port with tip in right atrium. There is extraluminal contrast near the port reservoir. There is moderate thoracic spondylosis. There is a chronic burst fractures of T3 and T9. There is a chronic c ompression fracture of T6. IMPRESSION: 1. Nodules in left lung upper lobe and superior segment left lower lobe and mediastinal and hilar lym phadenopathy, consistent with metastatic disease. 2. Multifocal lung disease, right worse than left, consistent with pneumonia. 3. No pulmonary embolus. 4. Mild emphysema. 5. Extraluminal contrast near the port reservoir. Reviewed, dictated and finalized at location A. IMPRESSION: 1. Nodules in left lung upper lobe and superior segment left lower lobe and med iastinal and hilar lymphadenopathy, consistent with metastatic disease. 2. Multifocal lung disease, right worse than left, consistent with pneumonia. 3. No pulmonary embolus. 4. Mild emphysema. 5. Extraluminal contrast near the port reservoir.
--- NOTE | 2023-03-06 20:30 | ECG_ITS ---
Measurements Intervals [place] Rate: 131 P: 50 RI: 150 QRS: 59 QRSD: 68 T: 51 QT: 288 QTc: 425 Interpretive Statements SINUS TACHYCARDIA EARLY PRECORDIAL R/S TRANSITION LOW QRS VOLTAGE IN PRECORDIAL LEADS BASELINE ARTIFACT- I, II, AVR, AVL, AVF ABNORMAL ECG COMPARED TO ECG 02/27/2023 16:08:17 NO SIGNIFICANT CHANGES Electronically Signed On 03-07-2023 7:57:52 CDT by Brandyn Moore D.O.
[2023-03-06] MEDS: LEVALBUTEROL NEB 1.25 MG/3 ML 2.5 MG INHALATION (20:38)
--- NOTE | 2023-03-06 20:41 | ED.GENADULT ---
HPI - General Adult General Chief complaint: Shortness of Breath/Dyspnea Stated complaint: SOB History of Present Illness HPI narrative: 62-year-old female history of COPD and lung cancer that is going to be switched to palliative care. Patient had been following up with oncology, Dr Cottrell. Patient recently completed her last chemo treatment and patient states she will be going on to palliative care and and to hospice. Patient will not be doing any additional chemo treatments. Patient is not on oxygen at home and states that she began having increased difficulty breathing tonight. Patient was recently discharged from the hospital and states that she had been on Augmentin and azithromycin. Related Data Home Medications Medication Instructions Recorded Confirmed quetiapine 300 mg tablet 300 mg PO HS 02/05/21 03/07/23 guaifenesin 600 mg tablet, 600 mg PO HS 12/03/22 03/07/23 extended release 12 hr (Mucinex) fluticasone fur. 100 mcg-umeclid 1 inh inhalation DAILY 12/06/22 03/07/23 62.5 mcg-vilant 25 mcg inhalat.powder (Trelegy Ellipta) metoprolol succinate 25 mg 12.5 mg PO DAILY 02/08/23 03/07/23 tablet,extended release 24 hr mirtazapine 15 mg tablet 15 mg PO QHS 02/08/23 03/07/23 multivitamin 1 tablet PO DAILY 02/15/23 03/07/23 ondansetron 4 mg disintegrating 8 mg PO Q6H PRN nausea and vomiting 02/23/23 03/07/23 tablet Allergies Allergy/AdvReac Type Severity Reaction Status Date / Time Sulfa (Sulfonamide Allergy Severe Difficulty Verified 03/07/23 03:38 Antibiotics) Breathing Review of Systems Review of Systems: All systems reviewed & are unremarkable except as noted in HPI and below PMFSH Past Medical History Medical History Alcohol use Anxiety Cancer of left breast Status post bilateral mastectomy and chemoradiation. Chronic obstructive pulmonary disease Depression Dyslipidemia Hypertension Tobacco abuse Surgical History Surgical History History of bilateral mastectomy History of hysterectomy History of tonsillectomy Family History Family History (Updated 03/07/23 @ 03:45 by Raza Patton RN) Mother Diabetes mellitus Hypertension Dementia Grandparent Diabetes mellitus Father Hypertension Dementia Social History Social History Social History: Surrogate decision maker: Cyndee Cobos, daughter. Code status: Full code. Smoking packs per day: 1 Smoking cigarettes per day: 20.0 Years smoked: 45 Smoking pack-years: 45.00 Smoking status: Former smoker Tobacco type: cigarettes Second hand tobacco smoke exposure: No Additional smoking assessment comments: Down to a few cigarettes a day since lung cancer diagnosis. Alcohol intake: never Drinks per week: 14 Alcohol use details: No alcohol since lung cancer diagnosis. Substance use: never Substance use type: does not use Lack of Transportation: No Lack of Food: Never True Current Housing: I Have Housing Concerned About Future Housing: No Difficulty Paying Gas/Electric Bills: No Difficulty Paying for Meds: No Currently Unemployed: No Education: Trade/Vocational Certificate Difficulty w/ Childcare or Family Care: No Living arrangements: alone Additional living arrangements comments: The patient lives in [place]. 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 Spiritual care concerns: No Exam Narrative: APPEARANCE: Well appearing, no pain, no distress, well-nourished. HEAD: normocephalic, atraumatic. EYES: PERRLA/EOMI, conjunctivae clear. NOSE: Normal no drainage NECK: Supple. No adenopathy, no masses. RESPIRATORY: Wheeze bilaterally CARDIOVASCULAR: Regular rate and rhythm without murmurs rubs or gallops. ABDOMINAL: Soft, nontender, nondistended, normal bowel sounds [place]
[2023-03-06] MEDS: SODIUM CHLORIDE 0.9% IV 1,000 ML 999 ML IV CONT (21:22)
[2023-03-06 21:32] LABS: Basophils Percent Auto 0.4 % (0.2-1.2); Eosinophils Percent Auto 0.1 % (0-4.4); Hematocrit 30.5 % (37.0-47.0); Hemoglobin 10.3 g/dL (12.0-15.0); Immature Granulocyte Absolute 0.08 K/mm3 (0.00-0.031); Lymphocytes Absolute Auto 2.28 K/mm3 (0.9-3.2); Lymphocytes Percent Auto 29.7 % (18.3-44.2); Mean Corpuscular HGB Conc 33.8 g/dl (32-36); Mean Corpuscular Hemoglobin 31.2 pg (26-34); Mean Corpuscular Volume 92.4 fl (80-100); Mean Platelet Volume 10.1 fl (7.4-10.4); Neutrophils Absolute Auto 4.3 K/mm3 (1.3-6.7); Neutrophils Percent Auto 55.8 % (45.5-73.1); Platelet Count Result 152 k/mm3 (150-375); Red Cell Distribution Width 18.6 % (11.5-14.5); White Blood Count 7.7 K/mm3 (4.5-10.0)
[2023-03-06 21:42] LABS: Alanine Aminotransferase 33 U/L (6-35); Albumin Level 4.1 g/dL (3.5-5.1); Alkaline Phosphatase 92 U/L (38-126); Anion Gap 10 mmol/L (8-16); Aspartate Amino Transferase 23 U/L (14-36); Bilirubin,Total 0.4 mg/dL (0.2-1.3); Blood Urea Nitrogen 7 mg/dL (7-17); Calcium 9.3 mg/dL (8.4-10.2); Carbon Dioxide 24 mmol/L (22-30); Chloride 98 mmol/L (98-107); Estimated CRCL calculation 108 ml/min; Estimated Glomerular Filt Rate > 60; Glucose 127 mg/dL (65-110); Potassium 3.5 mmol/L (3.4-5.0); Sodium 132 mmol/L (137-145)
[2023-03-07] VITALS (23 sets, daily range): BP systolic 99–110; BP diastolic 68–70; PULSE 94–120; RESP 13–25; TEMP 36.4–36.7; O2SAT 95–99; BMI 23.6
[2023-03-07] MEDS: SODIUM CHLORIDE 0.9% IV 1,000 ML 999 ML IV CONT (02:03)
[2023-03-07] MEDS: methylPREDNISolone SOD SUCC 125 MG VIAL IV PUSH (02:03)
[2023-03-07] MEDS: AZITHROMYCIN 500 MG/NS 250 ML 500 MG/250 ML BAG 250 MG IVPB (02:59)
--- NOTE | 2023-03-07 03:20 | ADMGEN ---
This patient, Shelby Mera, was admitted to Medical Room 248-. Patient/family oriented to hospital policies and general routines including ID bracelet, bed and alarms, visiting hours, pain management, procedures, bathroom and other care routines, personal items, smoking policy, room service/diet, and visiting hours. Information on how to activate the Rapid Response Team has been discussed. Patient/Family are encouraged to report perceived risks to care and to ask questions if they do not understand what they are told or what they should do.
[2023-03-07] MEDS: LORazepam (*CRX) 1 MG TABLET PO (04:14)
[2023-03-07] MEDS: methylPREDNISolone SOD SUCC 125 MG VIAL 60 MG IV PUSH ×2 (05:16→11:46)
--- NOTE | 2023-03-07 07:22 | PM.IMHP ---
H&P: HPI History of Present Illness Date/Time: 03/07/23 07:22 Chief Complaint: Shortness of breath Narrative: 62-year-old female with a past medical history small-cell lung cancer, COPD, hypertension and dyslipidemia who presented to the ER via EMS for shortness of breath. The patient was just recently hospitalized from 02/23/2023 through 03/02/2023 for neutropenia, and pneumonia. She received 8 days of antibiotic therapy in the hospital. She was discharged home with another 7 days of Augmentin and another 4 days of azithromycin. The patient reports that she has been sick ever since she received her last dose of chemotherapy. She has still been having significant cough with occasional production of clear, white or hand sputum. She denies any fevers or chills. Her white count today is stable compared to her discharge white count. She reports that she has been using her nebulizer treatments at home about 3 times a day which do seem to help with her symptoms. However today she was more tired and slept longer. Subsequently she only received 2 of her nebulizer treatments. Approximately an hour before she called EMS she became acutely more short of breath and took a dose of Ativan and used her nebulizer. That time her nebulizer did not seem to help her symptoms. The patient reports that since she was diagnosed with cancer she has had a significant weight loss. Her pre chemo weight was 190 lb. She has had progressive weakness. She stated that before she came into the hospital the last time she was actually Army crawling to the bathroom because of her weakness. She states that she has been able to get up and walk to the bathroom currently. She denies any nausea vomiting but has decreased appetite. She usually has constipation immediately after chemotherapy and then progresses to having diarrhea. She is having 3-4 loose stools a day currently that she thinks are from the antibiotics for her pneumonia. She reports intermittent episodes of urinary retention. However does not feel that she is retaining urine at this time. She feels she is emptying her bladder completely currently. She reports that she has made the decision to not proceed with chemotherapy. She was post have chemotherapy next Tuesday or (I cannot recall) but instead plans to have a glass a wine to celebrate not going to chemotherapy. She has already established with [place] palliative [facility]. I had an extensive discussion with the patient in the room. She initially told the ER provider that she did not want to be a DNR. But after talking about the benefits of proceeding with hospice [facility] Past Medical History Medical History (Updated 03/07/23 @ 08:17 by Galina Moreland DO) Alcohol use Anxiety Cancer of left breast Status post bilateral mastectomy and chemoradiation. Chronic obstructive pulmonary disease Depression Dyslipidemia Hypertension Small cell lung cancer Tobacco abuse Surgical History Surgical History History of bilateral mastectomy History of hysterectomy History of tonsillectomy Family History Family History (Updated 03/07/23 @ 03:45 by Raza Patton, PERRY) Mother Diabetes mellitus Hypertension Dementia Grandparent Diabetes mellitus Father Hypertension Dementia Social History Social History (Updated 03/07/23 @ 08:40 by Galina Moreland DO) Social History: Surrogate decision maker: Cyndee Cobos, daughter. Code status: DNR/DNI Smoking packs per day: 1 Smoking cigarettes per day: 20.0 Years smoked: 45 Smoking pack-years: 45.00 Smoking status: Former smoker Tobacco type: cigarettes Second hand tobacco smoke exposure: No Additional smoking assessment comments: Down to a few cigarettes a day since lung cancer diagnosis. Alcohol intake: never Drinks per week: 14 Alcohol use details: No alcohol since lung cancer diagnosis. Substance use: never
[2023-03-07] MEDS: MAGNESIUM SULFATE 3GM/D5W100ML 3 GM/100 ML BAG IVPB (08:48)
[2023-03-07] MEDS: MULTIVITAMINS THERAPEUTIC TAB (*BKC) 1 TABLET PO (08:48)
[2023-03-07] MEDS: METOPROLOL SUCCINATE EXT REL 12.5 MG TABCR PO (08:48)
[2023-03-07] MEDS: guaiFENesin 12 HR 600 MG TABCR 1200 MG PO (08:48)
[2023-03-07] MEDS: IPRATROPIUM BR 0.02% INH SOLN 0.5 MG/2.5 ML VIAL INHALATION (09:29)
[2023-03-07] MEDS: LEVALBUTEROL NEB 1.25 MG/3 ML INHALATION (09:30)
[2023-03-07] MEDS: ENOXAPARIN 40 MG/0.4 ML SYRINGE SUB-Q (11:47)
--- NOTE | 2023-03-07 13:28 | PM.DS ---
DS: Admitting Diagnosis Discharge Date 03/07/23 Admitting Diagnosis Shortness of breath, COPD exacerbation DS: Discharge Diagnosis Discharge Diagnosis (1) COPD exacerbation: Code(s): J44.1 - Chronic obstructive pulmonary disease with (acute) exacerbation Status: Acute (2) Acute respiratory failure with hypoxia: Code(s): J96.01 - Acute respiratory failure with hypoxia Status: Acute (3) Small cell lung cancer: Code(s): C34.90 - Malignant neoplasm of unspecified part of unspecified bronchus or lung Status: Acute (4) Sinus tachycardia: Code(s): R00.0 - Tachycardia, unspecified Status: Acute (5) Protein-calorie malnutrition, severe: Code(s): E43 - Unspecified severe protein-calorie malnutrition Status: Acute DS: Summary Hospital Course Hospital Course: 62-year-old female with past medical history of small-cell lung cancer, COPD, hypertension and dyslipidemia the presented to the ED on 03/06/2023 with complaint of shortness of breath. She was recently hospitalized for 8 days and received antibiotic therapy for neutropenia and pneumonia. Patient has felt unwell since last dose chemotherapy. She has significant cough and occasional production of white/clear sputum. Patient has progressive weakness and has significant weight loss since starting chemotherapy. Patient made the decision not to proceed with any more chemotherapy. She had been on palliative care with [facility] and is interested to moving to hospice care. Patient's code status changed to DNR. Patient requiring 2 L of oxygen. Patient admitted for COPD exacerbation. Patient would like to be discharged into hospice care at home as soon as possible on oxygen since she is now feeling better. care coordination consulted and set up hospice care for the patient. Home O2 evaluation done and patient will receive oxygen at home to keep her comfortable. Patient being discharged into hospice care on 03/07/2023. Time Spent with Patient Time attestation: Total time spent providing and/or coordinating discharge services: Exam Narrative: GENERAL: Comfortable, no acute distress HENMT: moist mucous membranes EYES: EOM intact b/l NECK: no lymphadenopathy RESPIRATORY: clear to auscultation CARDIO: RRR GI: soft, nontender, bowel sounds present SKIN: no rashes EXTREMITIES: no edema, redness or tenderness DS: Data Data Completed and Pending Labs on day of discharge: Labs from last 24 hours 03/06/23 21:23 WBC 7.7 RBC 3.30 L Hgb 10.3 L Hct 30.5 L MCV 92.4 MCH 31.2 MCHC 33.8 RDW 18.6 H Plt Count 152 D MPV 10.1 Immature Gran % (Auto) 1.0 H Neut % (Auto) 55.8 Lymph % (Auto) 29.7 [place] % (Auto) 13.0 H Eos % (Auto) 0.1 Baso % (Auto) 0.4 Lymph # (Auto) 2.28 [place] # (Auto) 1.0 H Eos # (Auto) 0.0 Baso # (Auto) 0.0 Abs Immat Gran (auto) 0.08 H Absolute Neuts (auto) 4.3 Absolute Nucleated RBC 0.0 Nucleated RBC % 0.0 Sodium 132 L Potassium 3.5 Chloride 98 Carbon Dioxide 24 Anion Gap 10 BUN 7 D Creatinine 0.40 L Estim Creat Clear Calc 108 Estimated GFR > 60 Glucose 127 H Calcium 9.3 Total Bilirubin 0.4 AST 23 ALT 33 Alkaline Phosphatase 92 Total Protein 7.0 Albumin 4.1 Discharge Plan Discharge Attending physician on discharge: Landon Strong Discharging Clinician: Malia Goss Patient Disposition: Hospice - Home Activity: as tolerated Diet: regular Discharge Instructions: Continue prednisone 40 mg for 4 more days Home O2 will be delivered to your house. Discharge home to hospice Patient Instructions: Pain Management (DC) Stand Alone Forms: General Discharge Information Discharge Medications: New prednisone 20 mg tablet 40 mg PO DAILY 4 Days Qty: 8 0RF Continued multivitamin Tablet 1 tablet PO DAILY Trelegy Ellipta 100-62.5-25 mcg blister with device 1 inh inhalation DAILY metoprolol suc
== END 2023-03-07 14:49 | disposition hospice, home (50) ==
LOC: ANHED 21:41 → ANH2MED 03-07 03:16
PROVIDERS: Admitting Provider Internal Medicine; Emergency Provider Emergency Medicine; PCP Physician Assistant; Visit Provider Internal Medicine
DX: Z51.5 Encounter for palliative care (principal); C34.90 Malignant neoplasm of unspecified part of unspecified bronchus or lung; Z92.21 Personal history of antineoplastic chemotherapy; J44.1 Chronic obstructive pulmonary disease with (acute) exacerbation; J96.01 Acute respiratory failure with hypoxia; E43 Unspecified severe protein-calorie malnutrition; Z68.23 Body mass index [BMI] 23.0-23.9, adult; R00.0 Tachycardia, unspecified; R11.2 Nausea with vomiting, unspecified; R94.31 Abnormal electrocardiogram [ECG] [EKG]; F41.9 Anxiety disorder, unspecified; Z85.3 Personal history of malignant neoplasm of breast; Z90.13 Acquired absence of bilateral breasts and nipples; F32.A Depression, unspecified; E78.5 Hyperlipidemia, unspecified; I10 Essential (primary) hypertension; F17.210 Nicotine dependence, cigarettes, uncomplicated; Z79.51 Long term (current) use of inhaled steroids; Z79.899 Other long term (current) drug therapy; Z82.49 Family history of ischemic heart disease and other diseases of the circulatory system
CPT/HCPCS: 36415; 71275; 80053; 85025; 93005; 94640; 96360; 96361; 96365; 96367; 96372; 96375; 96376; 99285; A9270; G0378; G0379; J0456; J0696; J1650; J2930; J3475; J7030; Q9967

== ENCOUNTER 2023-05-20 12:32 | Outpatient (CLI) | payer OTHER, SELFPAY ==
--- NOTE | ~2023-05-20 | CT_ITS ---
EXAMINATION: CT brain w con DATE: 05/20/2023 13:05 INDICATION: Non-small cell lung cancer. TECHNIQUE: Computed tomography (CT) of the head was performed with 100 mL Omnipaque 350 intravenous c ontrast. The mA was adjusted according to patient size. Iterative reconstruction technique was employ ed. The dose-length product was 605.33 mGy-cm. COMPARISON: Head CT 12/03/2022 FINDINGS: There are scattered areas of low attenuation in the cerebral white matter. There is no intr acranial hemorrhage, acute infarction, or abnormal intracranial mass lesion. The ventricles are diane l in size. The orbits are normal. There is mild mucosal thickening in the ethmoid sinuses. There is a n osteoma in right ethmoid sinus. The mastoid air cells are normal. IMPRESSION: 1. No evidence of metastatic disease. 2. Stable moderate nonspecific cerebral white matter disease, which likely represents chronic small v essel ischemic disease. Reviewed, dictated and finalized at location A. IMPRESSION: 1. No evidence of metastatic disease. 2. Stable moderate nonspecific cerebral white matter disease, which likely repr esents chronic small vessel ischemic disease.
[2023-05-20 12:58] LABS: Estimated Glomerular Filt Rate > 60
== END 2023-05-20 12:33 | disposition home or self-care (01) ==
LOC: ANHIMG 12:38
PROVIDERS: PCP Physician Assistant; Visit Provider Internal Medicine Hematology & Oncology
DX: C34.90 Malignant neoplasm of unspecified part of unspecified bronchus or lung (principal); R93.0 Abnormal findings on diagnostic imaging of skull and head, not elsewhere classified
CPT/HCPCS: 70460; Q9967

== ENCOUNTER 2023-05-26 14:32 | Outpatient (CLI) | payer OTHER, SELFPAY ==
--- NOTE | ~2023-05-26 | CT_ITS ---
EXAMINATION: CT chest abdomen pelvis w con DATE: 05/26/2023 15:05 INDICATION: Non-small cell lung cancer. TECHNIQUE: Computed tomography (CT) of the chest, abdomen, and pelvis was performed with 100 mL Omnip aque 350 intravenous contrast. Automated exposure control and iterative reconstruction technique were employed. The dose-length product was 622.34 mGy-cm. COMPARISON: Chest CT 03/07/2023 FINDINGS: CHEST CT: There is mild emphysema. There is mild atelectasis bilaterally. There is a cluster of worsened nodule s in left upper lobe. For example, a 10 mm nodule previously measured 8 mm. There is an 8 mm nodule i n superior segment left lower lobe with worsening from 6 mm. There are centrilobular nodules in poste rior segment right upper lobe, consistent with mild pneumonia. No pleural effusion. There is a 4 mm n odule in right thyroid lobe, likely not clinically significant. There is mild mediastinal and right h ilar lymphadenopathy with interval improvement. There is left hilar lymphadenopathy measuring 4.2 x 3 .8 cm, worsened from 3.0 x 2.8 cm. There is worsened stenosis of left upper lobe bronchi. There is wo rsened mass effect on left pulmonary artery. The heart size is normal. There are coronary artery calc ifications. No pericardial effusion. There is a right breast implant. There are chronic burst fractur es of T3 and T9. There is a chronic compression fracture of T6. ABDOMEN/PELVIS CT: The liver, gallbladder, pancreas, and adrenal glands are normal. Calcifications in the spleen are con sistent with old granulomatous disease. The kidneys are normal. There is calcified atherosclerosis of the aorta and many of the other arteries. There is diverticulosis of the colon without evidence of d iverticulitis. There are no dilated loops of bowel. The appendix is normal. There are no pathological ly enlarged lymph nodes. There is no free intraperitoneal fluid. There is severe lumbar spondylosis. IMPRESSION: 1. Worsened left lung nodules and left hilar lymphadenopathy, consistent with metastatic disease. 2. Centrilobular nodules in right lung upper lobe with interval improvement, consistent with mild pne umonia. Improved mild right hilar and mediastinal lymphadenopathy, which may be reactive. Reviewed, dictated and finalized at location A. IMPRESSION: 1. Worsened left lung nodules and left hilar lymphadenopathy, consistent with m etastatic disease. 2. Centrilobular nodules in right lung upper lobe with interval improvement, co nsistent with mild pneumonia. Improved mild right hilar and mediastinal lymphad enopathy, which may be reactive.
== END 2023-05-26 14:33 | disposition home or self-care (01) ==
PROVIDERS: PCP Physician Assistant; Visit Provider Internal Medicine Hematology & Oncology
DX: C34.90 Malignant neoplasm of unspecified part of unspecified bronchus or lung (principal)
CPT/HCPCS: 71260; 74177; Q9967

== ENCOUNTER 2023-05-30 13:07 | Outpatient (CLI) | payer OTHER, SELFPAY ==
[2023-05-30 13:17] LABS: Basophils Percent Auto 0.3 % (0.2-1.2); Eosinophils Absolute Auto 0.1 K/mm3 (0-0.3); Eosinophils Percent Auto 0.7 % (0-4.4); Hematocrit 39.2 % (37.0-47.0); Hemoglobin 13.4 g/dL (12.0-15.0); Immature Granulocyte Absolute 0.03 K/mm3 (0.00-0.031); Immature Granulocyte Percent A 0.4 % (0-0.5); Lymphocytes Absolute Auto 1.39 K/mm3 (0.9-3.2); Lymphocytes Percent Auto 18.5 % (18.3-44.2); Mean Corpuscular HGB Conc 34.2 g/dl (32-36); Mean Corpuscular Hemoglobin 35.8 pg (26-34); Mean Corpuscular Volume 104.8 fl (80-100); Mean Platelet Volume 8.8 fl (7.4-10.4); Monocytes Absolute Auto 0.3 K/mm3 (0.1-0.6); Monocytes Percent Auto 4.4 % (2.6-8.5); Neutrophils Absolute Auto 5.7 K/mm3 (1.3-6.7); Neutrophils Percent Auto 75.7 % (45.5-73.1); Platelet Count Result 220 k/mm3 (150-375); Red Blood Count 3.74 M/mm3 (4.2-5.4); Red Cell Distribution Width 12.8 % (11.5-14.5); White Blood Count 7.5 K/mm3 (4.5-10.0)
[2023-05-30 13:23] LABS: Blood Urea Nitrogen 14 mg/dL (8-26); Carbon Dioxide 26 mmol/L (22-30); Chloride 100 mmol/L (98-109); Estimated Glomerular Filt Rate > 60; Glucose 115 mg/dL (70-105); Ionized Calcium (POC) 1.13 mmol/L (1.11-1.31); Potassium 4.1 mmol/L (3.5-4.9); Sodium 136 mmol/L (138-146)
[2023-05-30 17:59] LABS: Alanine Aminotransferase 26 U/L (6-35); Albumin Level 4.6 g/dL (3.5-5.1); Alkaline Phosphatase 91 U/L (38-126); Anion Gap 8 mmol/L (8-16); Aspartate Amino Transferase 33 U/L (14-36); Bilirubin,Total 0.3 mg/dL (0.2-1.3); Blood Urea Nitrogen 15 mg/dL (7-17); Calcium 9.7 mg/dL (8.4-10.2); Carbon Dioxide 27 mmol/L (22-30); Chloride 100 mmol/L (98-107); Estimated Glomerular Filt Rate > 60; Glucose 115 mg/dL (65-110); Potassium 4.2 mmol/L (3.4-5.0); Sodium 135 mmol/L (137-145)
== END 2023-05-30 13:08 | disposition home or self-care (01) ==
LOC: ANHLAB 13:09
PROVIDERS: PCP Physician Assistant; Visit Provider Internal Medicine Hematology & Oncology
DX: C34.90 Malignant neoplasm of unspecified part of unspecified bronchus or lung (principal); Z3A.00 Weeks of gestation of pregnancy not specified
CPT/HCPCS: 36415; 80047; 80053; 85025

== ENCOUNTER 2023-06-17 17:24 | Outpatient (CLI) | payer OTHER, SELFPAY ==
--- NOTE | ~2023-06-17 | XR_ITS ---
EXAMINATION: XR chest 2V DATE: 06/17/2023 17:44 INDICATION: Lung cancer presenting with dyspnea TECHNIQUE: frontal and lateral views of the chest were obtained. COMPARISON: Chest radiograph dated 02/27/[address] dated 05/26/2023 FINDINGS: Left internal jugular central venous port catheter with distal tip at the superior cavoatrial junctio n. Increased lucency in the upper lung zones consistent with mild emphysema better appreciated on mark or CT. There is a subtle airspace opacity in the left lung zone along the caudal margin of the port w as corresponding to an irregular nodular opacity on prior CT suspicious for metastatic disease. No ot her airspace opacities, pulmonary edema, pleural effusion or pneumothorax. Heart size is normal. Calc ified nodules at the left hilum consistent with old granulomatous disease. Right breast implant. Surg ical clips at the left axilla. IMPRESSION: 1. Emphysema with small opacity in the left upper lung zone corresponding to irregular cluster of nod ules on prior CT which is suspicious for metastatic disease. Reviewed, dictated and finalized at location A. IMPRESSION: 1. Emphysema with small opacity in the left upper lung zone corresponding to ir regular cluster of nodules on prior CT which is suspicious for metastatic disea se.
== END 2023-06-17 17:25 | disposition home or self-care (01) ==
PROVIDERS: PCP Physician Assistant; Visit Provider Physician Assistant
DX: R06.00 Dyspnea, unspecified (principal); J43.9 Emphysema, unspecified
CPT/HCPCS: 71046

== ENCOUNTER 2023-06-19 23:19 | Inpatient (IN) | payer OTHER, SELFPAY ==
--- NOTE | ~2023-06-19 | XR_ITS ---
Portable chest x-ray Comparison: 06/17/2023 Clinical History: Worsening shortness of breath Findings: Left-sided Mediport is unchanged. There is worsening interstitial edema pattern. No pleura l effusion or pneumothorax. Cardiomediastinal silhouette is stable. Bones and soft tissues are unrem arkable. Impression: Worsening interstitial pulmonary edema pattern. Correlate for worsening atypical infection. Stable Mediport. Reviewed, dictated and finalized at location . Impression: Worsening interstitial pulmonary edema pattern. Correlate for worsening atypica l infection. Stable Mediport.
--- NOTE | ~2023-06-19 | CT_ITS ---
Non-contrast CT scan of the Abdomen and Pelvis Clinical indication: Abdominal pain and vomiting Technique: 2.5 mm axial scans were obtained through the abdomen and pelvis without intravenous or or al contrast. Dose reduction technique was used on this scan by utilizing automated exposure control a nd iterative reconstruction technique. The dose-length product (DLP) was 439.51 mGy-cm. COMPARISON: 05/26/2023 Findings: Images through the lung bases reveal no abnormalities. There is no evidence of renal or ureteral calculi. The kidneys and the ureters are nondilated. The liver, spleen, pancreas, gallbladder, and adrenals appear normal. There are atherosclerotic calci fications of the aorta. There is no evidence of bowel obstruction. Probable mild diffuse large bowel wall thickening. Images through the pelvis were performed. There is no evidence of ascites or lymphadenopathy. Urinary bladder unremarkable. No pelvic mass seen. No ascites. Stable T9 compression fracture noted. Impression: Mild diffuse large bowel wall thickening suggests diffuse infectious/inflammatory colitis. No abscess or free air. Reviewed, dictated and finalized at [facility]. Impression: Mild diffuse large bowel wall thickening suggests diffuse infectious/inflammato ry colitis. No abscess or free air.
[2023-06-19 23:22] VITALS: BP 99/65; PULSE 115; RESP 17; TEMP 37.2; O2SAT 94
--- NOTE | 2023-06-19 23:41 | ED.GENADULT ---
HPI - General Adult General Chief complaint: Nausea/Vomiting/Diarrhea Stated complaint: NAUSEA & VOMITING Time Seen by Provider: 06/19/23 23:28 History of Present Illness HPI narrative: Patient presents to the emergency department by ambulance from home. She currently has lung cancer and is getting chemotherapy. Most recent dose was 5 days ago. Since then she has had generalized abdominal cramping nausea vomiting and diarrhea. Denies blood in her emesis or stool. Denies fevers and chills. She has been feeling more lightheaded today. EMS states that her blood pressure was mid 80s systolic when they arrived and she looked well. Fluids ordered and blood pressure has improved. Patient is very pleasant and her overall exam is benign. Related Data Home Medications Medication Instructions Recorded Confirmed quetiapine 300 mg tablet 300 mg PO HS 02/05/21 06/15/23 guaifenesin 600 mg tablet, 600 mg PO HS 12/03/22 06/15/23 extended release 12 hr (Mucinex) fluticasone fur. 100 mcg-umeclid 1 inh inhalation DAILY 12/06/22 06/15/23 62.5 mcg-vilant 25 mcg inhalat.powder (Trelegy Ellipta) metoprolol succinate 25 mg 12.5 mg PO DAILY 02/08/23 06/15/23 tablet,extended release 24 hr mirtazapine 15 mg tablet 15 mg PO QHS 02/08/23 06/15/23 multivitamin 1 tablet PO DAILY 02/15/23 06/15/23 ondansetron 4 mg disintegrating 8 mg PO Q6H PRN nausea and vomiting 02/23/23 06/15/23 tablet Allergies Allergy/AdvReac Type Severity Reaction Status Date / Time Sulfa (Sulfonamide Allergy Severe Difficulty Verified 06/15/23 11:53 Antibiotics) Breathing Review of Systems Review of Systems: CONSTITUTIONAL: Denies fever, chills, or sweats. EYES: Denies visual changes, redness, or discharge. ENT: Denies rhinorrhea, congestion, sore throat, or otalgia. CARDIOVASCULAR: Denies chest pain, palpitations, or edema. RESPIRATORY: Denies cough or dyspnea. GASTROINTESTINAL: has abdominal pain, nausea, vomiting, or diarrhea. GENITOURINARY: Denies dysuria or hematuria. SKIN: Denies rash or itching. MUSCULOSKELETAL: Denies back pain, joint pain, or myalgia. NEUROLOGIC: Denies headache, numbness, or weakness. PSYCHIATRIC: Denies anxiety or depression. [facility] Past Medical History Medical History (Updated 06/20/23 @ 03:29 by Pema Ott MD) Alcohol use Anxiety Cancer of left breast Status post bilateral mastectomy and chemoradiation. Chronic obstructive pulmonary disease Depression Dyslipidemia Hypertension Small cell lung cancer Tobacco abuse Surgical History Surgical History History of bilateral mastectomy History of hysterectomy History of tonsillectomy Family History Family History (Updated 03/07/23 @ 03:45 by Raza Patton RN) Mother Diabetes mellitus Hypertension Dementia Grandparent Diabetes mellitus Father Hypertension Dementia Social History Social History (Updated 03/07/23 @ 08:40 by Galina Moreland DO) Social History: Surrogate decision maker: Cyndee Cobos, daughter. Code status: DNR/DNI Smoking packs per day: 1 Smoking cigarettes per day: 20.0 Years smoked: 45 Smoking pack-years: 45.00 Smoking status: Former smoker Tobacco type: cigarettes Second hand tobacco smoke exposure: No Additional smoking assessment comments: Down to a few cigarettes a day since lung cancer diagnosis. Alcohol intake: never Drinks per week: 14 Alcohol use details: No alcohol since lung cancer diagnosis. Substance use: never Substance use type: does not use Lack of Transportation: No Lack of Food: Never True Current Housing: I Have Housing Concerned About Future Housing: No Difficulty Paying Gas/Electric Bills: No Difficulty Paying for Meds: No Currently Unemployed: No Education: Trade/Vocational Certificate Difficulty w/ Childcare or Family Care: No Living arrangements: alone Additional living arrangem
[2023-06-19] MEDS: ONDANSETRON INJ 4 MG/2 ML VIAL IV PUSH (23:54)
[2023-06-19] MEDS: FAMOTIDINE 20 MG/2 ML VIAL IV PUSH (23:54)
[2023-06-19] MEDS: SODIUM CHLORIDE 0.9% IV 1,000 ML 999 ML IV CONT (23:54)
[2023-06-19] MEDS: DICYCLOMINE HCL 10 MG CAPSULE PO (23:55)
[2023-06-20] VITALS (32 sets, daily range): BP systolic 92–125; BP diastolic 58–69; PULSE 106–127; RESP 15–33; TEMP 37–37.3; O2SAT 92–99; BMI 26.2
[2023-06-20 00:24] LABS: Eosinophils Percent Auto 1.9 % (0-4.4); Hematocrit 32.7 % (37.0-47.0); Hemoglobin 11.9 g/dL (12.0-15.0); Immature Granulocyte Absolute 0.09 K/mm3 (0.00-0.031); Immature Granulocyte Percent A 8.7 % (0-0.5); Lymphocytes Absolute Auto 0.66 K/mm3 (0.9-3.2); Lymphocytes Percent Auto 63.5 % (18.3-44.2); Mean Corpuscular HGB Conc 36.4 g/dl (32-36); Mean Corpuscular Hemoglobin 35.5 pg (26-34); Mean Corpuscular Volume 97.6 fl (80-100); Mean Platelet Volume 9.6 fl (7.4-10.4); Monocytes Absolute Auto 0.1 K/mm3 (0.1-0.6); Monocytes Percent Auto 5.8 % (2.6-8.5); Neutrophils Absolute Auto 0.2 K/mm3 (1.3-6.7); Neutrophils Percent Auto 19.1 % (45.5-73.1); Platelet Count Result 219 k/mm3 (150-375); Red Blood Count 3.35 M/mm3 (4.2-5.4)
[2023-06-20 00:54] LABS: Alanine Aminotransferase 19 U/L (6-35); Albumin Level 4.1 g/dL (3.5-5.1); Alkaline Phosphatase 56 U/L (38-126); Anion Gap 15 mmol/L (8-16); Aspartate Amino Transferase 25 U/L (14-36); Bilirubin,Total 0.9 mg/dL (0.2-1.3); Blood Urea Nitrogen 13 mg/dL (7-17); Calcium 8.8 mg/dL (8.4-10.2); Carbon Dioxide 21 mmol/L (22-30); Chloride 89 mmol/L (98-107); Estimated CRCL calculation 75 ml/min; Estimated Glomerular Filt Rate > 60; Glucose 108 mg/dL (65-110); Lipase 29 U/L (23-300); Potassium 3.9 mmol/L (3.4-5.0); Sodium 125 mmol/L (137-145)
[2023-06-20 02:14] LABS: Appearance Urine Cloudy (Clear); Bacteria Urine None Seen /hpf; Bilirubin Urine Negative (Negative); Blood Urine Negative (Negative); Color Urine Yellow (Yellow); Glucose Urine UA Negative (Negative); Ketones Urine 1+ mg/dL (Negative); Leukocyte Esterase Ur Negative LEU/UL (Negative); Nitrate Urine Negative (Negative); Non Pathogenic Casts 0-2; Protein Urine Negative (Negative); RBC Urine 0-2 /hpf (0-2); Specific Grav Ur 1.006 (1.001-1.035); Squamous Epithelial Cell Urine None seen /hpf (Few); Urobilinogen Urine 0.2 mg/dL (<2.0); WBC Urine 0-5 /hpf; pH Urine 6.5 (5.0-9.0)
[2023-06-20 02:17] LABS: Add Urine Microscopic? YES
[2023-06-20] MEDS: HYDROmorphone HCL INJ (*CRX) 1 MG/ML SYR IV PUSH (03:02)
[2023-06-20] MEDS: LORazepam INJ (*CRX) 2 MG/ML VIAL 0.5 MG IV PUSH (03:02)
[2023-06-20] MEDS: ONDANSETRON INJ 4 MG/2 ML VIAL IV PUSH ×4 (03:03→19:40)
[2023-06-20] MEDS: SODIUM CHLORIDE 0.9% IV 1,000 ML 999 ML IV CONT ×3 (03:06→20:00)
[2023-06-20 06:46] LABS: Lactic Acid Reflex 1.3 mmol/L (0.7-2.0)
[2023-06-20] MEDS: metroNIDAZOLE 500 MG/ISO 100ML 500 MG/100 ML BAG 100 MG IVPB (07:14)
[2023-06-20] MEDS: HYDROmorphone HCL INJ (*CRX) 1 MG/ML SYR 0.5 MG IV PUSH ×5 (11:51→22:50)
--- NOTE | 2023-06-20 12:24 | PC.NURSE ---
Patient refusing cardiac telemetry and bed alarms. Patient educated about risks.
--- NOTE | 2023-06-20 12:28 | ADMGEN ---
This patient, Shelby Mera, was admitted to Virtual Bed 3rd Floor-1. Patient/family oriented to hospital policies and general routines including ID bracelet, bed and alarms, visiting hours, pain management, procedures, bathroom and other care routines, personal items, smoking policy, room service/diet, and visiting hours. Information on how to activate the Rapid Response Team has been discussed. Patient/Family are encouraged to report perceived risks to care and to ask questions if they do not understand what they are told or what they should do.
[2023-06-20] MEDS: NICOTINE (*PBKC) 21 MG PATCH 1 PATCH TRANSDERM (13:40)
[2023-06-20] MEDS: ALBUTEROL SULFATE NEB 2.5 MG/3 ML INH INHALATION ×2 (13:42→20:47)
--- NOTE | 2023-06-20 14:22 | PM.IMHP ---
H&P: HPI History of Present Illness Date/Time: 06/20/23 14:22 Chief Complaint: nv abdominal pain Narrative: 62-year-old female with history of lung cancer presenting with nausea, vomiting, diarrhea and severe abdominal cramping status post chemotherapy 5 days ago. No chest pain or shortness of breath. No fevers or chills. She has had difficulty with p.o. intake due to severe nausea. She admits to feeling very weak and lightheaded. Review of Systems Review of Systems: 12 point review of systems was assessed and was negative except as noted in the HPI [facility] Past Medical History Medical History Alcohol use Anxiety Cancer of left breast Status post bilateral mastectomy and chemoradiation. Chronic obstructive pulmonary disease Depression Dyslipidemia Hypertension Small cell lung cancer Tobacco abuse Surgical History Surgical History History of bilateral mastectomy History of hysterectomy History of tonsillectomy Family History Family History Mother Diabetes mellitus Hypertension Dementia Grandparent Diabetes mellitus Father Hypertension Dementia Social History Social History Social History: Surrogate decision maker: Cyndee Cobos, daughter. Code status: DNR/DNI Smoking packs per day: 1 Smoking cigarettes per day: 20.0 Years smoked: 45 Smoking pack-years: 45.00 Smoking status: Current some day smoker Tobacco type: cigarettes Second hand tobacco smoke exposure: No Additional smoking assessment comments: Down to a few cigarettes a day since lung cancer diagnosis. Alcohol intake: never Drinks per week: 14 Alcohol use details: No alcohol since lung cancer diagnosis. Substance use: never Substance use type: does not use Lack of Transportation: No Lack of Food: Never True Current Housing: I Have Housing Concerned About Future Housing: No Difficulty Paying Gas/Electric Bills: No Difficulty Paying for Meds: No Currently Unemployed: No Education: Trade/Vocational Certificate Difficulty w/ Childcare or Family Care: No Living arrangements: alone Additional living arrangements comments: The patient lives in [place]. She is . She has 4 children. One daughter lives out of state. One daughter lives locally. She is mildly a strange from her 2 sons. 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 Spiritual care concerns: No Meds Home Medications and Allergies Home Medications Medication Instructions Recorded Confirmed Type quetiapine 300 mg tablet 150 mg PO HS 02/05/21 06/20/23 History albuterol sulfate 90 mcg/actuation 2 puff inhalation Q6HRT PRN 02/07/21 06/20/23 Rx aerosol inhaler (Proventil HFA) Shortness Of Breath #1 g ibuprofen 400 mg tablet 400 mg PO TID PRN fever or pain 10 12/01/22 06/20/23 Rx days #30 tabs fluticasone fur. 100 mcg-umeclid 1 inh inhalation DAILY 12/06/22 06/20/23 History 62.5 mcg-vilant 25 mcg inhalat.powder (Trelegy Ellipta) mirtazapine 15 mg tablet 30 mg PO QHS 02/08/23 06/20/23 History multivitamin 1 tablet PO DAILY 02/15/23 06/20/23 History ondansetron 4 mg disintegrating 8 mg PO Q6H PRN nausea and vomiting 02/23/23 06/20/23 History tablet prednisone 20 mg tablet 40 mg PO DAILY 4 days #8 tabs 03/07/23 06/20/23 Rx albuterol sulfate 2.5 mg/3 mL 2.5 mg (3 mL) inhalation Q4-6H PRN 05/27/23 06/20/23 Rx (0.083 %) solution for nebulization shortness of breath or wheezing #180 mL guaifenesin 600 mg tablet, 1,200 mg PO QHS 06/20/23 06/20/23 History extended release 12 hr (Mucinex) lorazepam 1 mg tablet (Ativan) 1 mg PO Q6H PRN anxiety 06/20/23 06/20/23 History metoprolol succinate 25 mg 12.5 mg PO QAM 06/20/23 06/20/23 History tablet,extended re
[2023-06-20] MEDS: SODIUM CHLORIDE 0.9% IV 1,000 ML 125 ML IV CONT (20:00)
[2023-06-20 20:14] LABS: Basophils Percent Auto 1.2 % (0.2-1.2); Eosinophils Percent Auto 2.5 % (0-4.4); Hematocrit 28.1 % (37.0-47.0); Hemoglobin 9.9 g/dL (12.0-15.0); Lymphocytes Absolute Auto 0.49 K/mm3 (0.9-3.2); Lymphocytes Percent Auto 60.5 % (18.3-44.2); Mean Corpuscular HGB Conc 35.2 g/dl (32-36); Mean Corpuscular Hemoglobin 35.2 pg (26-34); Mean Platelet Volume 9.2 fl (7.4-10.4); Monocytes Absolute Auto 0.1 K/mm3 (0.1-0.6); Monocytes Percent Auto 8.6 % (2.6-8.5); Neutrophils Absolute Auto 0.2 K/mm3 (1.3-6.7); Neutrophils Percent Auto 27.2 % (45.5-73.1); Platelet Count Result 179 k/mm3 (150-375); Red Blood Count 2.81 M/mm3 (4.2-5.4)
[2023-06-20 20:30] LABS: White Blood Count 0.8 K/mm3 (4.5-10.0)
[2023-06-20 20:38] LABS: Alanine Aminotransferase 16 U/L (6-35); Albumin Level 3.4 g/dL (3.5-5.1); Alkaline Phosphatase 57 U/L (38-126); Anion Gap 14 mmol/L (8-16); Aspartate Amino Transferase 27 U/L (14-36); Bilirubin,Total 0.6 mg/dL (0.2-1.3); Blood Urea Nitrogen 6 mg/dL (7-17); Carbon Dioxide 19 mmol/L (22-30); Chloride 94 mmol/L (98-107); Estimated CRCL calculation 89 ml/min; Estimated Glomerular Filt Rate > 60; Glucose 90 mg/dL (65-110); Potassium 3.1 mmol/L (3.4-5.0); Sodium 127 mmol/L (137-145)
[2023-06-20] MEDS: QUEtiapine FUMARATE 25 MG TABLET 50 MG PO (21:17)
[2023-06-20] MEDS: CENTRAL LINE FLUSH 10 ML IV PUSH (21:17)
[2023-06-20] MEDS: MIRTAZAPINE 15 MG TABLET 30 MG PO (21:17)
[2023-06-20] MEDS: guaiFENesin 12 HR 600 MG TABCR 1200 MG PO (21:17)
[2023-06-20] MEDS: QUEtiapine FUMARATE 100 MG TABLET PO (21:17)
--- NOTE | 2023-06-20 22:09 | PC.NURSE ---
Pt refusing IV fluids after feeling fullness in her chest and short of breath. Lung sounds diffuse wheezing. Called RT for breathing treatment. Pt states she is feeling better after breathing treatment but still does not want IV fluids.
[2023-06-21] VITALS (8 sets, daily range): BP systolic 82–93; BP diastolic 49–54; PULSE 88–126; RESP 16–20; TEMP 37.2; O2SAT 94–95
[2023-06-21] MEDS: ONDANSETRON INJ 4 MG/2 ML VIAL IV PUSH ×2 (00:25→17:28)
[2023-06-21] MEDS: IBUPROFEN 400 MG TABLET PO ×3 (01:50→16:33)
[2023-06-21] MEDS: HYDROmorphone HCL INJ (*CRX) 1 MG/ML SYR 0.5 MG IV PUSH (01:51)
[2023-06-21] MEDS: CENTRAL LINE FLUSH 10 ML IV PUSH ×3 (05:09→23:53)
[2023-06-21 05:10] LABS: Hematocrit 23.4 % (37.0-47.0); Hemoglobin 8.4 g/dL (12.0-15.0); Mean Corpuscular HGB Conc 35.9 g/dl (32-36); Mean Corpuscular Hemoglobin 35.7 pg (26-34); Mean Corpuscular Volume 99.6 fl (80-100); Platelet Count Result 135 k/mm3 (150-375); Red Blood Count 2.35 M/mm3 (4.2-5.4); Red Cell Distribution Width 12.2 % (11.5-14.5)
[2023-06-21 05:14] LABS: White Blood Count 0.9 K/mm3 (4.5-10.0)
[2023-06-21 05:22] LABS: Alanine Aminotransferase 16 U/L (6-35); Albumin Level 2.8 g/dL (3.5-5.1); Alkaline Phosphatase 52 U/L (38-126); Anion Gap 8 mmol/L (8-16); Aspartate Amino Transferase 17 U/L (14-36); Bilirubin,Total 0.4 mg/dL (0.2-1.3); Blood Urea Nitrogen 6 mg/dL (7-17); Calcium 7.5 mg/dL (8.4-10.2); Carbon Dioxide 21 mmol/L (22-30); Chloride 97 mmol/L (98-107); Estimated CRCL calculation 89 ml/min; Estimated Glomerular Filt Rate > 60; Glucose 147 mg/dL (65-110); Potassium 2.7 mmol/L (3.4-5.0); Sodium 126 mmol/L (137-145)
[2023-06-21] MEDS: metroNIDAZOLE 500 MG/ISO 100ML 500 MG/100 ML BAG 100 MG IVPB ×4 (05:50→23:52)
[2023-06-21] MEDS: POTASSIUM CHLORIDE 20 MEQ PACKET (FOR LIQUID) 40 MEQ PO (05:50)
[2023-06-21] MEDS: KCL 40 MEQ/WATER 100 ML 100 ML 25 ML IVPB (05:50)
[2023-06-21] MEDS: ALBUTEROL SULFATE NEB 2.5 MG/3 ML INH INHALATION ×2 (06:11→16:14)
[2023-06-21] MEDS: MAGNESIUM SULF 4 GM/WATER100ML 4 GM/100 ML BAG IVPB (06:21)
[2023-06-21 06:54] LABS: Band Neutrophils Percent 3 % (0-6); Eosinophils Absolute Manual 0.03 K/mm3 (0.02-0.5); Eosinophils Percent Manual 4 % (0-4); Lymphocytes Absolute Manual 0.72 K/mm3 (1.1-4.5); Monocytes Absolute Manual 0.01 K/mm3 (0.1-0.90); Monocytes Percent Manual 2 % (3-9); Neutrophils Absolute Manual 0.12 K/mm3 (1.7-7.2); Neutrophils Percent Manual 11 % (46-73); Total Cells Counted 100
[2023-06-21 06:55] LABS: Dohle Bodies Present (NORMAL); Platelet Estimate Decreased (Adequate); Schistocytes None Seen (NORMAL)
--- NOTE | 2023-06-21 08:21 | PM.IMPN ---
Progress Note: A&P Assessment and Plan (1) Abdominal pain, vomiting, and diarrhea: Code(s): R10.9 - Unspecified abdominal pain; R11.10 - Vomiting, unspecified; R19.7 - Diarrhea, unspecified Status: Acute Assessment and Plan: Dilaudid 1 mg q3h, Phenergan as needed IV fluid resuscitation, monitor 06/21: Start oxycodone 10 mg q.4 hours, try to wean off of the Dilaudid IV for discharge (2) Neutropenia: Qualifiers: Neutropenia type: secondary to cancer chemotherapy Qualified Code(s): D70.1 - Agranulocytosis secondary to cancer chemotherapy; T45.1X5A - Adverse effect of antineoplastic and immunosuppressive drugs, initial encounter Code(s): D70.9 - Neutropenia, unspecified Status: Acute Assessment and Plan: Due to chemo and lung cancer, reverse isolation in process (3) Protein-calorie malnutrition, severe: Code(s): E43 - Unspecified severe protein-calorie malnutrition Status: Acute (4) Sinus tachycardia: Code(s): R00.0 - Tachycardia, unspecified Status: Acute Assessment and Plan: Suspect this will resolve with IV fluid resuscitation, monitor (5) Small cell lung cancer: Code(s): C34.90 - Malignant neoplasm of unspecified part of unspecified bronchus or lung Status: Acute Assessment and Plan: As above (6) COPD (chronic obstructive pulmonary disease): Code(s): J44.9 - Chronic obstructive pulmonary disease, unspecified Status: Acute Assessment and Plan: Does not appear to be in acute exacerbation, monitor Plan DVT prophylaxis with SCDs GI prophylaxis not indicated Code status DNR Subjective Date/time seen: 06/21/23 08:21 Interval history: 62-year-old female with history of lung cancer presenting with nausea, vomiting, diarrhea and severe abdominal cramping status post chemotherapy 5 days ago.? No overnight events noted. No chest pain or shortness of breath. No fevers or chills. Still with significant nvd. ready to talk to hospice about palliative care for her pain and nausea. Review of Systems Review of Systems: 12 point review of systems was assessed and was negative except as noted in the HPI Exam Narrative: General: No acute distress, alert and oriented per baseline HEENT: Atraumatic, normocephalic, mucous membranes moist CV: Regular rate and rhythm, S1, S2 Lungs: Clear to auscultation bilaterally, no rales or crackles noted, no wheezes, good air entry Abdomen: Soft, nontender, nondistended Extremities: Normal to inspection Skin: No rashes noted, no lesions or wounds seen Psych: Euthymic, normal affect Objective Data Vital Signs Vital Signs: Vital Signs - 24 hr 06/20/23 08:30 06/20/23 08:31 06/20/23 08:47 Temperature Pulse Rate 114 H 114 H 118 H Respiratory Rate 28 H 29 H 22 H Blood Pressure 107/60 Pulse Oximetry 95 94 97 Oxygen Delivery Oxygen Flow Rate 06/20/23 09:02 06/20/23 09:15 06/20/23 09:30 Temperature Pulse Rate 127 H 116 H 116 H Respiratory Rate 33 H 20 22 H Blood Pressure Pulse Oximetry 93 97 96 Oxygen Delivery Oxygen Flow Rate 06/20/23 10:36 06/20/23 11:59 06/20/23 13:12 Temperature 98.8 F Pulse Rate 118 H 107 H 107 H Respiratory Rate 17 19 20 Blood Pressure 102/69 93/64 L 105/59 L Pulse Oximetry 97 98 99 Oxygen Delivery Oxygen Flow Rate 06/20/23 13:43 06/20/23 13:37 06/20/23 13:51 Temperature Pulse Rate Respiratory Rate 20 20 Blood Pressure Pulse Oximetry 94 Oxygen Delivery Room Air Oxygen Flow Rate 06/20/23 14:00 06/20/23 14:00 06/20/23 19:43 Temperature 99.2 F 98.6 F Pulse Rate 115 H 119 H Respiratory Rate 22 H 20 Blood Pressure 98/58 L 125/67 Pulse Oximetry 94 97 98 Oxygen Delivery Nasal Cannula Oxygen Flow Rate 2 06/20/23 20:47 06/20/23 20:58 06/20/23 20:00 Temperature Pulse Rate Respiratory Rate 20 20 Blood Pressur
[2023-06-21] MEDS: FLUTICASONE/UMECLIDIN/VILANTER 100-62.5-25 MCG ELLIPTA 1 PUFF INHALATION (09:04)
[2023-06-21] MEDS: predniSONE 20 MG TABLET 40 MG PO (09:48)
[2023-06-21] MEDS: MULTIVITAMINS THERAPEUTIC TAB (*BKC) 1 TABLET PO (09:48)
[2023-06-21] MEDS: POTASSIUM CHLORIDE 20 MEQ ER TABLET 40 MEQ PO (09:48)
[2023-06-21] MEDS: NICOTINE (*PBKC) 21 MG PATCH 1 PATCH TRANSDERM (09:49)
--- NOTE | 2023-06-21 10:37 | PC.NURSE ---
Holding Metoprolol due to low BP per Dr. Graham's orders.
[2023-06-21 13:03] LABS: Magnesium 2.3 mg/dL (1.6-2.3); Potassium 3.9 mmol/L (3.4-5.0)
[2023-06-21] MEDS: oxyCODONE HCL (*CRX) 5 MG TAB IR 10 MG PO ×3 (13:18→21:50)
[2023-06-21] MEDS: LOPERAMIDE HCL 2 MG CAPSULE PO ×3 (14:23→17:27)
--- NOTE | 2023-06-21 18:54 | PC.NURSE ---
Patient spoke with Dr. Graham regarding concerns of not receiving pain medication due to low blood pressures. Per Dr. Graham, due to patient's DNR status and wishes to soon be hospice, okay for patient to refuse vital signs and okay for patient to receive pain medication regardless of pt's prior hypotensive episodes. Patient agreed with plan of care.
[2023-06-21] MEDS: QUEtiapine FUMARATE 100 MG TABLET PO (20:37)
[2023-06-21] MEDS: guaiFENesin 12 HR 600 MG TABCR 1200 MG PO (20:37)
[2023-06-21] MEDS: QUEtiapine FUMARATE 25 MG TABLET 50 MG PO (20:37)
[2023-06-21] MEDS: MIRTAZAPINE 15 MG TABLET 30 MG PO (20:38)
--- NOTE | 2023-06-22 01:03 | PC.NURSE ---
PT REFUSES VITAL SIGNS AND IV FLUIDS. STATES IM GOING HOSPICE.
[2023-06-22] MEDS: LOPERAMIDE HCL 2 MG CAPSULE PO ×3 (05:14→12:49)
[2023-06-22] MEDS: CENTRAL LINE FLUSH 10 ML IV PUSH ×2 (05:14→15:38)
[2023-06-22] MEDS: metroNIDAZOLE 500 MG/ISO 100ML 500 MG/100 ML BAG 100 MG IVPB ×2 (05:15→12:42)
[2023-06-22] MEDS: ONDANSETRON INJ 4 MG/2 ML VIAL IV PUSH ×2 (05:25→09:46)
[2023-06-22] MEDS: oxyCODONE HCL (*CRX) 5 MG TAB IR 10 MG PO ×2 (05:27→11:36)
[2023-06-22 05:45] LABS: Hemoglobin 9.3 g/dL (12.0-15.0); Mean Corpuscular HGB Conc 35.8 g/dl (32-36); Mean Corpuscular Volume 97.7 fl (80-100); Mean Platelet Volume 9.4 fl (7.4-10.4); Platelet Count Result 196 k/mm3 (150-375); Red Blood Count 2.66 M/mm3 (4.2-5.4); Red Cell Distribution Width 11.7 % (11.5-14.5)
[2023-06-22 05:56] LABS: Alanine Aminotransferase 24 U/L (6-35); Albumin Level 3.2 g/dL (3.5-5.1); Alkaline Phosphatase 64 U/L (38-126); Anion Gap 8 mmol/L (8-16); Aspartate Amino Transferase 18 U/L (14-36); Bilirubin,Total 0.3 mg/dL (0.2-1.3); Blood Urea Nitrogen 10 mg/dL (7-17); Calcium 8.3 mg/dL (8.4-10.2); Carbon Dioxide 23 mmol/L (22-30); Chloride 97 mmol/L (98-107); Estimated CRCL calculation 89 ml/min; Estimated Glomerular Filt Rate > 60; Glucose 140 mg/dL (65-110); Potassium 3.5 mmol/L (3.4-5.0); Sodium 128 mmol/L (137-145)
[2023-06-22 06:00] LABS: White Blood Count 1.2 K/mm3 (4.5-10.0)
[2023-06-22 06:24] LABS: Atypical Lymphocytes Present; Band Neutrophils Percent 9 % (0-6); Eosinophils Absolute Manual 0.03 K/mm3 (0.02-0.5); Eosinophils Percent Manual 3 % (0-4); Lymphocytes Absolute Manual 0.67 K/mm3 (1.1-4.5); Lymphocytes Percent Manual 56 % (18-44); Monocytes Percent Manual 9 % (3-9); Neutrophils Absolute Manual 0.38 K/mm3 (1.7-7.2); Neutrophils Percent Manual 23 % (46-73); Schistocytes None Seen (NORMAL); Total Cells Counted 100
[2023-06-22 06:25] LABS: Burr Cells 2+ (NORMAL)
[2023-06-22 06:27] LABS: Platelet Estimate Adequate (Adequate)
[2023-06-22 10:52] VITALS: RESP 16
[2023-06-22] MEDS: FLUTICASONE/UMECLIDIN/VILANTER 100-62.5-25 MCG ELLIPTA 1 PUFF INHALATION (10:52)
[2023-06-22 11:26] VITALS: BP 91/53; PULSE 112; O2SAT 98
[2023-06-22] MEDS: MULTIVITAMINS THERAPEUTIC TAB (*BKC) 1 TABLET PO (11:34)
[2023-06-22] MEDS: predniSONE 20 MG TABLET 40 MG PO (11:35)
[2023-06-22] MEDS: NICOTINE (*PBKC) 21 MG PATCH 1 PATCH TRANSDERM (11:38)
[2023-06-22] MEDS: cefTRIAXone 2 GM/NS 100 ML 2 GM/100 ML BAG IVPB (11:39)
--- NOTE | 2023-06-22 13:34 | PM.DS ---
DS: Admitting Diagnosis Discharge Date 06/22/23 Admitting Diagnosis Abdominal pain DS: Discharge Diagnosis Discharge Diagnosis (1) Colitis: Code(s): K52.9 - Noninfective gastroenteritis and colitis, unspecified Status: Acute (2) Abdominal pain, vomiting, and diarrhea: Code(s): R10.9 - Unspecified abdominal pain; R11.10 - Vomiting, unspecified; R19.7 - Diarrhea, unspecified Status: Acute (3) Neutropenia: Qualifiers: Neutropenia type: secondary to cancer chemotherapy Qualified Code(s): D70.1 - Agranulocytosis secondary to cancer chemotherapy; T45.1X5A - Adverse effect of antineoplastic and immunosuppressive drugs, initial encounter Code(s): D70.9 - Neutropenia, unspecified Status: Acute (4) Protein-calorie malnutrition, severe: Code(s): E43 - Unspecified severe protein-calorie malnutrition Status: Acute (5) Sinus tachycardia: Code(s): R00.0 - Tachycardia, unspecified Status: Acute (6) Small cell lung cancer: Code(s): C34.90 - Malignant neoplasm of unspecified part of unspecified bronchus or lung Status: Acute (7) COPD (chronic obstructive pulmonary disease): Code(s): J44.9 - Chronic obstructive pulmonary disease, unspecified Status: Acute DS: Summary Hospital Course Reason for hospitalization: 62-year-old female with history of lung cancer presenting with nausea, vomiting, diarrhea and severe abdominal cramping status post chemotherapy 5 days ago. Please see H&P for details. Hospital Course: Patient developed severe GI symptoms after chemotherapy treatment. She was having difficulty with oral intake. She was neutropenic and anemic on admission. Neutropenia precautions were undertaken. She had hyponatremia and hypokalemia. Magnesium was low as well and this was replaced. Potassium also was replaced and is normal. Sodium did improved to 128. Chest x-ray show worsening interstitial pulmonary edema pattern concerning also for atypical infection. CT of the abdomen pelvis however showed no abnormalities through the lung bases. She had mild diffuse large bowel wall thickening concerning for colitis. For this reason she was started on Flagyl and Rocephin. She was started on IV fluids. She has stage IV lung cancer and is aware of her prognosis. She spoke with staff and wanted to proceed with hospice care. Hospice consult was placed. Plan is for patient to return home with hospice care. Patient does wish to continue antibiotics. Status at Discharge Cognitive/behavioral status at discharge: stable Time Spent with Patient Time attestation: Total time spent providing and/or coordinating discharge services: 34 minutes Time spent: Greater than 30 minutes Exam Narrative: General: Chronically ill appearing female in no acute distress, alert and oriented per baseline HEENT: Atraumatic, normocephalic, mucous membranes moist CV: Regular rate and rhythm, S1, S2 Lungs: scattered rhonchi Abdomen: Soft, nondistended, +BS, mild LLQ tenderness Extremities: Normal to inspection Skin: No rashes noted, no lesions or wounds seen Psych: Euthymic, normal affect DS: Data Data Completed and Pending Labs on day of discharge: Labs from last 24 hours 06/22/23 05:21 WBC 1.2 L* RBC 2.66 L Hgb 9.3 L Hct 26.0 L MCV 97.7 MCH 35.0 H MCHC 35.8 RDW 11.7 Plt Count 196 MPV 9.4 Immature Gran % (Auto) Not Reportable Neut % (Auto) Not Reportable Lymph % (Auto) Not Reportable [place] % (Auto) Not Reportable Eos % (Auto) Not Reportable Baso % (Auto) Not Reportable Lymph # (Auto) Not Reportable [place] # (Auto) Not Reportable Eos # (Auto) Not Reportable Baso # (Auto) Not Reportable Abs Immat Gran (auto) Not Reportable Absolute Neuts (auto) Not Reportable Absolute Nucleated RBC Not Reportable Total Counted 100 Neutrophils % (Manual) 23 L Band Neutrophils % 9 H Lymphocytes % (Manual) 5
[2023-06-22] MEDS: HEPARIN SODIUM LOCK FLUSH 500 UNITS/5 ML SYRINGE IV PUSH (15:38)
== END 2023-06-22 16:05 | disposition hospice, home (50) | DRG 249 ==
LOC: ANHED 06-20 03:29 → ANH3MEDSUR 06-20 06:06 → ANH2MED 06-20 12:59
PROVIDERS: Student in an Organized Health Care Education/Training Program; Admitting Provider Internal Medicine; Emergency Provider Emergency Medicine; PCP Physician Assistant; Visit Provider Internal Medicine
DX: K52.9 Noninfective gastroenteritis and colitis, unspecified (principal); C34.90 Malignant neoplasm of unspecified part of unspecified bronchus or lung; E87.1 Hypo-osmolality and hyponatremia; E78.5 Hyperlipidemia, unspecified; E86.0 Dehydration; T45.1X5A Adverse effect of antineoplastic and immunosuppressive drugs, initial encounter; R00.0 Tachycardia, unspecified; F41.9 Anxiety disorder, unspecified; J44.9 Chronic obstructive pulmonary disease, unspecified; E87.6 Hypokalemia; Z68.26 Body mass index [BMI] 26.0-26.9, adult; Z85.3 Personal history of malignant neoplasm of breast; Z66 Do not resuscitate; Z90.710 Acquired absence of both cervix and uterus; Z87.891 Personal history of nicotine dependence
CPT/HCPCS: 36415; 71045; 74176; 80053; 81001; 83605; 83690; 83735; 84132; 85025; 87040; 87045; 87269; 87272; 87427; 87449; 94640; 96361; 96374; 96375; 99285; A9270; J0696; J1170; J1642; J1836; J2060; J2405; J3475; J3480; J7030; J7512